=== PATIENT | male | born 1975 | race American Indian/Alaskan Native ===

== ENCOUNTER 2016-08-20 09:43 | Emergency (ER) | payer SELFPAY ==
[2016-08-20 10:11] VITALS: BP 123/77
--- NOTE | 2016-08-20 10:43 | XRay Report ---
ROUTINE CHEST, TWO VIEWS: HISTORY: Shortness of breath. The trachea, heart, mediastinal contour, lung argueta and bony thorax are unremarkable. IMPRESSION: Unremarkable chest x-ray.
[2016-08-20 10:56] LABS: Basophils % (Auto) 0.7 % (0.0-1.8); Eosinophils % (Auto) 1.9 % (0.0-4.3); Hematocrit 38.4 % (35.5-45.6); Hemoglobin 12.5 gm/dl (11.8-15.2); Mean Corpuscular HGB Conc 33 % (32-34); Mean Corpuscular Volume 78 fl (84-94); Platelet Count 292 K/mm3 (140-440); Red Blood Count 4.95 M/mm3 (3.65-5.03); Red Cell Distribution Width 14.6 % (13.2-15.2)
[2016-08-20 10:58] LABS: Mean Corpuscular Hemoglobin 25 pg (28-32)
[2016-08-20 11:18] LABS: Anion Gap 23 mmol/L; B-Hydroxybutyrate 0.8 mg/dL (0.2-2.8); BUN/Creatinine Ratio 16.25; Blood Urea Nitrogen 13 mg/dL (9-20); Calcium 9.7 mg/dL (8.4-10.2); Carbon Dioxide 25 mmol/L (22-30); Chloride 94.5 mmol/L (98-107); Glucose 374 mg/dL (75-100); Potassium 4.3 mmol/L (3.6-5.0); Sodium 138 mmol/L (137-145)
[2016-08-20 11:53] LABS: Bilirubin,Urine NEG (Negative); Blood,Urine NEG (Negative); Ketones,Urine NEG (Negative); Leukocyte Esterase,Urine NEG (Negative); Mucus,Urine FEW /HPF; Nitrite,Urine NEG (Negative); Protein,Urine <15 mg/dL mg/dL (Negative); Urobilinogen,Urine < 2.0 mg/dL (<2.0); WBC,Urine < 1.0 /HPF (0.0-6.0)
[2016-08-20] MEDS ORDERED: TORADOL IM ONE (17:39)
[2016-08-20] MEDS ORDERED: PERCOCET 5/325 PO ONE (17:39)
--- NOTE | 2016-08-20 18:06 | Emergency Department Report ---
ED General Adult HPI - General Chief complaint: Dyspnea/Respdistress Stated complaint: LT HAND SWELLING/NUMBNESS/ELEVATED SUGAR Time Seen by Provider: 08/20/16 17:18 Source: patient Mode of arrival: Ambulatory Limitations: No Limitations - History of Present Illness Initial comments: 41-year-old male with a past medical history of hypertension and chronic back pain with associated left leg radiculopathy presents to the hospital with complaints of elevated sugar and intermittent left hand pain and swelling. Patient denies a previous history of diabetes. His sugar was in the 380s at home so he came to the ER for evaluation. Patient last meal was this morning he has been drinking water since being in the ED. Patient complains of intermittent left hand swelling for the last 4 days. Pain is in the whole hand , worse with palpation and movement. No alleviating factors. Pain rated moderate to severe in intensity. He complains of shooting pain extending from his hand up to his elbow. Denies a previous history of gout or trauma. Patient has been having intermittent hand swelling for the past 6-7 months and has not had it evaluated by a physician. PMD: None - Related Data Previous Rx's Medication Instructions Recorded Last Taken Type Carvedilol [Coreg] 12.5 mg PO BID #60 tablet 12/03/15 Unknown Rx HYDROcodone/APAP 5-325 [[place] 1 each PO Q6HR PRN #20 tablet 12/03/15 Unknown Rx 5-325 mg TAB] Lisinopril/Hydrochlorothiazide 1 tab PO QDAY #30 tablet 12/03/15 Unknown Rx [Zestoretic 20-25 mg] amLODIPine [Norvasc] 10 mg PO DAILY #30 tablet 12/03/15 Unknown Rx cloNIDine [Catapres] 0.1 mg PO BID #60 tablet 12/03/15 Unknown Rx Diazepam Tab [Valium] 5 mg PO TID PRN #12 tablet 03/03/16 Unknown Rx Ibuprofen [Motrin 600 MG tab] 600 mg PO Q8H PRN #20 tablet 03/03/16 Unknown Rx hydrALAZINE [Apresoline TAB] 25 mg PO Q8HR #90 tab 03/03/16 Unknown Rx Ibuprofen [Motrin] 800 mg PO Q8HR PRN #30 tablet 08/20/16 Unknown Rx metFORMIN [Glucophage] 500 mg PO BID #60 tablet 08/20/16 Unknown Rx oxyCODONE /ACETAMINOPHEN [Percocet 1 tab PO Q6HR PRN #20 tablet 08/20/16 Unknown Rx 5/325] Allergies Allergy/AdvReac Type Severity Reaction Status Date / Time tomato [Tomato] Allergy Swelling Verified 03/03/16 09:43 ED Review of Systems ROS: Stated complaint: LT HAND SWELLING/NUMBNESS/ELEVATED SUGAR Other details as noted in HPI Comment: All other systems reviewed and negative Other: Constitutional: No fevers chills Eyes: No eye pain visual changes ENT: No ear pain or throat pain Neck: Denies pain Respiratory: Denies cough wheezing shortness of breath Cardiovascular: Denies chest pain, palpitations, syncope GI: Denies abdominal pain, nausea, vomiting, diarrhea : Denies dysuria Musculoskeletal: as per hpi Skin: Denies rash, lesions, erythema Neurologic: Denies headache, numbness, weakness ED Past Medical Hx - Past Medical History Hx Hypertension: Yes Hx CVA: Yes (MILD LEFT SIDED WEAKNESS) Hx Congestive Heart Failure: No Hx Diabetes: No Hx GERD: Yes Hx Headaches / Migraines: Yes Hx Asthma: No Hx COPD: No Additional medical history: sleep apnea. chronic back pain - Surgical History Additional Surgical History: Right upper extremity surgery secondary to trauma, cardiac catheterization - Social History Smoking Status: Never Smoker Substance Use Type: Prescribed - Medications Home Medications: Home Medications Medication Instructions Recorded Confirmed Last Taken Type Carvedilol [Coreg] 12.5 mg PO BID #60 tablet 12/03/15 Unknown Rx HYDROcodone/APAP 5-325 [[place] 1 each PO Q6HR PRN #20 tablet 12/03/15 Unknown Rx 5-325 mg TAB] Lisinopril/Hydrochlorothiazide 1 tab PO QDAY #30 tablet 12/03/15 Unknown Rx [Zestoretic 20-25 mg] amLODIPine [Norvasc] 10 mg PO DAILY #30 tablet 12/03/15 Unknown Rx cloNIDine [Catapres] 0.1 mg PO BID #60 tablet 12/03/15 Unknown Rx Diazepam Tab [Valium] 5 mg PO TID PRN #12 tablet 03/03/16 Unknown Rx Ibuprofen [Motrin 600 MG tab] 600 mg PO Q8H PRN #20 tablet 03/03/16 Unknown Rx hydrALAZINE [Apresoline TAB] 25 mg PO Q8HR #90 tab 03/03/16 Unknown Rx Ibuprofen [Motrin] 800 mg PO Q8HR PRN #30 tablet 08/20/16 Unknown Rx metFORMIN [Glucophage] 500 mg PO BID #60 tablet 08/20/16 Unknown Rx oxyCODONE /ACETAMINOPHEN [Percocet 1 tab PO Q6HR PRN #20 tablet 08/20/16 Unknown Rx 5/325] ED Physical Exam - General Limitations: No Limitations - Other Other exam information: General: No limitations, patient is alert in no acute distress Head exam: Atraumatic, normocephalic Eyes exam: Normal appearance, pupils equal reactive to light, extraocular movements intact ENT: Moist mucous membrane, normal oropharynx Neck exam: Normal inspection, full range of motion, no meningismus nontender Respiratory exam: Clear to auscultation bilateral, no wheezes, rales, crackles Cardiovascular: Normal rate and rhythm, normal heart sounds Abdomen: Soft, nondistended, and nontender, with normal bowel sounds, no rebound, or guarding Extremity: Full range of motion, mild generalized left hand swelling noted without warmth or erythema. Tenderness to the entire hand without any specific area being more tender. Refill less than 2 seconds. Back: Normal Inspection, full range of motion, chronic back pain Neurologic: Alert, oriented x3, cranial nerves intact, chronic left leg radiculopathy/numbness Psychiatric: normal affect, normal mood Skin: Warm, dry, intact ED Course Vital Signs 08/20/16 10:06 Temperature 97.7 F Pulse Rate 81 Respiratory 18 Rate Blood Pressure 123/77 O2 Sat by Pulse 95 Oximetry - Reevaluation(s) Reevaluation #1: 08/20/16 20:12 Patient treated in the ED with Percocet and insulin subcutaneous as well as left wrist splint ED Medical Decision Making - Lab Data Result diagrams: 08/20/16 10:44 08/20/16 10:44 Lab Results 08/20/16 08/20/16 08/20/16 Range/Units 10:11 10:44 10:44 WBC 5.0 (4.5-11.0) K/mm3 RBC 4.95 (3.65-5.03) M/mm3 Hgb 12.5 (11.8-15.2) gm/dl Hct 38.4 (35.5-45.6) % MCV 78 L (84-94) fl MCH 25 L (28-32) pg MCHC 33 (32-34) % RDW 14.6 (13.2-15.2) % Plt Count 292 (140-440) K/mm3 Lymph % (Auto) 28.1 (13.4-35.0) % [place] % (Auto) 7.2 (0.0-7.3) % Eos % (Auto) 1.9 (0.0-4.3) % Baso % (Auto) 0.7 (0.0-1.8) % Lymph # 1.4 (1.2-5.4) K/mm3 [place] # 0.4 (0.0-0.8) K/mm3 Eos # 0.1 (0.0-0.4) K/mm3 Baso # 0.0 (0.0-0.1) K/mm3 Seg Neutrophils % 62.1 (40.0-70.0) % Seg Neutrophils # 3.1 (1.8-7.7) K/mm3 VBG pH (7.320-7.420) Sodium 138 (137-145) mmol/L Potassium 4.3 (3.6-5.0) mmol/L Chloride 94.5 L (98-107) mmol/L Carbon Dioxide 25 (22-30) mmol/L Anion Gap 23 mmol/L BUN 13 (9-20) mg/dL Creatinine 0.8 (0.8-1.5) mg/dL Estimated GFR > 60 ml/min BUN/Creatinine Ratio 16.25 % Glucose 374 H (75-100) mg/dL POC Glucose 387 H (70-105) Hemoglobin A1c (4-6) % Uric Acid (3.5-7.6) mg/dL Calcium 9.7 (8.4-10.2) mg/dL Troponin T < 0.010 (0.00-0.029) ng/mL Urine Color (Yellow) Urine Turbidity (Clear) Urine pH (5.0-7.0) Ur Specific [place] (1.003-1.030) Urine Protein (Negative) mg/dL Urine Glucose (UA) (Negative) mg/dL Urine Ketones (Negative) mg/dL Urine Blood (Negative) Urine Nitrite (Negative) Urine Bilirubin (Negative) Urine Urobilinogen (<2.0) mg/dL Ur Leukocyte Esterase (Negative) Urine WBC (Auto) (0.0-6.0) /HPF Urine RBC (Auto) (0.0-6.0) /HPF Urine Mucus /HPF Ketones 0.8 (0.2-2.8) mg/dL 08/20/16 08/20/16 08/20/16 Range/Units 10:44 10:44 10:44 WBC (4.5-11.0) K/mm3 RBC (3.65-5.03) M/mm3 Hgb (11.8-15.2) gm/dl Hct (35.5-45.6) % MCV (84-94) fl MCH (28-32) pg MCHC (32-34) % RDW (13.2-15.2) % Plt Count (140-440) K/mm3 Lymph % (Auto) (13.4-35.0) % [place] % (Auto) (0.0-7.3) % Eos % (Auto) (0.0-4.3) % Baso % (Auto) (0.0-1.8) % Lymph # (1.2-5.4) K/mm3 [place] # (0.0-0.8) K/mm3 Eos # (0.0-0.4) K/mm3 Baso # (0.0-0.1) K/mm3 Seg Neutrophils % (40.0-70.0) % Seg Neutrophils # (1.8-7.7) K/mm3 VBG pH 7.403 (7.320-7.420) Sodium (137-145) mmol/L Potassium (3.6-5.0) mmol/L Chloride (98-107) mmol/L Carbon Dioxide (22-30) mmol/L Anion Gap mmol/L BUN (9-20) mg/dL Creatinine (0.8-1.5) mg/dL Estimated GFR ml/min BUN/Creatinine Ratio % Glucose (75-100) mg/dL POC Glucose (70-105) Hemoglobin A1c 14.7 H (4-6) % Uric Acid 7.0 (3.5-7.6) mg/dL Calcium (8.4-10.2) mg/dL Troponin T (0.00-0.029) ng/mL Urine Color (Yellow) Urine Turbidity (Clear) Urine pH (5.0-7.0) Ur Specific [place] (1.003-1.030) Urine Protein (Negative) mg/dL Urine Glucose (UA) (Negative) mg/dL Urine Ketones (Negative) mg/dL Urine Blood (Negative) Urine Nitrite (Negative) Urine Bilirubin (Negative) Urine Urobilinogen (<2.0) mg/dL Ur Leukocyte Esterase (Negative) Urine WBC (Auto) (0.0-6.0) /HPF Urine RBC (Auto) (0.0-6.0) /HPF Urine Mucus /HPF Ketones (0.2-2.8) mg/dL 08/20/16 08/20/16 Range/Units 11:32 17:28 WBC (4.5-11.0) K/mm3 RBC (3.65-5.03) M/mm3 Hgb (11.8-15.2) gm/dl Hct (35.5-45.6) % MCV (84-94) fl MCH (28-32) pg MCHC (32-34) % RDW (13.2-15.2) % Plt Count (140-440) K/mm3 Lymph % (Auto) (13.4-35.0) % [place] % (Auto) (0.0-7.3) % Eos % (Auto) (0.0-4.3) % Baso % (Auto) (0.0-1.8) % Lymph # (1.2-5.4) K/mm3 [place] # (0.0-0.8) K/mm3 Eos # (0.0-0.4) K/mm3 Baso # (0.0-0.1) K/mm3 Seg Neutrophils % (40.0-70.0) % Seg Neutrophils # (1.8-7.7) K/mm3 VBG pH (7.320-7.420) Sodium (137-145) mmol/L Potassium (3.6-5.0) mmol/L Chloride (98-107) mmol/L Carbon Dioxide (22-30) mmol/L Anion Gap mmol/L BUN (9-20) mg/dL Creatinine (0.8-1.5) mg/dL Estimated GFR ml/min BUN/Creatinine Ratio % Glucose (75-100) mg/dL POC Glucose 198 H (70-105) Hemoglobin A1c (4-6) % Uric Acid (3.5-7.6) mg/dL Calcium (8.4-10.2) mg/dL Troponin T (0.00-0.029) ng/mL Urine Color Straw (Yellow) Urine Turbidity Clear (Clear) Urine pH 5.0 (5.0-7.0) Ur Specific [place] 1.024 (1.003-1.030) Urine Protein <15 mg/dl (Negative) mg/dL Urine Glucose (UA) >=500 (Negative) mg/dL Urine Ketones Neg (Negative) mg/dL Urine Blood Neg (Negative) Urine Nitrite Neg (Negative) Urine Bilirubin Neg (Negative) Urine Urobilinogen < 2.0 (<2.0) mg/dL Ur Leukocyte Esterase Neg (Negative) Urine WBC (Auto) < 1.0 (0.0-6.0) /HPF Urine RBC (Auto) 3.0 (0.0-6.0) /HPF Urine Mucus Few /HPF Ketones (0.2-2.8) mg/dL - EKG Data -: EKG Interpreted by Me (nsr 72 flat lat t waves) - EKG Data When compared to previous EKG there are: no significant change (compared to 12/02) - Radiology Data Radiology results: image reviewed (cxr : naf) - Medical Decision Making Elevated hemoglobin A1c conference. Patient is a new onset diabetic. He will be started metformin 500 mg twice a day., Shortness time the cause of patient' s intermittent left hand pain and swelling. Does not appear to be infectious or trauma related at this time. Patient placed in a wrist splint for comfort and will be instructed to follow-up with primary care doctor for further evaluation. - Differential Diagnosis arthritis, radiculopathy, carpal tunnel syndrome, neuropathy, diabetes Critical Care Time: No Critical care attestation.: If time is entered above; I have spent that time in minutes in the direct care of this critically ill patient, excluding procedure time. ED Disposition Clinical Impression: Chronic back pain, Left hand pain, Diabetes mellitus, new onset Disposition: DISCHARGED TO HOME OR SELFCARE Is pt being admited?: No Does the pt Need Aspirin: No Condition: Stable Instructions: Arthralgia (ED), Diabetes Mellitus Type 2 in Adults (ED) Additional Instructions: Take the medication as prescribed. Is very important that you follow up with the primary care doctor and orthopedic doctor provided for further workup and evaluation Prescriptions: Ibuprofen [Motrin] 800 mg PO Q8HR PRN #30 tablet PRN Reason: Pain metFORMIN [Glucophage] 500 mg PO BID #60 tablet oxyCODONE /ACETAMINOPHEN [Percocet 5/325] 1 tab PO Q6HR PRN #20 tablet PRN Reason: Pain Referrals: [facility] [Provider Group] - 3-5 Days KOLE GUNDERSON MD [Staff Physician] - 3-5 Days (orthopedic) JOSE SIFUENTES MD [Staff Physician] - 3-5 Days (primary care) Time of Disposition: 20:18
== END 2016-08-20 20:33 | disposition home or self-care (01) ==
LOC: ED 09:43
DX: E11.9 Type 2 diabetes mellitus without complications (principal); M54.9 Dorsalgia, unspecified; G89.29 Other chronic pain; M79.642 Pain in left hand; I10 Essential (primary) hypertension; K21.9 Gastro-esophageal reflux disease without esophagitis; G43.909 Migraine, unspecified, not intractable, without status migrainosus; Z86.73 Personal history of transient ischemic attack (TIA), and cerebral infarction without residual deficits
CPT/HCPCS: 36415; 71020; 80048; 81001; 82010; 82805; 82962; 83036; 84484; 84550; 85025; 93005; 93010; 96372; 99284; J1885; J1815

== ENCOUNTER 2016-10-31 09:26 | Emergency (ER) | payer SELFPAY ==
[2016-10-31 10:21] VITALS: BP 125/76
--- NOTE | 2016-10-31 11:01 | Emergency Department Report ---
ED Neck Pain/Injury HPI - General Chief Complaint: Neck Pain/Injury Stated Complaint: LEFT ARM SWOLLEN/NUMB/NECK PAINS/STIFFNESS/CHEST P Time Seen by Provider: 10/31/16 10:46 Source: patient Mode of arrival: Ambulatory Limitations: Physical Limitation - History of Present Illness Initial Comments: patient states that 2 days ago he was hit in left shoulder/arm by a door. The next day his upper arm was hurting and then today he woke up with pain in left side of his neck. MD Complaint: neck pain -: Gradual, This morning Radiation: left shoulder Severity: moderate Severity scale (0 -10): 5 Quality: sharp, other (tight) Consistency: intermittent Improves With: remaining still Worsens With: movement of extremity, movement of neck Associated Symptoms: denies: headache, fever, numbness, tingling, weakness, vertigo, difficulty walking, swollen glands, nausea, vomiting Treatments Prior to Arrival: none - Related Data Previous Rx's Medication Instructions Recorded Last Taken Type Carvedilol [Coreg] 12.5 mg PO BID #60 tablet 12/03/15 Unknown Rx Lisinopril/Hydrochlorothiazide 1 tab PO QDAY #30 tablet 12/03/15 Unknown Rx [Zestoretic 20-25 mg] amLODIPine [Norvasc] 10 mg PO DAILY #30 tablet 12/03/15 Unknown Rx cloNIDine [Catapres] 0.1 mg PO BID #60 tablet 12/03/15 Unknown Rx hydrALAZINE [Apresoline TAB] 25 mg PO Q8HR #90 tab 03/03/16 Unknown Rx metFORMIN [Glucophage] 500 mg PO BID #60 tablet 08/20/16 Unknown Rx Cyclobenzaprine [Flexeril] 10 mg PO TID PRN #30 tablet 10/31/16 Unknown Rx Naproxen [Naprosyn TAB] 500 mg PO BID #30 tablet 10/31/16 Unknown Rx traMADol [Ultram] 50 mg PO Q4HR PRN #30 tablet 10/31/16 Unknown Rx Allergies Allergy/AdvReac Type Severity Reaction Status Date / Time tomato [Tomato] Allergy Swelling Verified 10/31/16 10:16 ED Review of Systems ROS: Stated complaint: LEFT ARM SWOLLEN/NUMB/NECK PAINS/STIFFNESS/CHEST P Other details as noted in HPI Constitutional: denies: chills, fever Eyes: denies: eye pain, eye discharge, vision change ENT: denies: ear pain, throat pain Respiratory: denies: cough, shortness of breath, wheezing Cardiovascular: denies: chest pain, palpitations Endocrine: no symptoms reported Gastrointestinal: denies: abdominal pain, nausea, diarrhea Genitourinary: denies: urgency, dysuria Musculoskeletal: arthralgia, myalgia. denies: back pain Skin: denies: rash, lesions Neurological: denies: headache, weakness, numbness, paresthesias Psychiatric: denies: anxiety, depression Hematological/Lymphatic: denies: easy bleeding, easy bruising ED Past Medical Hx - Past Medical History Hx Hypertension: Yes Hx CVA: Yes (MILD LEFT SIDED WEAKNESS) Hx Congestive Heart Failure: No Hx Diabetes: Yes Hx GERD: Yes Hx Headaches / Migraines: Yes Hx Asthma: No Hx COPD: No Additional medical history: sleep apnea. chronic back pain - Surgical History Additional Surgical History: Right upper extremity surgery secondary to trauma, cardiac catheterization - Social History Smoking Status: Former Smoker Substance Use Type: Prescribed - Medications Home Medications: Home Medications Medication Instructions Recorded Confirmed Last Taken Type Carvedilol [Coreg] 12.5 mg PO BID #60 tablet 12/03/15 Unknown Rx Lisinopril/Hydrochlorothiazide 1 tab PO QDAY #30 tablet 12/03/15 Unknown Rx [Zestoretic 20-25 mg] amLODIPine [Norvasc] 10 mg PO DAILY #30 tablet 12/03/15 Unknown Rx cloNIDine [Catapres] 0.1 mg PO BID #60 tablet 12/03/15 Unknown Rx hydrALAZINE [Apresoline TAB] 25 mg PO Q8HR #90 tab 03/03/16 Unknown Rx metFORMIN [Glucophage] 500 mg PO BID #60 tablet 08/20/16 Unknown Rx Cyclobenzaprine [Flexeril] 10 mg PO TID PRN #30 tablet 10/31/16 Unknown Rx Naproxen [Naprosyn TAB] 500 mg PO BID #30 tablet 10/31/16 Unknown Rx traMADol [Ultram] 50 mg PO Q4HR PRN #30 tablet 10/31/16 Unknown Rx ED Physical Exam - General Limitations: Physical Limitation General appearance: alert, in no apparent distress - Head Head exam: Present: atraumatic, normocephalic - Eye Eye exam: Present: normal appearance, PERRL, EOMI Pupils: Present: normal accommodation - ENT ENT exam: Present: normal exam, mucous membranes moist - Neck Neck exam: Present: normal inspection, tenderness (left lateral muscle tenderness and swelling noted ). Absent: full ROM (limited right lateral rotation due to pain), lymphadenopathy, thyromegaly - Respiratory Respiratory exam: Present: normal lung sounds bilaterally. Absent: respiratory distress - Cardiovascular Cardiovascular Exam: Present: regular rate, normal rhythm. Absent: systolic murmur, diastolic murmur, rubs, gallop - GI/Abdominal GI/Abdominal exam: Present: soft, normal bowel sounds - Rectal Rectal exam: Present: deferred - Extremities Exam Extremities exam: Present: normal inspection, tenderness (left shoulder tenderness), normal capillary refill. Absent: full ROM (limited left shoulder abduction due to pain), pedal edema, joint swelling - Expanded Upper Extremity Exam Left Shoulder Exam: Present: tenderness (left superior and lateral shoulder and proximal arm tenderness). Absent: full ROM (limitied abduction due to pain), abrasion, laceration, ecchymosis, deformity, dislocation, erythema, tenderness over AC joint Elbow exam: Present: normal inspection Vascular: Present: normal capillary refill. Absent: vascular compromise, pulse deficit brachial art - Back Exam Back exam: Present: normal inspection - Neurological Exam Neurological exam: Present: alert, oriented X3, CN II-XII intact, reflexes normal. Absent: motor sensory deficit - Psychiatric Psychiatric exam: Present: normal affect, normal mood - Skin Skin exam: Present: warm, dry, intact, normal color. Absent: rash ED Course Vital Signs 10/31/16 10:18 Temperature 98.2 F Pulse Rate 77 Respiratory 16 Rate Blood Pressure 125/76 O2 Sat by Pulse 96 Oximetry ED Medical Decision Making - Radiology Data Radiology results: report reviewed, image reviewed Spondylosis of C4-C5 and C5-C6. Shoulder with arthritic changes and cortical cystic irregularity consistent with old injury vs chronic impingement. No acute pathology noted - Medical Decision Making Patient is non-toxic and hemodynamically stable. Exam findings are consistent with muscular injury and spasm. Images reviewed and discussed with patient. Will treat conservatively now with referral to ortho. Patient is stable for discharge. Critical care attestation.: If time is entered above; I have spent that time in minutes in the direct care of this critically ill patient, excluding procedure time. ED Disposition Clinical Impression: Muscle spasms of neck, Left shoulder pain, Contusion of left arm Disposition: DISCHARGED TO HOME OR SELFCARE Is pt being admited?: No Does the pt Need Aspirin: No Condition: Good Instructions: Spasmodic Torticollis (ED), Contusion in Adults (ED), Degenerative Disc Disease (ED) Prescriptions: Cyclobenzaprine [Flexeril] 10 mg PO TID PRN #30 tablet PRN Reason: Muscle Spasm Naproxen [Naprosyn TAB] 500 mg PO BID #30 tablet traMADol [Ultram] 50 mg PO Q4HR PRN #30 tablet PRN Reason: Pain Referrals: PRIMARY CARE, [Primary Care Provider] - 3-5 Days KOLE GUNDERSON MD [Staff Physician] - 3-5 Days Time of Disposition: 12:26
--- NOTE | 2016-10-31 11:55 | XRay Report ---
Left shoulder 3 views: History: Left shoulder pain. Injury. Findings: Mild arthritic changes a.c. joint. The glenohumeral joint appears unremarkable. Cortical irregularity with cystic changes at the greater tuberosity may be related to old injury/chronic impingement. No soft tissue calcification. Impression: Findings as detailed above.
--- NOTE | 2016-10-31 11:56 | XRay Report ---
Cervical spine 3 views: History: Sharp pain radiating to neck. Findings: Normal height of vertebral bodies. Minimal decrease in height of C4-C5 and C5-C6 with anterior osteophytes at the articular surfaces. No fracture. Normal prevertebral soft tissue. Impression: Spondylosis C4-C5 and C5-C6.
== END 2016-10-31 12:49 | disposition home or self-care (01) ==
LOC: ED 09:26
DX: S40.022A Contusion of left upper arm, initial encounter (principal); I10 Essential (primary) hypertension; I63.9 Cerebral infarction, unspecified; E11.9 Type 2 diabetes mellitus without complications; K21.9 Gastro-esophageal reflux disease without esophagitis; M25.512 Pain in left shoulder; M62.838 Other muscle spasm; G89.29 Other chronic pain; Z87.891 Personal history of nicotine dependence; Z91.018 Allergy to other foods; W22.8XXA Striking against or struck by other objects, initial encounter; Y93.89 Activity, other specified; Y99.9 Unspecified external cause status; Y92.89 Other specified places as the place of occurrence of the external cause
CPT/HCPCS: 72040

== ENCOUNTER 2017-03-29 15:54 | Emergency (ER) | payer SELFPAY ==
[2017-03-29 16:38] LABS: Basophils % (Auto) 0.4 % (0.0-1.8); Eosinophils % (Auto) 1.2 % (0.0-4.3); Hemoglobin 11.8 gm/dl (11.8-15.2); Mean Corpuscular HGB Conc 34 % (32-34); Mean Corpuscular Volume 75 fl (84-94); Platelet Count 272 K/mm3 (140-440); Red Blood Count 4.67 M/mm3 (3.65-5.03); Red Cell Distribution Width 15.5 % (13.2-15.2); White Blood Count 6.8 K/mm3 (4.5-11.0)
[2017-03-29 16:49] LABS: Mean Corpuscular Hemoglobin 25 pg (28-32)
[2017-03-29 17:07] LABS: Anion Gap 20 mmol/L; BUN/Creatinine Ratio 25.71; Blood Urea Nitrogen 18 mg/dL (9-20); Calcium 9.4 mg/dL (8.4-10.2); Carbon Dioxide 26 mmol/L (22-30); Chloride 95.8 mmol/L (98-107); Glucose 140 mg/dL (75-100); Potassium 3.5 mmol/L (3.6-5.0); Sodium 138 mmol/L (137-145)
--- NOTE | 2017-03-29 17:31 | Emergency Department Report ---
ED Chest Pain HPI - General Chief Complaint: Chest Pain Stated Complaint: CHEST PAIN Time Seen by Provider: 03/29/17 17:21 Source: patient Mode of arrival: Stretcher Limitations: No Limitations - History of Present Illness Initial Comments: 42 years old male history of high blood pressure diabetes and irregular heartbeat presented with left-sided chest pain that is being unknown for 2 weeks worse since last night associated with shortness of breath described the pain as pressure that radiated to his left shoulder. Patient also stated that he's been having a headache for the last 2 month does not have any history of frequent headache before. Patient denied any fever no nausea no vomiting. MD Complaint: chest pain -: Gradual Onset: during rest, during exertion Severity: moderate Severity scale (0 -10): 6 Quality: pressure Worsens With: exertion - Related Data Previous Rx's Medication Instructions Recorded Last Taken Type Carvedilol [Coreg] 12.5 mg PO BID #60 tablet 12/03/15 Unknown Rx Lisinopril/Hydrochlorothiazide 1 tab PO QDAY #30 tablet 12/03/15 Unknown Rx [Zestoretic 20-25 mg] amLODIPine [Norvasc] 10 mg PO DAILY #30 tablet 12/03/15 Unknown Rx cloNIDine [Catapres] 0.1 mg PO BID #60 tablet 12/03/15 Unknown Rx hydrALAZINE [Apresoline TAB] 25 mg PO Q8HR #90 tab 03/03/16 Unknown Rx metFORMIN [Glucophage] 500 mg PO BID #60 tablet 08/20/16 Unknown Rx Cyclobenzaprine [Flexeril] 10 mg PO TID PRN #30 tablet 10/31/16 Unknown Rx Naproxen [Naprosyn TAB] 500 mg PO BID #30 tablet 10/31/16 Unknown Rx traMADol [Ultram] 50 mg PO Q4HR PRN #30 tablet 10/31/16 Unknown Rx Amoxicillin [Amoxicillin TAB] 875 mg PO BID #14 tablet 03/29/17 Unknown Rx Ondansetron [Zofran Odt] 4 mg PO Q8HR PRN #14 tab.rapdis 03/29/17 Unknown Rx Prednisone [predniSONE 10 mg 10 mg PO .TAPER #1 tab.ds.pk 03/29/17 Unknown Rx (6-Day Pack, 21 Tabs)] traMADol [Ultram 50 MG tab] 50 mg PO Q4HR PRN #14 tablet 03/29/17 Unknown Rx Allergies Allergy/AdvReac Type Severity Reaction Status Date / Time tomato [Tomato] Allergy Swelling Verified 10/31/16 10:16 Heart Score - HEART Score History: Moderately suspicious EKG: Non-specific Age: < 45 Risk factors: 1-2 risk factors Troponin: < normal limit HEART Score: 3 - Critical Actions Critical Actions: 0-3 pts:0.9-1.7%risk of adverse cardiac event.Candidate for discharge ED Review of Systems ROS: Stated complaint: CHEST PAIN Other details as noted in HPI Comment: All other systems reviewed and negative Constitutional: denies: chills, fever Respiratory: shortness of breath. denies: cough Cardiovascular: chest pain. denies: palpitations Gastrointestinal: denies: nausea, vomiting Skin: denies: rash, lesions ED Past Medical Hx - Past Medical History Hx Hypertension: Yes Hx CVA: Yes (MILD LEFT SIDED WEAKNESS) Hx Congestive Heart Failure: No Hx Diabetes: Yes Hx GERD: Yes Hx Headaches / Migraines: Yes Hx Asthma: No Hx COPD: No Additional medical history: sleep apnea. chronic back pain - Surgical History Additional Surgical History: Right upper extremity surgery secondary to trauma, cardiac catheterization - Social History Smoking Status: Never Smoker Substance Use Type: None - Medications Home Medications: Home Medications Medication Instructions Recorded Confirmed Last Taken Type Carvedilol [Coreg] 12.5 mg PO BID #60 tablet 12/03/15 Unknown Rx Lisinopril/Hydrochlorothiazide 1 tab PO QDAY #30 tablet 12/03/15 Unknown Rx [Zestoretic 20-25 mg] amLODIPine [Norvasc] 10 mg PO DAILY #30 tablet 12/03/15 Unknown Rx cloNIDine [Catapres] 0.1 mg PO BID #60 tablet 12/03/15 Unknown Rx hydrALAZINE [Apresoline TAB] 25 mg PO Q8HR #90 tab 03/03/16 Unknown Rx metFORMIN [Glucophage] 500 mg PO BID #60 tablet 08/20/16 Unknown Rx Cyclobenzaprine [Flexeril] 10 mg PO TID PRN #30 tablet 10/31/16 Unknown Rx Naproxen [Naprosyn TAB] 500 mg PO BID #30 tablet 10/31/16 Unknown Rx traMADol [Ultram] 50 mg PO Q4HR PRN #30 tablet 10/31/16 Unknown Rx Amoxicillin [Amoxicillin TAB] 875 mg PO BID #14 tablet 03/29/17 Unknown Rx Ondansetron [Zofran Odt] 4 mg PO Q8HR PRN #14 tab.rapdis 03/29/17 Unknown Rx Prednisone [predniSONE 10 mg 10 mg PO .TAPER #1 tab.ds.pk 03/29/17 Unknown Rx (6-Day Pack, 21 Tabs)] traMADol [Ultram 50 MG tab] 50 mg PO Q4HR PRN #14 tablet 03/29/17 Unknown Rx ED Physical Exam - General Limitations: No Limitations General appearance: alert, in no apparent distress - Head Head exam: Present: atraumatic, normocephalic - Eye Eye exam: Present: normal appearance - ENT ENT exam: Present: normal exam - Neck Neck exam: Present: normal inspection. Absent: tenderness, full ROM, lymphadenopathy - Respiratory Respiratory exam: Present: normal lung sounds bilaterally. Absent: wheezes, rales, rhonchi - Cardiovascular Cardiovascular Exam: Present: regular rate, normal rhythm, normal heart sounds - GI/Abdominal GI/Abdominal exam: Present: soft. Absent: tenderness, guarding, rebound, rigid , mass, bruit, pulsatile mass, hernia - Extremities Exam Extremities exam: Present: normal inspection, full ROM - Back Exam Back exam: Present: normal inspection. Absent: CVA tenderness (R), CVA tenderness (L) - Neurological Exam Neurological exam: Present: alert, oriented X3, CN II-XII intact, normal gait - Psychiatric Psychiatric exam: Present: normal affect, normal mood - Skin Skin exam: Present: warm, intact, normal color ED Course Vital Signs 03/29/17 03/29/17 03/29/17 16:20 17:13 18:32 Temperature 98.1 F 98 F Pulse Rate 84 82 77 Respiratory 18 17 16 Rate Blood Pressure 125/80 125/79 129/71 [Left] O2 Sat by Pulse 98 98 98 Oximetry - Reevaluation(s) Reevaluation #1: 03/29/17 20:35 Patient is that he is feeling much better inform him about his blood work and his CT scan of the brain which is basically negative except for sinusitis. Patient does have 2 troponin negative in the ER advised him to follow-up with his primary care physician for further managment. REYNALDO score - Reynaldo Score Age > 65: (0) No Aspirin use within the Past 7 Days: (0) No 3 or more CAD Risk Factors: (0) No 2 or more Angina events in past 24 hrs: (1) Yes Known CAD with more than 50% Stenosis: (0) No Elevated Cardiac Markers: (0) No ST Deviation Greater than 0.5mm: (0) No REYNALDO Score: 1 ED Medical Decision Making - Lab Data Result diagrams: 03/29/17 16:23 03/29/17 16:23 Critical care attestation.: If time is entered above; I have spent that time in minutes in the direct care of this critically ill patient, excluding procedure time. ED Disposition Clinical Impression: Chest pain, Headache Disposition: DC-01 TO HOME OR SELFCARE Is pt being admited?: No Condition: Stable Instructions: Chest Pain (ED), Sinusitis (ED)
--- NOTE | 2017-03-29 18:23 | Cat Scan Report ---
FINAL REPORT PROCEDURE: CT HEAD/BRAIN WO CON TECHNIQUE: Computerized tomography of the head was performed without contrast material. HISTORY: headache COMPARISON: 06/27/2015 FINDINGS: Skull and scalp: Normal. Paranasal sinuses: Mucous retention cyst in the left maxillary sinus Ventricles and subarachnoid spaces: Normal. Cerebrum: No evidence of hemorrhage, acute infarction or mass . Cerebellum and brainstem: No evidence of hemorrhage, acute infarction or mass. Vasculature: Normal. Comments: Moderate diffuse atrophy. Parafalcine calcifications seen prominently lobular 2.8 centimeters x 1.4 centimeters anteriorly and 1.8 x 0.8 centimeters posteriorly with other smaller calcifications present. IMPRESSION: No acute intracranial pathology seen at this time
[2017-03-29] MEDS ORDERED: TORADOL IV ONE (20:38)
[2017-03-29 21:04] VITALS: BP 132/78
--- NOTE | 2017-03-30 08:54 | XRay Report ---
Portable chest: Chest pain. The cardiac silhouette appears enlarged when compared to prior studies including a comparable exam in October 2015. The left lung base is partially obscured by the density of the heart. There is no overt vascular congestion in the lungs are not otherwise remarkable. Impression: The findings are suspicious for an enlarged cardiac contour despite positioning of the exam. Recommendation: Repeat standard imaging recommended to her evaluate heart size.
== END 2017-03-29 21:36 | disposition home or self-care (01) ==
LOC: ED 15:54
DX: R07.89 Other chest pain (principal); R06.02 Shortness of breath; I10 Essential (primary) hypertension; E11.9 Type 2 diabetes mellitus without complications; K21.9 Gastro-esophageal reflux disease without esophagitis; G43.909 Migraine, unspecified, not intractable, without status migrainosus; Z91.018 Allergy to other foods; Z86.73 Personal history of transient ischemic attack (TIA), and cerebral infarction without residual deficits
CPT/HCPCS: 36415; 70450; 71010; 80048; 83880; 84484; 85025; 85379; 93005; 93010; 96374; 99285; J1885

== ENCOUNTER 2017-11-27 17:04 | Emergency (ER) | payer SELFPAY ==
[2017-11-27] MEDS ORDERED: ASPIRIN ONE (18:15)
[2017-11-27] MEDS ORDERED: ASPIRIN PO ONE (18:16)
[2017-11-27 18:34] LABS: Basophils % (Auto) 0.7 % (0.0-1.8); Eosinophils # (Auto) 0.2 K/mm3 (0.0-0.4); Eosinophils % (Auto) 2.6 % (0.0-4.3); Hematocrit 39.1 % (35.5-45.6); Hemoglobin 13.4 gm/dl (11.8-15.2); Lymphocytes # (Auto) 1.9 K/mm3 (1.2-5.4); Lymphocytes % (Auto) 29.8 % (13.4-35.0); Mean Corpuscular HGB Conc 34 % (32-34); Mean Corpuscular Volume 75 fl (84-94); Monocytes # (Auto) 0.5 K/mm3 (0.0-0.8); Monocytes % (Auto) 7.5 % (0.0-7.3); Platelet Count 299 K/mm3 (140-440); Red Cell Distribution Width 15.7 % (13.2-15.2)
[2017-11-27 18:35] LABS: Mean Corpuscular Hemoglobin 26 pg (28-32)
[2017-11-27 18:49] LABS: BUN/Creatinine Ratio 22; Blood Urea Nitrogen 13 mg/dL (9-20); Calcium 9.5 mg/dL (8.4-10.2); Hemolysis Index 3
[2017-11-27] MEDS ORDERED: NORMODYNE IV ONE (20:30)
--- NOTE | 2017-11-27 21:06 | Emergency Department Report ---
ED Chest Pain HPI - General Chief Complaint: Chest Pain Stated Complaint: CHEST PAIN Time Seen by Provider: 11/27/17 20:21 Source: patient Mode of arrival: Wheelchair Limitations: Physical Limitation - History of Present Illness Initial Comments: The patient is 42 years old male with history of hypertension, diabetes and possible coronary artery disease. Patient is noncompliant with his medication. Patient presented to the ER complaining of left-sided chest pain associated with left upper extremity numbness and tingling sensation and headache. Patient stated that his symptoms started yesterday. Patient denied any shortness of breath or cough. Patient denies weakness, neck pain or neck stiffness. MD Complaint: chest pain -: days(s) Pain Location: left chest Pain Radiation: LUE Severity: moderate Severity scale (0 -10): 10 Quality: heaviness, sharp Consistency: constant Improves With: nothing - Related Data Home Medications Medication Instructions Recorded Confirmed Last Taken Lisinopril/Hydrochlorothiazide 20 mg PO QDAY 11/27/17 11/27/17 Unknown [Zestoretic 20-25 mg] cloNIDine [Catapres] 0.2 mg PO BID 11/27/17 11/27/17 Unknown Previous Rx's Medication Instructions Recorded Last Taken Type Carvedilol [Coreg] 12.5 mg PO BID #60 tablet 12/03/15 Unknown Rx amLODIPine [Norvasc] 10 mg PO DAILY #30 tablet 12/03/15 Unknown Rx metFORMIN [Glucophage] 500 mg PO BID #60 tablet 08/20/16 Unknown Rx Allergies Allergy/AdvReac Type Severity Reaction Status Date / Time tomato [Tomato] Allergy Swelling Verified 11/27/17 18:30 Heart Score - HEART Score History: Moderately suspicious EKG: Non-specific Age: < 45 Risk factors: > 3 risk factors or hx of atherosclerotic disease Troponin: < normal limit HEART Score: 4 - Critical Actions Critical Actions: 4-6 pts:12-16.6% risk of adverse cardiac event. Should be admitted ED Review of Systems ROS: Stated complaint: CHEST PAIN Other details as noted in HPI Comment: All other systems reviewed and negative Constitutional: denies: chills, fever Respiratory: denies: cough, shortness of breath, SOB with exertion, SOB at rest , wheezing Cardiovascular: chest pain Gastrointestinal: denies: abdominal pain, nausea, vomiting, diarrhea, constipation, hematemesis, melena, hematochezia Genitourinary: denies: urgency, dysuria, frequency, hematuria Neurological: headache, numbness. denies: weakness, paresthesias, confusion, abnormal gait, vertigo ED Past Medical Hx - Past Medical History Hx Hypertension: Yes Hx CVA: Yes (MILD LEFT SIDED WEAKNESS) Hx Congestive Heart Failure: No Hx Diabetes: Yes Hx GERD: Yes Hx Headaches / Migraines: Yes Hx Asthma: No Hx COPD: No Additional medical history: sleep apnea. chronic back pain - Surgical History Additional Surgical History: Right upper extremity surgery secondary to trauma, cardiac catheterization - Social History Smoking Status: Former Smoker Substance Use Type: Alcohol - Medications Home Medications: Home Medications Medication Instructions Recorded Confirmed Last Taken Type Carvedilol [Coreg] 12.5 mg PO BID #60 tablet 12/03/15 11/27/17 Unknown Rx amLODIPine [Norvasc] 10 mg PO DAILY #30 tablet 12/03/15 11/27/17 Unknown Rx metFORMIN [Glucophage] 500 mg PO BID #60 tablet 08/20/16 11/27/17 Unknown Rx Lisinopril/Hydrochlorothiazide 20 mg PO QDAY 11/27/17 11/27/17 Unknown History [Zestoretic 20-25 mg] cloNIDine [Catapres] 0.2 mg PO BID 11/27/17 11/27/17 Unknown History ED Physical Exam - General Limitations: Physical Limitation General appearance: alert, in no apparent distress - Head Head exam: Present: atraumatic, normocephalic, normal inspection - Eye Eye exam: Present: normal appearance - ENT ENT exam: Present: normal exam, normal orophraynx, mucous membranes moist - Neck Neck exam: Present: normal inspection, full ROM. Absent: tenderness, meningismus, lymphadenopathy - Respiratory Respiratory exam: Present: normal lung sounds bilaterally. Absent: respiratory distress, wheezes, rales, rhonchi, stridor, chest wall tenderness, accessory muscle use, decreased breath sounds, prolonged expiratory - Cardiovascular Cardiovascular Exam: Present: regular rate, normal rhythm, normal heart sounds - GI/Abdominal GI/Abdominal exam: Present: soft, normal bowel sounds. Absent: distended, tenderness, guarding, rebound, rigid, organomegaly, mass, bruit, pulsatile mass , hernia - Extremities Exam Extremities exam: Present: normal inspection, full ROM, normal capillary refill. Absent: tenderness, pedal edema, calf tenderness - Back Exam Back exam: Present: normal inspection, full ROM. Absent: tenderness, CVA tenderness (R), CVA tenderness (L), muscle spasm, paraspinal tenderness, vertebral tenderness - Neurological Exam Neurological exam: Present: alert, oriented X3, CN II-XII intact, normal gait - Skin Skin exam: Present: warm, intact, normal color ED Course Vital Signs 11/27/17 11/27/17 11/27/17 17:10 20:56 21:18 Temperature 98.3 F Pulse Rate 119 H 85 94 H Respiratory 22 16 16 Rate Blood Pressure 193/133 Blood Pressure 193/133 161/102 145/94 [Right] O2 Sat by Pulse 99 96 95 Oximetry 11/27/17 21:26 Temperature Pulse Rate Respiratory Rate Blood Pressure 145/94 Blood Pressure [Right] O2 Sat by Pulse Oximetry ATIF score - Atif Score Age > 65: (0) No Aspirin use within the Past 7 Days: (0) No 3 or more CAD Risk Factors: (0) No 2 or more Angina events in past 24 hrs: (1) Yes Known CAD with more than 50% Stenosis: (0) No Elevated Cardiac Markers: (0) No ST Deviation Greater than 0.5mm: (0) No ATIF Score: 1 ED Medical Decision Making - Lab Data Result diagrams: 11/27/17 18:22 11/27/17 18:22 - EKG Data -: EKG Interpreted by Ms EKG shows normal: sinus rhythm Rate: tachycardia - EKG Data Interpretation: no acute changes - Radiology Data Radiology results: report reviewed Referring Physician: ALLYN QIU Patient Name: LIZZIE FRASER Date of : 1975 Sex: Male Report Date: 2017-11-27 Report Status: Finalized Findings [facility] [address] [place] [address] Cat Scan Report Signed Patient: LIZZIE FRASER MR#: [id number] : 1975 Acct:[id number] Age/Sex: 42 / M ADM Date: 11/27/17 Loc: ED Attending Dr: Ordering Physician: ALLYN QIU Date of Service: 11/27/17 Procedure(s): CT angio chest Accession Number(s): [id number] cc: ALLYN QIU FINAL REPORT EXAM: CT ANGIO CHEST HISTORY: CHEST PAIN/HIGH BP, R/O DISSECTION COMPARISON: None available. TECHNIQUE: Contiguous axial images were obtained. Additional sagittal and coronal reformatted images were obtained. Administration of IV contrast given per institution protocol. Images submitted for interpretation. 100 cc Omnipaque [id number]. FINDINGS: Heart normal in size. Thoracic aorta normal in caliber. No dissection. Ascending thoracic aorta measures 3.7 centimeters in diameter upper limits normal. The descending thoracic aorta measures 2.8 centimeters. No pulmonary embolus. No pathologically enlarged intrathoracic or axillary lymph nodes. Mild linear atelectasis at the lung bases. No dense airspace consolidation or pleural effusion. Visualized upper abdomen is grossly unremarkable. Tiny hiatal hernia. Very mild degenerative changes of the thoracic spine. IMPRESSION: Thoracic aorta is normal in caliber. No dissection or rupture. No pulmonary embolus. No focal consolidation or pleural effusion. Transcribed By: LMA Dictated By: DEA GUERRIER MD Electronically Authenticated By: DEA GUERRIER MD Signed Date/Time: 11/27/172131 Referring Physician: ALLYN QIU Patient Name: LIZZIE FRASER Date of : 1975 Sex: Male Report Date: 2017-11-27 Report Status: Finalized Findings [facility] [address] [id number] Cat Scan Report Signed Patient: LIZZIE FRASER MR#: [id number] : 1975 Acct:[id number] Age/Sex: 42 / M ADM Date: 11/27/17 Loc: ED Attending Dr: Ordering Physician: ALLYN QIU Date of Service: 11/27/17 Procedure(s): CT head/brain wo con Accession Number(s): [id number] cc: ALLYN QIU FINAL REPORT EXAM: CT HEAD/BRAIN WO CON HISTORY: headache/high BP COMPARISON: CT of the head from March 2017. TECHNIQUE: Axial images obtained skull base through vertex. FINDINGS: No acute intracranial hemorrhage, midline shift or pathologic extra axial fluid collection. Ventricles and cisterns are normal in size and configuration for the patient's age. Do-white differentiation preserved. Calvarium grossly intact. Prominent calcification along the falx, benign finding. Ocular globes are grossly unremarkable. Prominent retention cyst or polyps in the floors of the maxillary sinuses. Mastoid air cells are clear. Mild mucosal thickening of the ethmoid air cells. IMPRESSION: No grossly acute intracranial abnormality. Transcribed By: LMA Dictated By: DEA GUERRIER MD Electronically Authenticated By: DEA GUERRIER MD Signed Date/Time: 11/27/172114 DD/ 14 TD/TT: 11/27/172114 DD/ 31 TD/TT: 11/27/172131 - Medical Decision Making Patient stated that he is feeling much better. Chest pain completely resolved. Patient blood pressure now is 140/92. Patient workup included a chest CTA which she did not show any evidence of aortic dissection or aneurysm. CT brain negative for acute finding. I advised patient to be compliant with his medication and to follow up with his primary care physician in the next 2-3 days. I added Lasix to his regimen since he has bilateral lower extremity edema. Critical care time in (mins) excluding proc time.: 0 Critical care attestation.: If time is entered above; I have spent that time in minutes in the direct care of this critically ill patient, excluding procedure time. ED Disposition Clinical Impression: Chest pain, Hypertensive urgency, malignant, Left arm pain Disposition: - TO HOME OR SELFCARE Is pt being admited?: No Condition: Stable Instructions: Chest Pain (ED), Hypertensive Crisis (ED) Referrals: PRIMARY CARE, [Primary Care Provider] - 3-5 Days
--- NOTE | 2017-11-27 21:19 | Cat Scan Report ---
FINAL REPORT EXAM: CT HEAD/BRAIN WO CON HISTORY: headache/high BP COMPARISON: CT of the head from March 2017. TECHNIQUE: Axial images obtained skull base through vertex. FINDINGS: No acute intracranial hemorrhage, midline shift or pathologic extra axial fluid collection. Ventricles and cisterns are normal in size and configuration for the patient's age. Do-white differentiation preserved. Calvarium grossly intact. Prominent calcification along the falx, benign finding. Ocular globes are grossly unremarkable. Prominent retention cyst or polyps in the floors of the maxillary sinuses. Mastoid air cells are clear. Mild mucosal thickening of the ethmoid air cells. IMPRESSION: No grossly acute intracranial abnormality.
--- NOTE | 2017-11-27 21:36 | Cat Scan Report ---
FINAL REPORT EXAM: CT ANGIO CHEST HISTORY: CHEST PAIN/HIGH BP, R/O DISSECTION COMPARISON: None available. TECHNIQUE: Contiguous axial images were obtained. Additional sagittal and coronal reformatted images were obtained. Administration of IV contrast given per institution protocol. Images submitted for interpretation. 100 cc Omnipaque 350. FINDINGS: Heart normal in size. Thoracic aorta normal in caliber. No dissection. Ascending thoracic aorta measures 3.7 centimeters in diameter upper limits normal. The descending thoracic aorta measures 2.8 centimeters. No pulmonary embolus. No pathologically enlarged intrathoracic or axillary lymph nodes. Mild linear atelectasis at the lung bases. No dense airspace consolidation or pleural effusion. Visualized upper abdomen is grossly unremarkable. Tiny hiatal hernia. Very mild degenerative changes of the thoracic spine. IMPRESSION: Thoracic aorta is normal in caliber. No dissection or rupture. No pulmonary embolus. No focal consolidation or pleural effusion.
[2017-11-27] MEDS ORDERED: LASIX IV ONE (23:51)
[2017-11-28 00:11] VITALS: BP 144/92
== END 2017-11-28 00:10 | disposition home or self-care (01) ==
LOC: ED 17:04
DX: I16.0 Hypertensive urgency (principal); M79.602 Pain in left arm; I10 Essential (primary) hypertension; E11.9 Type 2 diabetes mellitus without complications; G43.909 Migraine, unspecified, not intractable, without status migrainosus; M54.9 Dorsalgia, unspecified; G89.29 Other chronic pain; Z87.891 Personal history of nicotine dependence; Z86.73 Personal history of transient ischemic attack (TIA), and cerebral infarction without residual deficits; Z91.018 Allergy to other foods
CPT/HCPCS: 36415; 70450; 71275; 80048; 82962; 83880; 84484; 85025; 93005; 93010; 96374; 99284; J1940; Q9967

== ENCOUNTER 2017-12-01 09:10 | Outpatient (CLI) | payer OTHER ==
--- NOTE | 2017-12-01 13:25 | XRay Report ---
XRAY LEFT SHOULDER THREE VIEWS: 12/01/17 09:10:00 CLINICAL: Spinal cord injury. Left shoulder injury. COMPARISON: 10/31/16 FINDINGS: No fracture or dislocation. Mild glenohumeral joint arthritis and mild degenerative change at the greater tuberosity of the humerus. Normal AC joint. The soft tissues are normal. IMPRESSION: No acute findings. Mild glenohumeral joint arthritis and mild degenerative change at the rotator cuff insertion.
--- NOTE | 2017-12-01 22:57 | XRay Report ---
FINAL REPORT PROCEDURE: XR SPINE LUMBOSACRAL 2-3V TECHNIQUE: Lumbar spine radiographs, including AP, lateral, and lumbosacral spot views. CPT 37403 HISTORY: SPINAL CORD INJURY, NECK PROBLEMS, LEFT SHOULDER INJURY,CONTUSION COMPARISON: No prior studies are available for comparison. FINDINGS: Alignment: Normal. Vertebral body heights/Disk spaces: Normal. Fracture(s): None. Facets: Normal. Bone mineralization: Normal. IMPRESSION: Normal Examination.
== END 2017-12-01 09:11 | disposition home or self-care (01) ==
LOC: XRAY 09:10
PROVIDERS: ATTEND Internal Medicine
DX: S49.92XA Unspecified injury of left shoulder and upper arm, initial encounter (principal); S39.82XA Other specified injuries of lower back, initial encounter; M19.012 Primary osteoarthritis, left shoulder; S40.012A Contusion of left shoulder, initial encounter; F32.9 Major depressive disorder, single episode, unspecified; F41.9 Anxiety disorder, unspecified; X58.XXXA Exposure to other specified factors, initial encounter; Y93.89 Activity, other specified; Y92.89 Other specified places as the place of occurrence of the external cause; Y99.8 Other external cause status
CPT/HCPCS: 72100

== ENCOUNTER 2017-12-28 10:23 | Emergency (ER) | payer OTHER ==
--- NOTE | 2017-12-28 12:20 | Emergency Department Report ---
ED Extremity Problem HPI - General Chief complaint: Extremity Injury, Lower Stated complaint: BILATERAL FOOT SWELLING Time Seen by Provider: 12/28/17 11:42 Source: patient Mode of arrival: Ambulatory Limitations: No Limitations - History of Present Illness Initial comments: Patient is a 42-year-old [place] Citizen male who is presenting with leg swelling. Patient states for the last week he has had some increased swelling to the bilateral lower extremities. Patient also feels an electric sensation sometimes in his legs. Patient is a diabetic. Patient states he has some mild shortness of breath with exertion with no chest pain. Patient was seen last month for same and started on Lasix states he has some slight improvement but the swelling has started to return. Patient denies any fevers chills nausea vomiting chest pain at this time. - Related Data Home Medications Medication Instructions Recorded Confirmed Last Taken Lisinopril/Hydrochlorothiazide 20 mg PO QDAY 11/27/17 11/27/17 Unknown [Zestoretic 20-25 mg] cloNIDine [Catapres] 0.2 mg PO BID 11/27/17 11/27/17 Unknown Previous Rx's Medication Instructions Recorded Last Taken Type Carvedilol [Coreg] 12.5 mg PO BID #60 tablet 12/03/15 Unknown Rx amLODIPine [Norvasc] 10 mg PO DAILY #30 tablet 12/03/15 Unknown Rx metFORMIN [Glucophage] 500 mg PO BID #60 tablet 08/20/16 Unknown Rx Lisinopril/Hydrochlorothiazide 1 tab PO QDAY #30 tab 11/27/17 Unknown Rx [Zestoretic 20-25 mg] Ondansetron [Zofran Odt] 4 mg PO Q8HR PRN #14 tab.rapdis 11/27/17 Unknown Rx Furosemide [Lasix TAB] 40 mg PO QDAY #10 tablet 12/28/17 Unknown Rx traMADol [Ultram 50 MG tab] 50 mg PO Q4HR PRN #10 tablet 12/28/17 Unknown Rx Allergies Allergy/AdvReac Type Severity Reaction Status Date / Time tomato [Tomato] Allergy Swelling Verified 12/28/17 10:28 ED Review of Systems ROS: Stated complaint: BILATERAL FOOT SWELLING Other details as noted in HPI Comment: All other systems reviewed and negative ED Past Medical Hx - Past Medical History Hx Hypertension: Yes Hx CVA: Yes (MILD LEFT SIDED WEAKNESS) Hx Congestive Heart Failure: No Hx Diabetes: Yes Hx GERD: Yes Hx Headaches / Migraines: Yes Hx Asthma: No Hx COPD: No Additional medical history: sleep apnea. chronic back pain - Surgical History Additional Surgical History: Right upper extremity surgery secondary to trauma, cardiac catheterization - Social History Smoking Status: Never Smoker Substance Use Type: None - Medications Home Medications: Home Medications Medication Instructions Recorded Confirmed Last Taken Type Carvedilol [Coreg] 12.5 mg PO BID #60 tablet 12/03/15 11/27/17 Unknown Rx amLODIPine [Norvasc] 10 mg PO DAILY #30 tablet 12/03/15 11/27/17 Unknown Rx metFORMIN [Glucophage] 500 mg PO BID #60 tablet 08/20/16 11/27/17 Unknown Rx Lisinopril/Hydrochlorothiazide 1 tab PO QDAY #30 tab 11/27/17 Unknown Rx [Zestoretic 20-25 mg] Lisinopril/Hydrochlorothiazide 20 mg PO QDAY 11/27/17 11/27/17 Unknown History [Zestoretic 20-25 mg] Ondansetron [Zofran Odt] 4 mg PO Q8HR PRN #14 tab.rapdis 11/27/17 Unknown Rx cloNIDine [Catapres] 0.2 mg PO BID 11/27/17 11/27/17 Unknown History Furosemide [Lasix TAB] 40 mg PO QDAY #10 tablet 12/28/17 Unknown Rx traMADol [Ultram 50 MG tab] 50 mg PO Q4HR PRN #10 tablet 12/28/17 Unknown Rx ED Physical Exam - General Limitations: No Limitations General appearance: alert, in no apparent distress - Head Head exam: Present: atraumatic, normocephalic - Eye Eye exam: Present: normal appearance - ENT ENT exam: Present: mucous membranes moist - Neck Neck exam: Present: normal inspection - Respiratory Respiratory exam: Present: normal lung sounds bilaterally. Absent: respiratory distress, wheezes, rales, rhonchi - Cardiovascular Cardiovascular Exam: Present: regular rate, normal rhythm. Absent: systolic murmur, diastolic murmur, rubs, gallop - GI/Abdominal GI/Abdominal exam: Present: soft, normal bowel sounds. Absent: distended, tenderness, guarding, rebound - Rectal Rectal exam: Present: deferred - Extremities Exam Extremities exam: Present: normal inspection, full ROM, pedal edema. Absent: tenderness - Back Exam Back exam: Present: normal inspection - Neurological Exam Neurological exam: Present: alert, oriented X3 - Psychiatric Psychiatric exam: Present: normal affect, normal mood - Skin Skin exam: Present: warm, dry, intact, normal color. Absent: rash ED Course Vital Signs 12/28/17 10:28 Temperature 97.9 F Pulse Rate 81 Respiratory 16 Rate Blood Pressure 129/72 O2 Sat by Pulse 96 Oximetry ED Medical Decision Making - Medical Decision Making Lungs clear do not feel as though he has any pulmonary edema at this time. He does not appear to be any distress. Patient does have some dependent edema which be restarted on Lasix 40 mg daily. Patient also was given a primary care physician for follow-up Critical care attestation.: If time is entered above; I have spent that time in minutes in the direct care of this critically ill patient, excluding procedure time. ED Disposition Clinical Impression: Dependent edema Peripheral neuropathy Qualifiers: Peripheral neuropathy type: idiopathic neuropathy, unspecified Qualified Code(s ): G60.9 - Hereditary and idiopathic neuropathy, unspecified Disposition: DC-01 TO HOME OR SELFCARE Is pt being admited?: No Does the pt Need Aspirin: No Condition: Stable Instructions: Peripheral Neuropathy (ED), Leg Edema (ED) Prescriptions: Furosemide [Lasix TAB] 40 mg PO QDAY #10 tablet traMADol [Ultram 50 MG tab] 50 mg PO Q4HR PRN #10 tablet PRN Reason: Pain Referrals: PRIMARY CARE, [Primary Care Provider] - 3-5 Days
[2017-12-28 12:27] VITALS: BP 124/70
== END 2017-12-28 12:26 | disposition home or self-care (01) ==
LOC: ED 10:23
DX: J81.1 Chronic pulmonary edema (principal); G60.9 Hereditary and idiopathic neuropathy, unspecified; I10 Essential (primary) hypertension; E11.9 Type 2 diabetes mellitus without complications; K21.9 Gastro-esophageal reflux disease without esophagitis; G43.909 Migraine, unspecified, not intractable, without status migrainosus; G47.30 Sleep apnea, unspecified; M54.9 Dorsalgia, unspecified; G89.29 Other chronic pain; Z91.018 Allergy to other foods
CPT/HCPCS: 99282

== ENCOUNTER 2018-10-14 12:09 | Emergency (ER) | payer SELFPAY ==
[2018-10-14 12:23] VITALS: BP 109/74
--- NOTE | 2018-10-14 12:40 | Emergency Department Report ---
Chief Complaint: Chest Pain Stated Complaint: CHEST PAIN/ABD PAIN/BACK/HEAD Time Seen by Provider: 10/14/18 12:36 - HPI History of Present Illness: r side cp rad to r neck echo n in normal cath 2012 [facility] htn dm obese cig hpld - Exam Vital Signs: Vital Signs 10/14/18 10/14/18 12:22 12:36 Temperature 97.8 F 97.8 F Pulse Rate 79 18 L Respiratory 16 20 Rate Blood Pressure 109/74 Blood Pressure 109/74 [Right] O2 Sat by Pulse 98 98 Oximetry MSE screening note: Focused history and physical exam performed. Due to findings the following was ordered: ED Disposition for MSE Condition: Stable
[2018-10-14 12:56] LABS: Basophils % (Auto) 0.5 % (0.0-1.8); Eosinophils # (Auto) 0.1 K/mm3 (0.0-0.4); Eosinophils % (Auto) 2.1 % (0.0-4.3); Hematocrit 36.3 % (35.5-45.6); Hemoglobin 12.1 gm/dl (11.8-15.2); Lymphocytes # (Auto) 1.6 K/mm3 (1.2-5.4); Lymphocytes % (Auto) 30.5 % (13.4-35.0); Mean Corpuscular HGB Conc 33 % (32-34); Mean Corpuscular Volume 78 fl (84-94); Monocytes # (Auto) 0.5 K/mm3 (0.0-0.8); Monocytes % (Auto) 8.4 % (0.0-7.3); Platelet Count 334 K/mm3 (140-440); Red Blood Count 4.64 M/mm3 (3.65-5.03); Red Cell Distribution Width 15.6 % (13.2-15.2)
[2018-10-14] MEDS ORDERED: NACL 0.9% 1000 ML 1,000 ML IV ONE (13:09)
[2018-10-14] MEDS ORDERED: BENTYL IM ONE (13:09)
[2018-10-14] MEDS ORDERED: TORADOL IV ONE (13:09)
[2018-10-14] MEDS ORDERED: PEPCID IV ONE (13:09)
[2018-10-14] MEDS ORDERED: ZOFRAN IV ONE (13:09)
--- NOTE | 2018-10-14 13:12 | XRay Report ---
CHEST 2 VIEWS INDICATION: Chest pain. COMPARISON: 03/29/2017. FINDINGS: PA and lateral chest radiographs now demonstrate normal cardiomediastinal silhouette. Clear lungs. Intact bones. CONCLUSION: No acute disease in the chest. Thank you for the opportunity to participate in this patient's care.
[2018-10-14 13:23] LABS: Alanine Aminotransferase 16 units/L (7-56); Albumin 4.3 g/dL (3.9-5); BUN/Creatinine Ratio 13; Blood Urea Nitrogen 17 mg/dL (9-20); Calcium 9.8 mg/dL (8.4-10.2); Hemolysis Index 3
[2018-10-14 13:54] LABS: Bacteria,Urine 2+ /HPF (Negative); Bilirubin,Urine NEG (Negative); Blood,Urine NEG (Negative); Color,Urine Yellow (Yellow); Mucus,Urine FEW /HPF; Protein,Urine <15 mg/dL mg/dL (Negative); Urobilinogen,Urine < 2.0 mg/dL (<2.0)
--- NOTE | 2018-10-14 15:17 | Cat Scan Report ---
CT ABDOMEN AND PELVIS WITH CONTRAST INDICATION: Abdominal pain for one week. Diarrhea, nausea. COMPARISON: None similar. FINDINGS: Abdomen and pelvis CT performed following intravenous administration of 100 cc of Omnipaque 300. LUNG BASES: Slight cardiomegaly. 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 ABDOMEN: Right hepatic lobe approximately 21 cm in midclavicular length. Left hepatic lobe tip also crosses the midline into the left upper quadrant. Otherwise grossly unremarkable unenhanced liver, spleen, gallbladder, pancreas, right adrenal, nonaneurysmal abdominal aorta, IVC and non-hydronephrotic kidneys. A 1.2 cm right interpolar renal cortical cyst, axial image 37, series 4. Subtle 0.8 cm left adrenal apical nodular prominence not excluded, axial image 61, series 2. No ascites or size significant adenopathy with few small, subcentimeter mesenteric and retroperitoneal lymph nodes. Nonopacified GI tract evaluation limited, though grossly nonobstructive. Normal appendix. Tiny fat containing umbilical hernia with a transverse neck of 0.7 cm. PELVIS: Somewhat delayed renal contrast excretion without collecting system or urinary bladder contrast noted approximately 8 minutes post injection. Tiny prostatic calcification with grossly unremarkable seminal vesicles and the rectosigmoid. No free fluid or significant adenopathy. No focal aggressive osseous lesions. CONCLUSION: No definite acute CT abnormality, though various other findings, including somewhat prominent/enlarged liver, delayed renal contrast excretion and distal esophageal prominence/thickening noted, amongst others, as described. Please correlate. Thank you for the opportunity to participate in this patient's care.
--- NOTE | 2018-10-14 15:32 | Emergency Department Report ---
ED Abdominal Pain HPI - General Chief Complaint: Chest Pain Stated Complaint: CHEST PAIN/ABD PAIN/BACK/HEAD Time Seen by Provider: 10/14/18 12:36 Source: patient Mode of arrival: Ambulatory Limitations: No Limitations - History of Present Illness Initial Comments: Patient is a 43-year-old [place] male who is presenting with 1 week of epigastric and chest discomfort. Patient's has some nausea without vomiting. Patient states this burning sharp pain. This is been present for approximately a week. Vision also states that for the past 3 days has some generalized abdominal crampiness with diarrhea as watery and nonbloody. Patient states the diarrhea is new and is has not experienced this in recent months. Patient states that the epigastric discomfort is intermittent he's had had this in the past. Patient denies any fevers chills cough cold congestion at this time. Severity scale (0 -10): 5 - Related Data Home Medications Medication Instructions Recorded Confirmed Last Taken Lisinopril/Hydrochlorothiazide 20 mg PO QDAY 11/27/17 11/27/17 Unknown [Zestoretic 20-25 mg] cloNIDine [Catapres] 0.2 mg PO BID 11/27/17 11/27/17 Unknown Previous Rx's Medication Instructions Recorded Last Taken Type Carvedilol [Coreg] 12.5 mg PO BID #60 tablet 12/03/15 Unknown Rx amLODIPine [Norvasc] 10 mg PO DAILY #30 tablet 12/03/15 Unknown Rx metFORMIN [Glucophage] 500 mg PO BID #60 tablet 08/20/16 Unknown Rx Lisinopril/Hydrochlorothiazide 1 tab PO QDAY #30 tab 11/27/17 Unknown Rx [Zestoretic 20-25 mg] Ondansetron [Zofran Odt] 4 mg PO Q8HR PRN #14 tab.rapdis 11/27/17 Unknown Rx Furosemide [Lasix TAB] 40 mg PO QDAY #10 tablet 12/28/17 Unknown Rx traMADol [Ultram 50 MG tab] 50 mg PO Q4HR PRN #10 tablet 12/28/17 Unknown Rx Amoxicillin/Potassium Clav 1 each PO BID #14 tablet 07/03/18 Unknown Rx [Augmentin 875-125 Tablet] Fluticasone [Flonase] 1 spray NS QDAY #1 bottle 07/03/18 Unknown Rx Ibuprofen [Motrin] 600 mg PO Q8H PRN #20 tablet 07/03/18 Unknown Rx traMADol [Ultram] 50 mg PO Q6HR PRN #10 tablet 07/03/18 Unknown Rx Dicyclomine [Bentyl] 20 mg PO QID #10 tablet 10/14/18 Unknown Rx Diphenoxylate/Atropine [Lomotil] 1 tab PO Q4H PRN #10 tablet 10/14/18 Unknown Rx Famotidine [Pepcid] 40 mg PO QHS #10 tablet 10/14/18 Unknown Rx Ondansetron [Zofran Odt] 4 mg PO Q8HR #10 tab.rapdis 10/14/18 Unknown Rx Pantoprazole [Protonix] 40 mg PO QDAY #30 tablet 10/14/18 Unknown Rx traMADol [Ultram] 50 mg PO Q6HR PRN #12 tablet 10/14/18 Unknown Rx Allergies Allergy/AdvReac Type Severity Reaction Status Date / Time tomato [Tomato] Allergy Swelling Verified 12/28/17 10:28 ED Review of Systems ROS: Stated complaint: CHEST PAIN/ABD PAIN/BACK/HEAD Other details as noted in HPI Comment: All other systems reviewed and negative ED Past Medical Hx - Past Medical History Previous Medical History?: Yes Hx Hypertension: Yes Hx CVA: Yes (MILD LEFT SIDED WEAKNESS) Hx Congestive Heart Failure: No Hx Diabetes: Yes Hx GERD: Yes Hx Headaches / Migraines: Yes Hx Asthma: No Hx COPD: No Additional medical history: sleep apnea. chronic back pain - Surgical History Past Surgical History?: Yes Additional Surgical History: Right upper extremity surgery secondary to trauma, cardiac catheterization - Social History Smoking Status: Never Smoker Substance Use Type: None - Medications Home Medications: Home Medications Medication Instructions Recorded Confirmed Last Taken Type Carvedilol [Coreg] 12.5 mg PO BID #60 tablet 12/03/15 11/27/17 Unknown Rx amLODIPine [Norvasc] 10 mg PO DAILY #30 tablet 12/03/15 11/27/17 Unknown Rx metFORMIN [Glucophage] 500 mg PO BID #60 tablet 08/20/16 11/27/17 Unknown Rx Lisinopril/Hydrochlorothiazide 1 tab PO QDAY #30 tab 11/27/17 Unknown Rx [Zestoretic 20-25 mg] Lisinopril/Hydrochlorothiazide 20 mg PO QDAY 11/27/17 11/27/17 Unknown History [Zestoretic 20-25 mg] Ondansetron [Zofran Odt] 4 mg PO Q8HR PRN #14 tab.rapdis 11/27/17 Unknown Rx cloNIDine [Catapres] 0.2 mg PO BID 11/27/17 11/27/17 Unknown History Furosemide [Lasix TAB] 40 mg PO QDAY #10 tablet 12/28/17 Unknown Rx traMADol [Ultram 50 MG tab] 50 mg PO Q4HR PRN #10 tablet 12/28/17 Unknown Rx Amoxicillin/Potassium Clav 1 each PO BID #14 tablet 07/03/18 Unknown Rx [Augmentin 875-125 Tablet] Fluticasone [Flonase] 1 spray NS QDAY #1 bottle 07/03/18 Unknown Rx Ibuprofen [Motrin] 600 mg PO Q8H PRN #20 tablet 07/03/18 Unknown Rx traMADol [Ultram] 50 mg PO Q6HR PRN #10 tablet 07/03/18 Unknown Rx Dicyclomine [Bentyl] 20 mg PO QID #10 tablet 10/14/18 Unknown Rx Diphenoxylate/Atropine [Lomotil] 1 tab PO Q4H PRN #10 tablet 10/14/18 Unknown Rx Famotidine [Pepcid] 40 mg PO QHS #10 tablet 10/14/18 Unknown Rx Ondansetron [Zofran Odt] 4 mg PO Q8HR #10 tab.rapdis 10/14/18 Unknown Rx Pantoprazole [Protonix] 40 mg PO QDAY #30 tablet 10/14/18 Unknown Rx traMADol [Ultram] 50 mg PO Q6HR PRN #12 tablet 10/14/18 Unknown Rx ED Physical Exam - General Limitations: No Limitations General appearance: alert, in no apparent distress - Head Head exam: Present: atraumatic, normocephalic - Eye Eye exam: Present: normal appearance, PERRL, EOMI - ENT ENT exam: Present: mucous membranes moist - Neck Neck exam: Present: normal inspection - Respiratory Respiratory exam: Present: normal lung sounds bilaterally. Absent: respiratory distress, wheezes, rales, rhonchi, stridor - Cardiovascular Cardiovascular Exam: Present: regular rate, normal rhythm, normal heart sounds. Absent: systolic murmur, diastolic murmur, rubs, gallop - GI/Abdominal GI/Abdominal exam: Present: soft, tenderness (epigastric), normal bowel sounds. Absent: distended, guarding, rebound - Rectal Rectal exam: Present: deferred - Extremities Exam Extremities exam: Present: normal inspection - Back Exam Back exam: Present: normal inspection - Neurological Exam Neurological exam: Present: alert, oriented X3 - Psychiatric Psychiatric exam: Present: normal affect, normal mood - Skin Skin exam: Present: warm, dry, intact, normal color. Absent: rash ED Course Vital Signs 10/14/18 10/14/18 10/14/18 12:22 12:36 13:36 Temperature 97.8 F 97.8 F Pulse Rate 79 18 L Respiratory 16 20 18 Rate Blood Pressure 109/74 Blood Pressure 109/74 [Right] O2 Sat by Pulse 98 98 Oximetry ED Medical Decision Making - Lab Data Result diagrams: 10/14/18 12:43 10/14/18 12:43 Labs 10/14/18 10/14/18 10/14/18 12:43 12:43 12:47 WBC 5.4 RBC 4.64 Hgb 12.1 Hct 36.3 MCV 78 L MCH 26 L MCHC 33 RDW 15.6 H Plt Count 334 Lymph % (Auto) 30.5 Coleman % (Auto) 8.4 H Eos % (Auto) 2.1 Baso % (Auto) 0.5 Lymph # 1.6 Coleman # 0.5 Eos # 0.1 Baso # 0.0 Seg Neutrophils % 58.5 Seg Neutrophils # 3.2 Sodium 132 L Potassium 4.3 Chloride 97.8 L Carbon Dioxide 23 Anion Gap 16 BUN 17 Creatinine 1.3 Estimated GFR > 60 BUN/Creatinine Ratio 13 Glucose 243 H POC Glucose 227 H Calcium 9.8 Total Bilirubin 0.30 AST 14 ALT 16 Alkaline Phosphatase 61 Troponin T < 0.010 Total Protein 7.9 Albumin 4.3 Albumin/Globulin Ratio 1.2 Lipase 49 Urine Color Urine Turbidity Urine pH Ur Specific [place] Urine Protein Urine Glucose (UA) Urine Ketones Urine Blood Urine Nitrite Urine Bilirubin Urine Urobilinogen Ur Leukocyte Esterase Urine WBC (Auto) Urine RBC (Auto) Urine Bacteria (Auto) Urine Mucus 10/14/18 13:33 WBC RBC Hgb Hct MCV MCH MCHC RDW Plt Count Lymph % (Auto) Coleman % (Auto) Eos % (Auto) Baso % (Auto) Lymph # Coleman # Eos # Baso # Seg Neutrophils % Seg Neutrophils # Sodium Potassium Chloride Carbon Dioxide Anion Gap BUN Creatinine Estimated GFR BUN/Creatinine Ratio Glucose POC Glucose Calcium Total Bilirubin AST ALT Alkaline Phosphatase Troponin T Total Protein Albumin Albumin/Globulin Ratio Lipase Urine Color Yellow Urine Turbidity Slightly-cloudy Urine pH 5.0 Ur Specific [place] 1.015 Urine Protein <15 mg/dl Urine Glucose (UA) >=500 Urine Ketones Neg Urine Blood Neg Urine Nitrite Neg Urine Bilirubin Neg Urine Urobilinogen < 2.0 Ur Leukocyte Esterase Neg Urine WBC (Auto) 4.0 Urine RBC (Auto) 3.0 Urine Bacteria (Auto) 2+ Urine Mucus Few - EKG Data -: EKG Interpreted by Tn EKG shows normal: sinus rhythm, axis, intervals, QRS complexes, ST-T waves Rate: normal - EKG Data Interpretation: normal EKG - Radiology Data [facility] [address] [place] [address] Cat Scan Report Signed Patient: LIZZIE FRASER MR#: [id number] : 1975 Acct:[id number] Age/Sex: 43 / M ADM Date: 10/14/18 Loc: ED Attending Dr: Ordering Physician: JASS HEARN MD Date of Service: 10/14/18 Procedure(s): CT abdomen pelvis w con Accession Number(s): [id number] cc: JASS HEARN MD CT ABDOMEN AND PELVIS WITH CONTRAST INDICATION: Abdominal pain for one week. Diarrhea, nausea. COMPARISON: None similar. FINDINGS: Abdomen and pelvis CT performed following intravenous administration of 100 cc of Omnipaque 300. LUNG BASES: Slight cardiomegaly. 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 ABDOMEN: Right hepatic lobe approximately 21 cm in midclavicular length. Left hepatic lobe tip also crosses the midline into the left upper quadrant. Otherwise grossly unremarkable unenhanced liver, spleen, gallbladder, pancreas, right adrenal, nonaneurysmal abdominal aorta, IVC and non-hydronephrotic kidneys. A 1.2 cm right interpolar renal cortical cyst, axial image 37, series 4. Subtle 0.8 cm left adrenal apical nodular prominence not excluded, axial image 61, series 2. No ascites or size significant adenopathy with few small, subcentimeter mesenteric and retroperitoneal lymph nodes. Nonopacified GI tract evaluation limited, though grossly nonobstructive. Normal appendix. Tiny fat containing umbilical hernia with a transverse neck of 0.7 cm. PELVIS: Somewhat delayed renal contrast excretion without collecting system or urinary bladder contrast noted approximately 8 minutes post injection. Tiny prostatic calcification with grossly unremarkable seminal vesicles and the rectosigmoid. No free fluid or significant adenopathy. No focal aggressive osseous lesions. CONCLUSION: No definite acute CT abnormality, though various other findings, including somewhat prominent/enlarged liver, delayed renal contrast excretion and distal esophageal prominence/thickening noted, amongst others, as described. Please correlate. Thank you for the opportunity to participate in this patient's care. Transcribed By: RS Dictated By: INDERJIT COSTA MD Electronically Authenticated By: INDERJIT COSTA MD Signed Date/Time: 10/14/181515 DD/ 03 TD/TT: 10/14/181515 - Medical Decision Making Patient likely with GERD secondary to a hiatal hernia. Patient also likely with a viral Critical care attestation.: If time is entered above; I have spent that time in minutes in the direct care of this critically ill patient, excluding procedure time. ED Disposition Clinical Impression: GERD (gastroesophageal reflux disease), Hiatal hernia, Viral enteritis Disposition: - TO HOME OR SELFCARE Is pt being admited?: No Does the pt Need Aspirin: No Condition: Stable Instructions: Hiatal Hernia (ED), Diet for Ulcers and Gastritis (ED), Gastroesophageal Reflux Disease (ED), Gastroenteritis (ED) Referrals: HOLLY COLLINS MD [Primary Care Provider] - 3-5 Days [facility] [Provider Group] - 3-5 Days Time of Disposition: 15:50
== END 2018-10-14 16:00 | disposition home or self-care (01) ==
LOC: ED 12:09
DX: K21.9 Gastro-esophageal reflux disease without esophagitis (principal); A08.4 Viral intestinal infection, unspecified; K44.9 Diaphragmatic hernia without obstruction or gangrene; I10 Essential (primary) hypertension; E11.9 Type 2 diabetes mellitus without complications; G43.909 Migraine, unspecified, not intractable, without status migrainosus
CPT/HCPCS: 36415; 71046; 74177; 80053; 81001; 82962; 83690; 84484; 85025; 93005; 93010; 96372; 96374; 96375; 99284; J0500; J1885; J2405; J7030; Q9967

== ENCOUNTER 2018-10-22 12:02 | Emergency (ER) | payer OTHER ==
[2018-10-22 12:09] VITALS: BP 131/95
--- NOTE | 2018-10-22 12:20 | Emergency Department Report ---
Blank Doc - Documentation Documentation: 43 yo male presents to ED cc of right flank and gen abd pain with watery diarhea states diarrhea resolved now. noted small blood in stool labs, CT scan was obtained on the 5th at last visit
[2018-10-22 12:38] LABS: Basophils % (Auto) 0.8 % (0.0-1.8); Eosinophils # (Auto) 0.1 K/mm3 (0.0-0.4); Eosinophils % (Auto) 1.9 % (0.0-4.3); Hematocrit 39.2 % (35.5-45.6); Hemoglobin 13.1 gm/dl (11.8-15.2); Lymphocytes # (Auto) 1.6 K/mm3 (1.2-5.4); Lymphocytes % (Auto) 28.5 % (13.4-35.0); Mean Corpuscular HGB Conc 33 % (32-34); Mean Corpuscular Volume 78 fl (84-94); Monocytes # (Auto) 0.5 K/mm3 (0.0-0.8); Monocytes % (Auto) 9.1 % (0.0-7.3); Platelet Count 353 K/mm3 (140-440); Red Blood Count 5.03 M/mm3 (3.65-5.03); Red Cell Distribution Width 15.2 % (13.2-15.2)
[2018-10-22 12:58] LABS: BUN/Creatinine Ratio 19; Blood Urea Nitrogen 26 mg/dL (9-20); Calcium 9.7 mg/dL (8.4-10.2); Hemolysis Index 16
--- NOTE | 2018-10-22 13:16 | Emergency Department Report ---
ED General Adult HPI - General Chief complaint: Abdominal Pain Stated complaint: ABD CHEST PAIN/BLOOD IN STOOL/BACK PAIN Time Seen by Provider: 10/22/18 12:15 Source: patient Mode of arrival: Ambulatory Limitations: No Limitations - History of Present Illness Initial comments: Mr. Robin is a 43-year-old male with history of type 2 diabetes, obesity, c hronic back pain, GERD, hiatal hernia, hypertension presents with diffuse pain in the chest back and abdomen for several weeks. Prescribed Protonix and Ultram by my colleague on October 14. Has follow-up at [facility]. Has a has bright red blood per rectum. Has had normal appetite. Denies fever. Denies vomiting. Mild diffuse pain for several weeks. -: Gradual, week(s) (3) Location: chest, abdomen Severity scale (0 -10): 10 Consistency: constant Improves with: none Worsens with: none - Related Data Home Medications Medication Instructions Recorded Confirmed Last Taken Lisinopril/Hydrochlorothiazide 20 mg PO QDAY 11/27/17 11/27/17 Unknown [Zestoretic 20-25 mg] cloNIDine [Catapres] 0.2 mg PO BID 11/27/17 11/27/17 Unknown Previous Rx's Medication Instructions Recorded Last Taken Type Carvedilol [Coreg] 12.5 mg PO BID #60 tablet 12/03/15 Unknown Rx amLODIPine [Norvasc] 10 mg PO DAILY #30 tablet 12/03/15 Unknown Rx metFORMIN [Glucophage] 500 mg PO BID #60 tablet 08/20/16 Unknown Rx Lisinopril/Hydrochlorothiazide 1 tab PO QDAY #30 tab 11/27/17 Unknown Rx [Zestoretic 20-25 mg] Ondansetron [Zofran Odt] 4 mg PO Q8HR PRN #14 tab.rapdis 11/27/17 Unknown Rx Furosemide [Lasix TAB] 40 mg PO QDAY #10 tablet 12/28/17 Unknown Rx traMADol [Ultram 50 MG tab] 50 mg PO Q4HR PRN #10 tablet 12/28/17 Unknown Rx Amoxicillin/Potassium Clav 1 each PO BID #14 tablet 07/03/18 Unknown Rx [Augmentin 875-125 Tablet] Fluticasone [Flonase] 1 spray NS QDAY #1 bottle 07/03/18 Unknown Rx Ibuprofen [Motrin] 600 mg PO Q8H PRN #20 tablet 07/03/18 Unknown Rx traMADol [Ultram] 50 mg PO Q6HR PRN #10 tablet 07/03/18 Unknown Rx Dicyclomine [Bentyl] 20 mg PO QID #10 tablet 10/14/18 Unknown Rx Diphenoxylate/Atropine [Lomotil] 1 tab PO Q4H PRN #10 tablet 10/14/18 Unknown Rx Famotidine [Pepcid] 40 mg PO QHS #10 tablet 10/14/18 Unknown Rx Ondansetron [Zofran Odt] 4 mg PO Q8HR #10 tab.rapdis 10/14/18 Unknown Rx Pantoprazole [Protonix] 40 mg PO QDAY #30 tablet 10/14/18 Unknown Rx traMADol [Ultram] 50 mg PO Q6HR PRN #12 tablet 10/14/18 Unknown Rx Allergies Allergy/AdvReac Type Severity Reaction Status Date / Time tomato [Tomato] Allergy Swelling Verified 10/22/18 12:03 ED Review of Systems ROS: Stated complaint: ABD CHEST PAIN/BLOOD IN STOOL/BACK PAIN Other details as noted in HPI Comment: All other systems reviewed and negative Constitutional: denies: fever, malaise Cardiovascular: chest pain Gastrointestinal: abdominal pain ED Past Medical Hx - Past Medical History Previous Medical History?: Yes Hx Hypertension: Yes Hx CVA: Yes Hx Congestive Heart Failure: No Hx Diabetes: Yes Hx GERD: Yes Hx Headaches / Migraines: Yes Hx Asthma: No Hx COPD: No Additional medical history: sleep apnea. chronic back pain - Surgical History Additional Surgical History: Right upper extremity surgery secondary to trauma, cardiac catheterization - Social History Smoking Status: Never Smoker Substance Use Type: None - Medications Home Medications: Home Medications Medication Instructions Recorded Confirmed Last Taken Type Carvedilol [Coreg] 12.5 mg PO BID #60 tablet 12/03/15 11/27/17 Unknown Rx amLODIPine [Norvasc] 10 mg PO DAILY #30 tablet 12/03/15 11/27/17 Unknown Rx metFORMIN [Glucophage] 500 mg PO BID #60 tablet 08/20/16 11/27/17 Unknown Rx Lisinopril/Hydrochlorothiazide 1 tab PO QDAY #30 tab 11/27/17 Unknown Rx [Zestoretic 20-25 mg] Lisinopril/Hydrochlorothiazide 20 mg PO QDAY 11/27/17 11/27/17 Unknown History [Zestoretic 20-25 mg] Ondansetron [Zofran Odt] 4 mg PO Q8HR PRN #14 tab.rapdis 11/27/17 Unknown Rx cloNIDine [Catapres] 0.2 mg PO BID 11/27/17 11/27/17 Unknown History Furosemide [Lasix TAB] 40 mg PO QDAY #10 tablet 12/28/17 Unknown Rx traMADol [Ultram 50 MG tab] 50 mg PO Q4HR PRN #10 tablet 12/28/17 Unknown Rx Amoxicillin/Potassium Clav 1 each PO BID #14 tablet 07/03/18 Unknown Rx [Augmentin 875-125 Tablet] Fluticasone [Flonase] 1 spray NS QDAY #1 bottle 07/03/18 Unknown Rx Ibuprofen [Motrin] 600 mg PO Q8H PRN #20 tablet 07/03/18 Unknown Rx traMADol [Ultram] 50 mg PO Q6HR PRN #10 tablet 07/03/18 Unknown Rx Dicyclomine [Bentyl] 20 mg PO QID #10 tablet 10/14/18 Unknown Rx Diphenoxylate/Atropine [Lomotil] 1 tab PO Q4H PRN #10 tablet 10/14/18 Unknown Rx Famotidine [Pepcid] 40 mg PO QHS #10 tablet 10/14/18 Unknown Rx Ondansetron [Zofran Odt] 4 mg PO Q8HR #10 tab.rapdis 10/14/18 Unknown Rx Pantoprazole [Protonix] 40 mg PO QDAY #30 tablet 10/14/18 Unknown Rx traMADol [Ultram] 50 mg PO Q6HR PRN #12 tablet 10/14/18 Unknown Rx ED Physical Exam - General Limitations: No Limitations General appearance: alert, in no apparent distress - Head Head exam: Present: atraumatic, normocephalic - Eye Eye exam: Present: normal appearance - ENT ENT exam: Present: mucous membranes moist - Neck Neck exam: Present: normal inspection, full ROM - Respiratory Respiratory exam: Present: normal lung sounds bilaterally. Absent: respiratory distress, wheezes, rales, rhonchi - Cardiovascular Cardiovascular Exam: Present: regular rate, normal rhythm, normal heart sounds. Absent: systolic murmur, diastolic murmur, rubs, gallop - GI/Abdominal GI/Abdominal exam: Present: soft, normal bowel sounds. Absent: distended, tenderness, guarding, rebound - Rectal Rectal exam: Present: deferred - Extremities Exam Extremities exam: Present: normal inspection - Back Exam Back exam: Present: normal inspection - Neurological Exam Neurological exam: Present: alert, oriented X3 - Psychiatric Psychiatric exam: Present: normal affect, normal mood - Skin Skin exam: Present: warm, dry, intact, normal color. Absent: rash ED Course Vital Signs 10/22/18 12:07 Temperature 98.1 F Pulse Rate 118 H Respiratory 18 Rate Blood Pressure 131/95 O2 Sat by Pulse 94 Oximetry ED Medical Decision Making - Lab Data Result diagrams: 10/22/18 12:31 10/22/18 12:31 Laboratory Results - last 24 hr 10/22/18 10/22/18 12:31 12:31 WBC 5.6 RBC 5.03 Hgb 13.1 Hct 39.2 MCV 78 L MCH 26 L MCHC 33 RDW 15.2 Plt Count 353 Lymph % (Auto) 28.5 Hendricks % (Auto) 9.1 H Eos % (Auto) 1.9 Baso % (Auto) 0.8 Lymph # 1.6 Hendricks # 0.5 Eos # 0.1 Baso # 0.0 Seg Neutrophils % 59.7 Seg Neutrophils # 3.4 Sodium 137 Potassium 4.7 Chloride 99.1 Carbon Dioxide 20 L Anion Gap 23 BUN 26 H Creatinine 1.4 Estimated GFR > 60 BUN/Creatinine Ratio 19 Glucose 184 H Calcium 9.7 - Medical Decision Making Mr. Robin presents with diffuse pain in the chest abdomen back rectal bleeding for several weeks. CBC chemistry within normal limits. No evidence of acute emergent illness. I do not suspect peritonitis nor acute coronary syndrome. No persistent chest pain to suggest PE. Given reassurance. Strongly recommended close follow-up at outside clinic to which he was referred. Has appointment in 4 days. Critical care attestation.: If time is entered above; I have spent that time in minutes in the direct care of this critically ill patient, excluding procedure time. ED Disposition Clinical Impression: Chest pain, Chronic back pain, GERD (gastroesophageal reflux disease), Hiatal hernia Disposition: TO HOME OR SELFCARE Is pt being admited?: No Does the pt Need Aspirin: No Condition: Stable Instructions: Chest Pain (ED) Referrals: [facility] [Outside] - 3-5 Days
[2018-10-22 13:26] LABS: Bacteria,Urine 1+ /HPF (Negative); Bilirubin,Urine NEG (Negative); Blood,Urine SM (Negative); Color,Urine Yellow (Yellow); Urobilinogen,Urine < 2.0 mg/dL (<2.0)
== END 2018-10-22 13:43 | disposition home or self-care (01) ==
LOC: ED 12:02
DX: K21.9 Gastro-esophageal reflux disease without esophagitis (principal); K44.9 Diaphragmatic hernia without obstruction or gangrene; G89.29 Other chronic pain; M54.9 Dorsalgia, unspecified; I10 Essential (primary) hypertension; E11.9 Type 2 diabetes mellitus without complications; G43.909 Migraine, unspecified, not intractable, without status migrainosus; Z86.73 Personal history of transient ischemic attack (TIA), and cerebral infarction without residual deficits; Z91.018 Allergy to other foods; Z79.84 Long term (current) use of oral hypoglycemic drugs
CPT/HCPCS: 36415; 80048; 81001; 85025

== ENCOUNTER 2019-01-02 14:40 | Emergency (ER) | payer SELFPAY ==
[2019-01-02 15:06] VITALS: BP 129/73
--- NOTE | 2019-01-02 15:08 | Event Note ---
ED Screening Note Date of service: 01/02/19 Time: 15:04 ED Screening Note: 43 y/o male here for multiple complaints of left middle finger, hernia pain, blood in stool. This initial assessment/diagnostic orders/clinical plan/treatment(s) is/are subject to change based on patients health status, clinical progression and re- assessment by fellow clinical providers in the ED. Further treatment and workup at subsequent clinical providers discretion. Patient/guardian urged not to elope from the ED as their condition may be serious if not clinically assessed and managed. Initial orders include:
[2019-01-02 15:22] LABS: Basophils % (Auto) 0.4 % (0.0-1.8); Eosinophils # (Auto) 0.1 K/mm3 (0.0-0.4); Eosinophils % (Auto) 1.7 % (0.0-4.3); Hematocrit 35.1 % (35.5-45.6); Hemoglobin 11.6 gm/dl (11.8-15.2); Lymphocytes # (Auto) 1.6 K/mm3 (1.2-5.4); Lymphocytes % (Auto) 24.3 % (13.4-35.0); Mean Corpuscular HGB Conc 33 % (32-34); Mean Corpuscular Volume 77 fl (84-94); Monocytes # (Auto) 0.6 K/mm3 (0.0-0.8); Monocytes % (Auto) 8.7 % (0.0-7.3); Platelet Count 282 K/mm3 (140-440); Red Blood Count 4.56 M/mm3 (3.65-5.03)
[2019-01-02 15:46] LABS: Albumin 4.2 g/dL (3.9-5); Calcium 9.8 mg/dL (8.4-10.2)
[2019-01-02] MEDS ORDERED: LIDOCAINE VISCOUS 2% PO ONE (17:26)
[2019-01-02] MEDS ORDERED: ALUM-MAG HYDROX-SIMETH 200-200-20MG/5ML PO ONE (17:26)
[2019-01-02] MEDS ORDERED: NACL 0.9% 1000 ML 1,000 ML IV ONE (17:26)
[2019-01-02] MEDS ORDERED: BENTYL IM ONE (17:26)
--- NOTE | 2019-01-02 17:50 | Emergency Department Report ---
ED General Adult HPI - General Chief complaint: Abdominal Pain Stated complaint: POSS HERNIA/FEVER PAIN Time Seen by Provider: 01/02/19 17:11 Source: patient Mode of arrival: Ambulatory Limitations: No Limitations - History of Present Illness Initial comments: Patient is a 43-year-old male who presents to the emergency Department with complaints of periumbilical abdominal discomfort for the last month. He has associated nausea and a couple episodes of diarrhea. He states he has a small amount of blood when he wipes from the rectum. He denies any vomiting. He denies any fever. He has never had a colonoscopy. He has been evaluated in the emergency department for these complaints and been evaluated by [facility] for these complaints.. On his last CT abd pelvis in October he has a very small fat filled umbilical hernia, otherwise normal CT abd/pelvis. He states he has not had his medications for acid reflux for the last week. He states he believes his symptoms are related to his acid reflux and hernia. He denies any history of hemorrhoids. He has a past medical history of diabetes and hypertension. He states he is on metformin and has had diarrhea from metformin in the past. He denies any allergies to medications. He also presents for right middle finger swelling for the last 3 days. He states that it is surrounding his nail. He has never had this before. - Related Data Home Medications Medication Instructions Recorded Confirmed Last Taken Lisinopril/Hydrochlorothiazide 20 mg PO QDAY 11/27/17 11/27/17 Unknown [Zestoretic 20-25 mg] cloNIDine [Catapres] 0.2 mg PO BID 11/27/17 11/27/17 Unknown Previous Rx's Medication Instructions Recorded Last Taken Type Carvedilol [Coreg] 12.5 mg PO BID #60 tablet 12/03/15 Unknown Rx amLODIPine [Norvasc] 10 mg PO DAILY #30 tablet 12/03/15 Unknown Rx metFORMIN [Glucophage] 500 mg PO BID #60 tablet 08/20/16 Unknown Rx Lisinopril/Hydrochlorothiazide 1 tab PO QDAY #30 tab 11/27/17 Unknown Rx [Zestoretic 20-25 mg] Ondansetron [Zofran Odt] 4 mg PO Q8HR PRN #14 tab.rapdis 11/27/17 Unknown Rx Furosemide [Lasix TAB] 40 mg PO QDAY #10 tablet 12/28/17 Unknown Rx traMADol [Ultram 50 MG tab] 50 mg PO Q4HR PRN #10 tablet 12/28/17 Unknown Rx Amoxicillin/Potassium Clav 1 each PO BID #14 tablet 07/03/18 Unknown Rx [Augmentin 875-125 Tablet] Fluticasone [Flonase] 1 spray NS QDAY #1 bottle 07/03/18 Unknown Rx Ibuprofen [Motrin] 600 mg PO Q8H PRN #20 tablet 07/03/18 Unknown Rx traMADol [Ultram] 50 mg PO Q6HR PRN #10 tablet 07/03/18 Unknown Rx Diphenoxylate/Atropine [Lomotil] 1 tab PO Q4H PRN #10 tablet 10/14/18 Unknown Rx Ondansetron [Zofran Odt] 4 mg PO Q8HR #10 tab.rapdis 10/14/18 Unknown Rx Pantoprazole [Protonix] 40 mg PO QDAY #30 tablet 10/14/18 Unknown Rx traMADol [Ultram] 50 mg PO Q6HR PRN #12 tablet 10/14/18 Unknown Rx Dicyclomine [Bentyl] 20 mg PO QID PRN #20 tablet 01/02/19 Unknown Rx Famotidine [Pepcid] 40 mg PO QHS #30 tablet 01/02/19 Unknown Rx Sucralfate [Carafate] 1 gm PO Q6HR #5 tablet 01/02/19 Unknown Rx cephALEXin [Keflex] 500 mg PO QID 7 Days #28 capsule 01/02/19 Unknown Rx Allergies Allergy/AdvReac Type Severity Reaction Status Date / Time tomato [Tomato] Allergy Swelling Verified 10/22/18 12:03 ED Review of Systems ROS: Stated complaint: POSS HERNIA/FEVER PAIN Other details as noted in HPI Comment: All other systems reviewed and negative ED Past Medical Hx - Past Medical History Previous Medical History?: Yes Hx Hypertension: Yes Hx CVA: Yes Hx Congestive Heart Failure: No Hx Diabetes: Yes Hx GERD: Yes Hx Headaches / Migraines: Yes Hx Asthma: No Hx COPD: No Additional medical history: sleep apnea, hiatal hernia. chronic back pain - Surgical History Past Surgical History?: Yes Additional Surgical History: Right upper extremity surgery secondary to trauma, cardiac catheterization - Social History Smoking Status: Never Smoker Substance Use Type: None - Medications Home Medications: Home Medications Medication Instructions Recorded Confirmed Last Taken Type Carvedilol [Coreg] 12.5 mg PO BID #60 tablet 12/03/15 11/27/17 Unknown Rx amLODIPine [Norvasc] 10 mg PO DAILY #30 tablet 12/03/15 11/27/17 Unknown Rx metFORMIN [Glucophage] 500 mg PO BID #60 tablet 08/20/16 11/27/17 Unknown Rx Lisinopril/Hydrochlorothiazide 1 tab PO QDAY #30 tab 11/27/17 Unknown Rx [Zestoretic 20-25 mg] Lisinopril/Hydrochlorothiazide 20 mg PO QDAY 11/27/17 11/27/17 Unknown History [Zestoretic 20-25 mg] Ondansetron [Zofran Odt] 4 mg PO Q8HR PRN #14 tab.rapdis 11/27/17 Unknown Rx cloNIDine [Catapres] 0.2 mg PO BID 11/27/17 11/27/17 Unknown History Furosemide [Lasix TAB] 40 mg PO QDAY #10 tablet 12/28/17 Unknown Rx traMADol [Ultram 50 MG tab] 50 mg PO Q4HR PRN #10 tablet 12/28/17 Unknown Rx Amoxicillin/Potassium Clav 1 each PO BID #14 tablet 07/03/18 Unknown Rx [Augmentin 875-125 Tablet] Fluticasone [Flonase] 1 spray NS QDAY #1 bottle 07/03/18 Unknown Rx Ibuprofen [Motrin] 600 mg PO Q8H PRN #20 tablet 07/03/18 Unknown Rx traMADol [Ultram] 50 mg PO Q6HR PRN #10 tablet 07/03/18 Unknown Rx Diphenoxylate/Atropine [Lomotil] 1 tab PO Q4H PRN #10 tablet 10/14/18 Unknown Rx Ondansetron [Zofran Odt] 4 mg PO Q8HR #10 tab.rapdis 10/14/18 Unknown Rx Pantoprazole [Protonix] 40 mg PO QDAY #30 tablet 10/14/18 Unknown Rx traMADol [Ultram] 50 mg PO Q6HR PRN #12 tablet 10/14/18 Unknown Rx Dicyclomine [Bentyl] 20 mg PO QID PRN #20 tablet 01/02/19 Unknown Rx Famotidine [Pepcid] 40 mg PO QHS #30 tablet 01/02/19 Unknown Rx Sucralfate [Carafate] 1 gm PO Q6HR #5 tablet 01/02/19 Unknown Rx cephALEXin [Keflex] 500 mg PO QID 7 Days #28 capsule 01/02/19 Unknown Rx ED Physical Exam - General Limitations: No Limitations General appearance: alert, in no apparent distress - Head Head exam: Present: atraumatic, normocephalic - Eye Eye exam: Present: normal appearance, PERRL - ENT ENT exam: Present: mucous membranes moist - Respiratory Respiratory exam: Present: normal lung sounds bilaterally. Absent: respiratory distress, wheezes, rales, rhonchi, stridor, chest wall tenderness, accessory muscle use, decreased breath sounds, prolonged expiratory - Cardiovascular Cardiovascular Exam: Present: regular rate, normal rhythm, normal heart sounds. Absent: systolic murmur, diastolic murmur, rubs, gallop - GI/Abdominal GI/Abdominal exam: Present: soft, normal bowel sounds. Absent: distended, tenderness, guarding, rebound, rigid, hernia - Rectal Rectal exam: Present: normal inspection, normal rectal tone, heme (-) stool, other (hand sign writer: Thanh, RN, brown stool on exam, no external or internal hemorrhoids, no anal fissure, no gross blood). Absent: hemorrhoids, mass, tenderness - Neurological Exam Neurological exam: Present: alert, oriented X3 - Psychiatric Psychiatric exam: Present: normal affect, normal mood - Skin Skin exam: Present: warm, dry, other (small area of fluctuance to the left side of the left middle finger, no surrounding erythema, no nail invovlement) ED Course Vital Signs 01/02/19 01/02/19 15:03 21:55 Temperature 98.3 F Pulse Rate 109 H 74 Respiratory 18 17 Rate Blood Pressure 129/73 O2 Sat by Pulse 100 100 Oximetry - I & D Left Finger Type of Procedure: Simple Site: small area of fluctuance to the left side of the left middle finger Blade Size: 11 I & D Procedure: betadine prep, sterile drapes applied, sterile dressing applied Progress: right middle finger cleaned with betadine, 3 cc of 2% lidocaine used for digital block, 0.5 cm incision made with 11 blade and small amount of purulent drainage expressed, irrigated with 20 cc of saline, bleeding well controlled, pt tolerated well, sterile dressing applied ED Medical Decision Making - Lab Data Result diagrams: 01/02/19 15:07 01/02/19 15:07 Lab Results 01/02/19 01/02/19 Range/Units 15:07 15:07 WBC 6.5 (4.5-11.0) K/mm3 RBC 4.56 (3.65-5.03) M/mm3 Hgb 11.6 L (11.8-15.2) gm/dl Hct 35.1 L (35.5-45.6) % MCV 77 L (84-94) fl MCH 26 L (28-32) pg MCHC 33 (32-34) % RDW 16.0 H (13.2-15.2) % Plt Count 282 (140-440) K/mm3 Lymph % (Auto) 24.3 (13.4-35.0) % Chambers % (Auto) 8.7 H (0.0-7.3) % Eos % (Auto) 1.7 (0.0-4.3) % Baso % (Auto) 0.4 (0.0-1.8) % Lymph # 1.6 (1.2-5.4) K/mm3 Chambers # 0.6 (0.0-0.8) K/mm3 Eos # 0.1 (0.0-0.4) K/mm3 Baso # 0.0 (0.0-0.1) K/mm3 Seg Neutrophils % 64.9 (40.0-70.0) % Seg Neutrophils # 4.2 (1.8-7.7) K/mm3 Sodium 134 L (137-145) mmol/L Potassium 4.6 (3.6-5.0) mmol/L Chloride 95.4 L (98-107) mmol/L Carbon Dioxide 21 L (22-30) mmol/L Anion Gap 22 mmol/L BUN 24 H (9-20) mg/dL Creatinine 1.6 H (0.8-1.5) mg/dL Estimated GFR 57 ml/min BUN/Creatinine Ratio 15 % Glucose 277 H (75-100) mg/dL Calcium 9.8 (8.4-10.2) mg/dL Total Bilirubin 0.40 (0.1-1.2) mg/dL AST 16 (5-40) units/L ALT 17 (7-56) units/L Alkaline Phosphatase 79 (35-129) units/L Total Protein 8.1 (6.3-8.2) g/dL Albumin 4.2 (3.9-5) g/dL Albumin/Globulin Ratio 1.1 % - Radiology Data Radiology results: report reviewed PROCEDURE: XR ABDOMEN 2V TECHNIQUE: Abdomen supine and upright HISTORY: abd discomfort COMPARISONS: FINDINGS: No abnormal calcifications are identified. No evidence for colonic or small bowel distention. There are no signs for free air. No acute skeletal findings IMPRESSION: Nonobstructive bowel gas pattern. No acute abnormality identified. This document is electronically signed by Mario Godinez MD., January 02 2019 06:20:19 PM ET Transcribed By: TEGAN Dictated By: ZEB GODIENZ MD Electronically Authenticated By: ZEB GODINEZ MD Signed Date/Time: 01/02/19 182 - Medical Decision Making Patient is a 43-year-old male who presents to the emergency Department with complaints of periumbilical abdominal discomfort for the last month. He has associated nausea and a couple episodes of diarrhea. He states he has a small amount of blood when he wipes from the rectum. He denies any vomiting. He denies any fever. He has never had a colonoscopy. He has been evaluated in the emergency department for these complaints and been evaluated by [facility] for these complaints.. On his last CT abd pelvis in October he has a very small fat filled umbilical hernia, otherwise normal CT abd/pelvis. He states he has not had his medications for acid reflux for the last week. He states he believes his symptoms are related to his acid reflux and hernia. He denies any history of hemorrhoids. He has a past medical history of diabetes and hyperte nsion. He states he is on metformin and has had diarrhea from metformin in the past. He denies any allergies to medications. He also presents for right middle finger swelling for the last 3 days. He states that it is surrounding his nail. He has never had this before. vitals are stable. no abd tenderness on exam. on skin exam small paronychia present to the left middle finger, I&D peformed per procedure note, advised to keep clean and dry, may wash with soap and water and immediately dry, placed on keflex to cover for skin infection due to DM. labs with no leukocytosis, no anemia, elevated BG at 277, hx of DM, mild PATSY with mild dehydration. pt given a 1L of normal saline and medications while in the ED, symptoms improved. XR of the abdomen with no acute process. hemoocult of the stool is negative, normal rectal exam, H/H are normal, will have pt follow up with GI. pt given pepcid, carafate, and bentyl. advised to please take all medication as prescribed. Please drink plenty of water. Follow up with a primary care doctor in next 2-3 days. Follow-up with a GI doctor in the next 2- 3 days. Return to the emergency room for any new or worsening symptoms. Please keep area clean and dry. Wash with soap and water and immediately dry. - Differential Diagnosis GERD, SBO, gastritis, PUD, hernia Critical care attestation.: If time is entered above; I have spent that time in minutes in the direct care of this critically ill patient, excluding procedure time. ED Disposition Clinical Impression: Paronychia, Rectal bleeding, Encounter for incision and drainage procedure Abdominal pain Qualifiers: Abdominal location: generalized Qualified Code(s): R10.84 - Generalized abdominal pain Diarrhea Qualifiers: Diarrhea type: unspecified type Qualified Code(s): R19.7 - Diarrhea, unspecified Disposition: - TO HOME OR SELFCARE Is pt being admited?: No Does the pt Need Aspirin: No Condition: Stable Instructions: Paronychia (ED), Abdominal Pain (ED), Incision and Drainage (ED) Additional Instructions: Please take all medication as prescribed. Please drink plenty of water. Follow up with a primary care doctor in next 2-3 days. Follow-up with a GI doctor in the next 2-3 days. Return to the emergency room for any new or worsening symptoms. Please keep area clean and dry. Wash with soap and water and immediately dry. Prescriptions: Famotidine [Pepcid] 40 mg PO QHS #30 tablet Dicyclomine [Bentyl] 20 mg PO QID PRN #20 tablet PRN Reason: pain Sucralfate [Carafate] 1 gm PO Q6HR #5 tablet cephALEXin [Keflex] 500 mg PO QID 7 Days #28 capsule Referrals: HOLLY COLLINS MD [Primary Care Provider] - 2-3 Days [facility] [Provider Group] - 2-3 Days [facility] [Provider Group] - 2-3 Days Forms: Accompanied Note, Work/School Release Form(ED) Time of Disposition: 21:34 Print Language: PANAMANIAN
--- NOTE | 2019-01-02 18:22 | XRay Report ---
PROCEDURE: XR ABDOMEN 2V TECHNIQUE: Abdomen supine and upright HISTORY: abd discomfort COMPARISONS: FINDINGS: No abnormal calcifications are identified. No evidence for colonic or small bowel distention. There are no signs for free air. No acute skeletal findings IMPRESSION: Nonobstructive bowel gas pattern. No acute abnormality identified. This document is electronically signed by Mario Mccord MD., January 02 2019 06:20:19 PM ET
[2019-01-02] MEDS ORDERED: XYLOCAINE 2% INFILTRATI ONE (21:40)
== END 2019-01-02 21:55 | disposition home or self-care (01) ==
LOC: ED 14:40
DX: L03.012 Cellulitis of left finger (principal); R10.84 Generalized abdominal pain; K62.5 Hemorrhage of anus and rectum; R19.7 Diarrhea, unspecified; G89.29 Other chronic pain; I10 Essential (primary) hypertension; E11.9 Type 2 diabetes mellitus without complications; K21.9 Gastro-esophageal reflux disease without esophagitis; G43.909 Migraine, unspecified, not intractable, without status migrainosus; Z86.73 Personal history of transient ischemic attack (TIA), and cerebral infarction without residual deficits; Z79.84 Long term (current) use of oral hypoglycemic drugs; Z91.018 Allergy to other foods
CPT/HCPCS: 10060; 36415; 74019; 80053; 82271; 85025; 96372; 99283; J0500; J7030

== ENCOUNTER 2019-01-30 11:03 | Emergency (ER) | payer SELFPAY ==
[2019-01-30 11:34] VITALS: BP 121/84
--- NOTE | 2019-01-30 11:36 | Emergency Department Report ---
Blank Doc - Documentation Documentation: This is a 43-year-old male that presents with left middle finger pain and ting ling sensation s/p fall. This initial assessment/diagnostic orders/clinical plan/treatment(s) is/are subject to change based on patient's health status, clinical progression and re- assessment by fellow clinical providers in the ED. Further treatment and workup at subsequent clinical providers discretion. Patient/guardians urged not to elope from the ED as their condition may be serious if not clinically assessed and managed. Initial orders include: 1- Patient sent to [facility] for further evaluation and treatment 2- xray
--- NOTE | 2019-01-30 14:07 | Emergency Department Report ---
ED General Adult HPI - General Chief complaint: Extremity Injury, Upper Stated complaint: LFT FINGER TINGLE/SHARP PAIN Time Seen by Provider: 01/30/19 11:40 Source: patient Mode of arrival: Ambulatory Limitations: No Limitations - History of Present Illness Initial comments: She presents to the emergency department with a chief complaint of left middle digit pain 2-3 weeks. Patient states couple weeks ago he had an infection at the tip of his finger that was drained. Since that time the patient complains of sharp pains running up his finger into his arm. -: Gradual Location: upper extremity Severity scale (0 -10): 2 Quality: aching Consistency: constant Improves with: none Worsens with: none Associated Symptoms: denies other symptoms Treatments Prior to Arrival: none - Related Data Home Medications Medication Instructions Recorded Confirmed Last Taken Lisinopril/Hydrochlorothiazide 20 mg PO QDAY 11/27/17 11/27/17 Unknown [Zestoretic 20-25 mg] cloNIDine [Catapres] 0.2 mg PO BID 11/27/17 11/27/17 Unknown Previous Rx's Medication Instructions Recorded Last Taken Type Carvedilol [Coreg] 12.5 mg PO BID #60 tablet 12/03/15 Unknown Rx amLODIPine [Norvasc] 10 mg PO DAILY #30 tablet 12/03/15 Unknown Rx metFORMIN [Glucophage] 500 mg PO BID #60 tablet 08/20/16 Unknown Rx Lisinopril/Hydrochlorothiazide 1 tab PO QDAY #30 tab 11/27/17 Unknown Rx [Zestoretic 20-25 mg] Ondansetron [Zofran Odt] 4 mg PO Q8HR PRN #14 tab.rapdis 11/27/17 Unknown Rx Furosemide [Lasix TAB] 40 mg PO QDAY #10 tablet 12/28/17 Unknown Rx traMADol [Ultram 50 MG tab] 50 mg PO Q4HR PRN #10 tablet 12/28/17 Unknown Rx Amoxicillin/Potassium Clav 1 each PO BID #14 tablet 07/03/18 Unknown Rx [Augmentin 875-125 Tablet] Fluticasone [Flonase] 1 spray NS QDAY #1 bottle 07/03/18 Unknown Rx Ibuprofen [Motrin] 600 mg PO Q8H PRN #20 tablet 07/03/18 Unknown Rx traMADol [Ultram] 50 mg PO Q6HR PRN #10 tablet 07/03/18 Unknown Rx Diphenoxylate/Atropine [Lomotil] 1 tab PO Q4H PRN #10 tablet 10/14/18 Unknown Rx Ondansetron [Zofran Odt] 4 mg PO Q8HR #10 tab.rapdis 10/14/18 Unknown Rx Pantoprazole [Protonix] 40 mg PO QDAY #30 tablet 10/14/18 Unknown Rx traMADol [Ultram] 50 mg PO Q6HR PRN #12 tablet 10/14/18 Unknown Rx Dicyclomine [Bentyl] 20 mg PO QID PRN #20 tablet 01/02/19 Unknown Rx Famotidine [Pepcid] 40 mg PO QHS #30 tablet 01/02/19 Unknown Rx Sucralfate [Carafate] 1 gm PO Q6HR #5 tablet 01/02/19 Unknown Rx cephALEXin [Keflex] 500 mg PO QID 7 Days #28 capsule 01/02/19 Unknown Rx Ibuprofen [Motrin] 600 mg PO Q8H PRN #30 tablet 01/30/19 Unknown Rx Prednisone [predniSONE 5 mg (6-Day 5 mg PO .TAPER #1 tab.ds.pk 01/30/19 Unknown Rx Pack, 21 Tabs)] Allergies Allergy/AdvReac Type Severity Reaction Status Date / Time tomato [Tomato] Allergy Swelling Verified 10/22/18 12:03 ED Review of Systems ROS: Stated complaint: LFT FINGER TINGLE/SHARP PAIN Other details as noted in HPI Comment: All other systems reviewed and negative Constitutional: denies: chills, fever Eyes: denies: eye pain, eye discharge, vision change ENT: denies: ear pain, throat pain Respiratory: denies: cough, shortness of breath, wheezing Cardiovascular: denies: chest pain, palpitations Endocrine: no symptoms reported Gastrointestinal: denies: abdominal pain, nausea, diarrhea Genitourinary: denies: urgency, dysuria Musculoskeletal: denies: back pain, joint swelling, arthralgia Skin: denies: rash, lesions Neurological: denies: headache, weakness, paresthesias Psychiatric: denies: anxiety, depression Hematological/Lymphatic: denies: easy bleeding, easy bruising ED Past Medical Hx - Past Medical History Hx Hypertension: Yes Hx CVA: Yes Hx Congestive Heart Failure: No Hx Diabetes: Yes Hx GERD: Yes Hx Headaches / Migraines: Yes Hx Asthma: No Hx COPD: No Additional medical history: sleep apnea, hiatal hernia. chronic back pain - Surgical History Additional Surgical History: Right upper extremity surgery secondary to trauma, cardiac catheterization - Social History Smoking Status: Never Smoker Substance Use Type: None - Medications Home Medications: Home Medications Medication Instructions Recorded Confirmed Last Taken Type Carvedilol [Coreg] 12.5 mg PO BID #60 tablet 12/03/15 11/27/17 Unknown Rx amLODIPine [Norvasc] 10 mg PO DAILY #30 tablet 12/03/15 11/27/17 Unknown Rx metFORMIN [Glucophage] 500 mg PO BID #60 tablet 08/20/16 11/27/17 Unknown Rx Lisinopril/Hydrochlorothiazide 1 tab PO QDAY #30 tab 11/27/17 Unknown Rx [Zestoretic 20-25 mg] Lisinopril/Hydrochlorothiazide 20 mg PO QDAY 11/27/17 11/27/17 Unknown History [Zestoretic 20-25 mg] Ondansetron [Zofran Odt] 4 mg PO Q8HR PRN #14 tab.rapdis 11/27/17 Unknown Rx cloNIDine [Catapres] 0.2 mg PO BID 11/27/17 11/27/17 Unknown History Furosemide [Lasix TAB] 40 mg PO QDAY #10 tablet 12/28/17 Unknown Rx traMADol [Ultram 50 MG tab] 50 mg PO Q4HR PRN #10 tablet 12/28/17 Unknown Rx Amoxicillin/Potassium Clav 1 each PO BID #14 tablet 07/03/18 Unknown Rx [Augmentin 875-125 Tablet] Fluticasone [Flonase] 1 spray NS QDAY #1 bottle 07/03/18 Unknown Rx Ibuprofen [Motrin] 600 mg PO Q8H PRN #20 tablet 07/03/18 Unknown Rx traMADol [Ultram] 50 mg PO Q6HR PRN #10 tablet 07/03/18 Unknown Rx Diphenoxylate/Atropine [Lomotil] 1 tab PO Q4H PRN #10 tablet 10/14/18 Unknown Rx Ondansetron [Zofran Odt] 4 mg PO Q8HR #10 tab.rapdis 10/14/18 Unknown Rx Pantoprazole [Protonix] 40 mg PO QDAY #30 tablet 10/14/18 Unknown Rx traMADol [Ultram] 50 mg PO Q6HR PRN #12 tablet 10/14/18 Unknown Rx Dicyclomine [Bentyl] 20 mg PO QID PRN #20 tablet 01/02/19 Unknown Rx Famotidine [Pepcid] 40 mg PO QHS #30 tablet 01/02/19 Unknown Rx Sucralfate [Carafate] 1 gm PO Q6HR #5 tablet 01/02/19 Unknown Rx cephALEXin [Keflex] 500 mg PO QID 7 Days #28 capsule 01/02/19 Unknown Rx Ibuprofen [Motrin] 600 mg PO Q8H PRN #30 tablet 01/30/19 Unknown Rx Prednisone [predniSONE 5 mg (6-Day 5 mg PO .TAPER #1 tab.ds.pk 01/30/19 Unknown Rx Pack, 21 Tabs)] ED Physical Exam - General Limitations: No Limitations General appearance: alert, in no apparent distress - Head Head exam: Present: atraumatic, normocephalic - Eye Eye exam: Present: normal appearance - ENT ENT exam: Present: mucous membranes moist - Neck Neck exam: Present: normal inspection - Respiratory Respiratory exam: Present: normal lung sounds bilaterally. Absent: respiratory distress - Cardiovascular Cardiovascular Exam: Present: regular rate, normal rhythm. Absent: systolic mur mur, diastolic murmur, rubs, gallop - GI/Abdominal GI/Abdominal exam: Present: soft, normal bowel sounds - Rectal Rectal exam: Present: deferred - Extremities Exam Extremities exam: Present: normal inspection - Back Exam Back exam: Present: normal inspection - Neurological Exam Neurological exam: Present: alert, oriented X3, CN II-XII intact. Absent: motor sensory deficit - Psychiatric Psychiatric exam: Present: normal affect, normal mood - Skin Skin exam: Present: warm, dry, intact, normal color. Absent: rash ED Course Vital Signs 01/30/19 11:31 Temperature 98.1 F Pulse Rate 88 Respiratory 16 Rate Blood Pressure 121/84 O2 Sat by Pulse 98 Oximetry ED Medical Decision Making - Medical Decision Making discussed results with patient Critical care attestation.: If time is entered above; I have spent that time in minutes in the direct care of this critically ill patient, excluding procedure time. ED Disposition Clinical Impression: Finger pain, left, Paresthesias in left hand Disposition: DC- TO HOME OR SELFCARE Is pt being admited?: No Does the pt Need Aspirin: No Condition: Stable Instructions: Paresthesia (ED) Additional Instructions: return if worse Prescriptions: Ibuprofen [Motrin] 600 mg PO Q8H PRN #30 tablet PRN Reason: Pain Prednisone [predniSONE 5 mg (6-Day Pack, 21 Tabs)] 5 mg PO .TAPER #1 tab.ds.pk Referrals: PRIMARY CARE, [Primary Care Provider] - 3-5 Days [facility] [Provider Group] - 3-5 Days [facility] [Provider Group] - 3-5 Days Time of Disposition: 14:07
--- NOTE | 2019-01-30 14:31 | XRay Report ---
LEFT HAND 3 VIEWS INDICATION / CLINICAL INFORMATION: Left hand pain for 2 weeks. COMPARISON: None available. FINDINGS: BONES / JOINT(S): The joint spaces are well-maintained. No significant arthritis. There is no evidenc e of fracture, dislocation or destructive lesion. SOFT TISSUES: No significant abnormality. ADDITIONAL FINDINGS: None. IMPRESSION: Negative study. Signer Name: Aries Gooden MD Signed: 01/30/2019 2:26 PM Workstation Name: [id number]
== END 2019-01-30 14:23 | disposition home or self-care (01) ==
LOC: ED 11:03
DX: M79.645 Pain in left finger(s) (principal); R20.2 Paresthesia of skin; I10 Essential (primary) hypertension; E11.9 Type 2 diabetes mellitus without complications; G43.909 Migraine, unspecified, not intractable, without status migrainosus; K21.9 Gastro-esophageal reflux disease without esophagitis; G89.29 Other chronic pain; M54.9 Dorsalgia, unspecified; Z98.890 Other specified postprocedural states; Z95.818 Presence of other cardiac implants and grafts; Z86.73 Personal history of transient ischemic attack (TIA), and cerebral infarction without residual deficits; Z79.2 Long term (current) use of antibiotics; Z79.1 Long term (current) use of non-steroidal anti-inflammatories (NSAID); Z79.899 Other long term (current) drug therapy; Z91.018 Allergy to other foods

== ENCOUNTER 2019-02-23 14:33 | Emergency (ER) | payer SELFPAY ==
[2019-02-23] MEDS ORDERED: ASPIRIN PO ONE (14:59)
[2019-02-23 15:18] LABS: Basophils % (Auto) 0.7 % (0.0-1.8); Eosinophils # (Auto) 0.1 K/mm3 (0.0-0.4); Eosinophils % (Auto) 2.4 % (0.0-4.3); Hematocrit 36.8 % (35.5-45.6); Hemoglobin 11.8 gm/dl (11.8-15.2); Lymphocytes # (Auto) 1.8 K/mm3 (1.2-5.4); Lymphocytes % (Auto) 32.7 % (13.4-35.0); Mean Corpuscular HGB Conc 32 % (32-34); Mean Corpuscular Volume 78 fl (84-94); Monocytes # (Auto) 0.4 K/mm3 (0.0-0.8); Platelet Count 269 K/mm3 (140-440); Red Blood Count 4.75 M/mm3 (3.65-5.03); Red Cell Distribution Width 16.1 % (13.2-15.2)
--- NOTE | 2019-02-23 15:35 | XRay Report ---
CHEST 1 VIEW INDICATION: Chest Pain. COMPARISON: 10/14/2018 FINDINGS: Support devices: None. Heart: Within normal limits. Lungs/Pleura: No acute air space or interstitial disease. Additional findings: None. IMPRESSION: No acute findings. Signer Name: Juan Duran Jr, MD Signed: 02/23/2019 3:31 PM Workstation Name: [id number]
[2019-02-23 16:22] LABS: BUN/Creatinine Ratio 14; Blood Urea Nitrogen 22 mg/dL (9-20); Hemolysis Index 3
[2019-02-23] MEDS ORDERED: ASPIRIN ONE (18:10)
--- NOTE | 2019-02-23 21:42 | Cat Scan Report ---
CT head without contrast Clinical history: Left arm numbness FINDINGS: The brain appears to demonstrate appropriate attenuation without significant interval tolentino e from the CT of 11/27/2017. There is again noted incidental calcification involving the falx at. The ventricular system appears unchanged in size and configuration. There is no CT evidence of acute intr acranial hemorrhage or significant mass effect. There is continued mild focal opacification involving the visualized medial right sphenoid sinus. All CT scans at this location are performed using the CT dose reduction for [employer] by means of automated exposure control. IMPRESSION: There is no CT evidence of acute intracranial process. Signer Name: Sterling Houser MD Signed: 02/23/2019 9:37 PM Workstation Name: [id number]
[2019-02-23 21:47] VITALS: BP 142/94
--- NOTE | 2019-02-23 22:10 | Emergency Department Report ---
ED Chest Pain HPI - General Chief Complaint: Chest Pain Stated Complaint: LFT SIDE TINGLE/CHEST PAIN Time Seen by Provider: 02/23/19 18:17 Source: patient Mode of arrival: Ambulatory Limitations: No Limitations - History of Present Illness Initial Comments: 43 y.o aam presents to ER with chest pain, sharp, for the past four days. patient also c/o arm numbness, left for the past month. no n/v, no sob. states he had heart cath 4 years ago. no diaphoresis. Severity scale (0 -10): 8 - Related Data Home Medications Medication Instructions Recorded Confirmed Last Taken cloNIDine [Catapres] 0.2 mg PO BID 11/27/17 02/23/19 Unknown AtorvaSTATin [Lipitor] 20 mg PO DAILY 02/23/19 02/23/19 Unknown Ferrous Sulfate [Iron 325 MG] 325 mg PO BID 02/23/19 02/23/19 Unknown Glimepiride [Amaryl] 4 mg PO DAILY 02/23/19 02/23/19 Unknown Metformin HCl [metFORMIN] 1,000 mg PO BID 02/23/19 02/23/19 Unknown Triamterene-Hctz 75-50 mg Tab 1 tab PO DAILY 02/23/19 02/23/19 Unknown amLODIPine [Norvasc] 10 mg PO DAILY 02/23/19 02/23/19 Unknown Previous Rx's Medication Instructions Recorded Last Taken Type Cyclobenzaprine [Flexeril] 10 mg PO TID PRN #20 tablet 02/23/19 Unknown Rx Allergies Allergy/AdvReac Type Severity Reaction Status Date / Time tomato [Tomato] Allergy Swelling Verified 02/23/19 14:38 Heart Score - HEART Score History: Slightly suspicious EKG: Normal Age: < 45 Risk factors: No known risk factors Troponin: < normal limit HEART Score: 0 - Critical Actions Critical Actions: 0-3 pts:0.9-1.7%risk of adverse cardiac event.Candidate for discharge ED Review of Systems ROS: Stated complaint: LFT SIDE TINGLE/CHEST PAIN Other details as noted in HPI Comment: All other systems reviewed and negative Constitutional: denies: see HPI Eyes: denies: eye pain ENT: denies: ear pain Cardiovascular: chest pain Gastrointestinal: denies: abdominal pain, nausea Neurological: paresthesias ED Past Medical Hx - Past Medical History Previous Medical History?: Yes Hx Hypertension: Yes Hx CVA: Yes Hx Congestive Heart Failure: No Hx Diabetes: Yes Hx GERD: Yes Hx Headaches / Migraines: Yes Hx Asthma: No Hx COPD: No Additional medical history: sleep apnea, hiatal hernia. chronic back pain, "heart problems" - Surgical History Past Surgical History?: Yes Additional Surgical History: Right upper extremity surgery secondary to trauma, cardiac catheterization - Social History Smoking Status: Former Smoker Substance Use Type: None - Medications Home Medications: Home Medications Medication Instructions Recorded Confirmed Last Taken Type cloNIDine [Catapres] 0.2 mg PO BID 11/27/17 02/23/19 Unknown History AtorvaSTATin [Lipitor] 20 mg PO DAILY 02/23/19 02/23/19 Unknown History Cyclobenzaprine [Flexeril] 10 mg PO TID PRN #20 tablet 02/23/19 Unknown Rx Ferrous Sulfate [Iron 325 MG] 325 mg PO BID 02/23/19 02/23/19 Unknown History Glimepiride [Amaryl] 4 mg PO DAILY 02/23/19 02/23/19 Unknown History Metformin HCl [metFORMIN] 1,000 mg PO BID 02/23/19 02/23/19 Unknown History Triamterene-Hctz 75-50 mg Tab 1 tab PO DAILY 02/23/19 02/23/19 Unknown History amLODIPine [Norvasc] 10 mg PO DAILY 02/23/19 02/23/19 Unknown History ED Physical Exam - General Limitations: No Limitations General appearance: alert, in no apparent distress - Head Head exam: Present: atraumatic, normocephalic - Eye Eye exam: Present: normal appearance, PERRL, EOMI Pupils: Present: normal accommodation - ENT ENT exam: Present: normal exam, normal orophraynx - Respiratory Respiratory exam: Present: normal lung sounds bilaterally - Cardiovascular Cardiovascular Exam: Present: regular rate, normal rhythm - GI/Abdominal GI/Abdominal exam: Present: soft, normal bowel sounds - Neurological Exam Neurological exam: Present: alert, oriented X3 ED Course Vital Signs 02/23/19 02/23/19 02/23/19 14:57 18:15 21:46 Temperature 98.4 F 98.0 F Pulse Rate 101 H 98 H Respiratory 18 20 18 Rate Blood Pressure 133/85 Blood Pressure 136/96 142/94 [Left] O2 Sat by Pulse 96 98 99 Oximetry REYNALDO score - Reynaldo Score Age > 65: (0) No Aspirin use within the Past 7 Days: (0) No 3 or more CAD Risk Factors: (0) No 2 or more Angina events in past 24 hrs: (1) Yes Known CAD with more than 50% Stenosis: (0) No Elevated Cardiac Markers: (0) No ST Deviation Greater than 0.5mm: (0) No REYNALDO Score: 1 ED Medical Decision Making - Lab Data Result diagrams: 02/23/19 15:03 02/23/19 15:03 - EKG Data -: EKG Interpreted by Me EKG shows normal: sinus rhythm Rate: normal - EKG Data When compared to previous EKG there are: no significant change - Medical Decision Making pain is reproducible, trop neg x 3 ct head d/t paresthesia showed no lesions or infarcts, will d/c home f/u with pcp, reports to er if symptoms worsens. Critical care attestation.: If time is entered above; I have spent that time in minutes in the direct care of this critically ill patient, excluding procedure time. ED Disposition Clinical Impression: Chest pain Qualifiers: Chest pain type: other chest pain Qualified Code(s): R07.89 - Other chest pain Disposition: DC-01 TO HOME OR SELFCARE Is pt being admited?: No Does the pt Need Aspirin: No Condition: Stable Instructions: Chest Pain (ED) Prescriptions: Cyclobenzaprine [Flexeril] 10 mg PO TID PRN #20 tablet PRN Reason: Muscle Spasm Referrals: HOLLY COLLINS MD [Primary Care Provider] - 3-5 Days
== END 2019-02-23 22:46 | disposition home or self-care (01) ==
LOC: ED 14:33
DX: R07.89 Other chest pain (principal); I10 Essential (primary) hypertension; I63.9 Cerebral infarction, unspecified; E11.9 Type 2 diabetes mellitus without complications; K21.9 Gastro-esophageal reflux disease without esophagitis; G43.909 Migraine, unspecified, not intractable, without status migrainosus; G89.29 Other chronic pain; Z87.891 Personal history of nicotine dependence; Z79.899 Other long term (current) drug therapy; Z91.018 Allergy to other foods
CPT/HCPCS: 36415; 70450; 71045; 80048; 84484; 85025; 93005; 93010

== ENCOUNTER 2019-04-29 08:28 | Emergency (ER) | payer SELFPAY ==
[2019-04-29] MEDS ORDERED: ASPIRIN PO ONE (08:49)
--- NOTE | 2019-04-29 09:34 | XRay Report ---
CHEST 2 VIEWS INDICATION / CLINICAL INFORMATION: Chest Pain. COMPARISON: 02/23/2019 FINDINGS: SUPPORT DEVICES: None. HEART / MEDIASTINUM: No significant abnormality. LUNGS / PLEURA: No significant pulmonary or pleural abnormality. No pneumothorax. ADDITIONAL FINDINGS: No significant additional findings. IMPRESSION: 1. No acute findings. Signer Name: Brandin Joshi MD Signed: 04/29/2019 9:30 AM Workstation Name: [id number]
[2019-04-29 09:54] LABS: Basophils % (Auto) 0.8 % (0.0-1.8); Eosinophils # (Auto) 0.1 K/mm3 (0.0-0.4); Eosinophils % (Auto) 2.2 % (0.0-4.3); Hematocrit 34.5 % (35.5-45.6); Hemoglobin 11.4 gm/dl (11.8-15.2); Lymphocytes # (Auto) 1.3 K/mm3 (1.2-5.4); Lymphocytes % (Auto) 25.8 % (13.4-35.0); Mean Corpuscular HGB Conc 33 % (32-34); Mean Corpuscular Volume 78 fl (84-94); Monocytes # (Auto) 0.4 K/mm3 (0.0-0.8); Monocytes % (Auto) 7.3 % (0.0-7.3); Platelet Count 307 K/mm3 (140-440); Red Blood Count 4.41 M/mm3 (3.65-5.03); Red Cell Distribution Width 15.5 % (13.2-15.2)
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
[2019-04-29 10:12] LABS: BUN/Creatinine Ratio 15; Blood Urea Nitrogen 20 mg/dL (9-20); Calcium 9.7 mg/dL (8.4-10.2); Hemolysis Index 1
[2019-04-29] MEDS ORDERED: PEPCID PO ONE (10:40)
[2019-04-29] MEDS ORDERED: IBUPROFEN PO ONE (10:40)
[2019-04-29] MEDS ORDERED: TYLENOL PO ONE (10:40)
--- NOTE | 2019-04-29 10:40 | Event Note ---
Date of service: 04/29/19 Face to Face: This is a 44-year-old gentleman, multiple medical problems, presenting with left-sided chest pain, and right-sided paracervical neck pain and right upper extremity radicular pain after mechanical fall. He initially stated that his chest pain was present before the fall, and then indicated that his chest pain started after the fall. He reports that he did not hit his head or his neck. He reports that he fell, grabbed himself with his arm, and since then, has been having right-sided radicular symptoms. The patient denies DVT, pulmonary embolism risk factors, he is low risk by well's criteria, and he is perc negative EKG is morphologically unchanged from prior, and patient appears to be low risk for major adverse cardiac event as per the heart score. In addition, he presented to this department in February 2019 for similar symptoms. The patient also corroborates that this is similar to his prior presentation. This institution has an existing protocol whereby patients who are at low risk for major adverse cardiac event can be referred to outpatient cardiology for expedited risk stratification. Plan to check two EKGs, two troponins, x-ray of the chest, noncontrast CT scan of the cervical spine. We will also treat his pain. If diagnostics unremarkable, he can follow up with outpatient pain specialist which she already has for his presumed acute on chronic radicular pain, an outpatient cardiology to complete a risk stratification. Vital Signs 04/29/19 04/29/19 08:53 10:04 Temperature 97.6 F 97.4 F L Pulse Rate 74 74 Respiratory 20 18 Rate Blood Pressure 114/77 117/72 [Left] O2 Sat by Pulse 98 99 Oximetry Lab Results 04/29/19 04/29/19 Range/Units 09:36 09:37 WBC 5.2 (4.5-11.0) K/mm3 RBC 4.41 (3.65-5.03) M/mm3 Hgb 11.4 L (11.8-15.2) gm/dl Hct 34.5 L (35.5-45.6) % MCV 78 L (84-94) fl MCH 26 L (28-32) pg MCHC 33 (32-34) % RDW 15.5 H (13.2-15.2) % Plt Count 307 (140-440) K/mm3 Lymph % (Auto) 25.8 (13.4-35.0) % [place] % (Auto) 7.3 (0.0-7.3) % Eos % (Auto) 2.2 (0.0-4.3) % Baso % (Auto) 0.8 (0.0-1.8) % Lymph # 1.3 (1.2-5.4) K/mm3 [place] # 0.4 (0.0-0.8) K/mm3 Eos # 0.1 (0.0-0.4) K/mm3 Baso # 0.0 (0.0-0.1) K/mm3 Seg Neutrophils % 63.9 (40.0-70.0) % Seg Neutrophils # 3.3 (1.8-7.7) K/mm3 Sodium 138 (137-145) mmol/L Potassium 4.6 (3.6-5.0) mmol/L Chloride 97.5 L (98-107) mmol/L Carbon Dioxide 25 (22-30) mmol/L Anion Gap 20 mmol/L BUN 20 (9-20) mg/dL Creatinine 1.3 (0.8-1.5) mg/dL Estimated GFR > 60 ml/min BUN/Creatinine Ratio 15 % Glucose 161 H (75-100) mg/dL Calcium 9.7 (8.4-10.2) mg/dL Troponin T < 0.010 (0.00-0.029) ng/mL
--- NOTE | 2019-04-29 11:20 | XRay Report ---
Right shoulder, 3 views INDICATION: Pain following recent fall FINDINGS: The joint space is maintained. There is no fracture or dislocation. No significant spurring or arthritic change. No bone lesion or periostitis. No significant abnormality. IMPRESSION: Negative study Signer Name: Brandin Joshi MD Signed: 04/29/2019 11:16 AM Workstation Name: [id number]
--- NOTE | 2019-04-29 12:10 | Cat Scan Report ---
CT cervical spine wo con INDICATION / CLINICAL INFORMATION: 44 years Male; fall neck pain with radiculopathy. TECHNIQUE: Axial CT images of the cervical spine were obtained. Sagittal and coronal reformatted images were pr oduced. All CT scans at this location are performed using CT dose reduction for ALARA by means of aut omated exposure control. Study mildly limited by patient body habitus. COMPARISON: Prior MR - 04/09/2013 FINDINGS: POST-SURGICAL CHANGES: None. ALIGNMENT: Normal cervical lordosis seen without significant scoliosis. VERTEBRAE: No signs of fracture. Vertebral bodies are grossly normal in height throughout. There is mild to moderate osseous foraminal narrowing on the right at C4-5 and C5-6 from uncinate hyp ertrophy. Similar findings seen on the left at these levels, as well as C3-4. Minimal facet hypertrophy seen at various levels. INTRAVERTEBRAL DISCS:Disc spaces are fairly well-maintained throughout without significant canal sten osis. No dominant herniation appreciated. PARASPINAL SOFT TISSUES: No significant abnormality. ADDITIONAL FINDINGS: None. IMPRESSION: 1. No signs of acute bony trauma to the cervical spine. Signer Name: Giovanny Dasilva MD, III Signed: 04/29/2019 12:06 PM Workstation Name: [id number]
[2019-04-29 13:51] VITALS: BP 102/62
== END 2019-04-29 13:51 | disposition home or self-care (01) ==
LOC: ED 08:28
DX: S39.92XA Unspecified injury of lower back, initial encounter (principal); M25.552 Pain in left hip; I10 Essential (primary) hypertension; E66.01 Morbid (severe) obesity due to excess calories; Z68.41 Body mass index [BMI] 40.0-44.9, adult; Z91.018 Allergy to other foods; Z79.899 Other long term (current) drug therapy; Z79.82 Long term (current) use of aspirin; E11.9 Type 2 diabetes mellitus without complications; K21.9 Gastro-esophageal reflux disease without esophagitis; G43.909 Migraine, unspecified, not intractable, without status migrainosus; G89.29 Other chronic pain; G47.30 Sleep apnea, unspecified; V89.2XXA Person injured in unspecified motor-vehicle accident, traffic, initial encounter; Y93.89 Activity, other specified; Y92.488 Other paved roadways as the place of occurrence of the external cause; Y99.8 Other external cause status
CPT/HCPCS: 36415; 71046; 72125; 80048; 84484; 85025; 93005; 93010; 99285

== ENCOUNTER 2019-07-17 08:30 | Observation (INO) | payer OTHER ==
--- NOTE | 2019-07-17 09:31 | Cat Scan Report ---
CT HEAD WITHOUT CONTRAST INDICATION / CLINICAL INFORMATION: MAIN: neuro deficits <6hrs or sx present upon awakening LEFT SIDED WEAKNESS X 3 DAYS HX OF CVA 2004. TECHNIQUE: All CT scans at this location are performed using CT dose reduction for ALARA by means of automated e xposure control. COMPARISON: 02/23/2019 FINDINGS: HEMORRHAGE: No evidence of intracranial hemorrhage or extra-axial fluid collection. EXTRA-AXIAL SPACES: Cortical sulci, sylvian fissures and basilar cisterns have an unremarkable appear ance. VENTRICULAR SYSTEM: The ventricular system is of normal size and configuration. CEREBRAL PARENCHYMA: No areas of abnormal brain parenchymal attenuation are identified. There is no i ndication of recent infarction. MIDLINE SHIFT OR HERNIATION: There is no mass effect. CEREBELLUM / BRAINSTEM: Brainstem and cerebellum have an unremarkable appearance. INTRACRANIAL VESSELS:No abnormalities are identified on this noncontrast head CT. ORBITS: visualized portions of the orbits have an unremarkable appearance. SOFT TISSUES of HEAD: No significant abnormality. CALVARIUM: Evaluation of bone windows reveals no abnormalities. PARANASAL SINUSES / MASTOID AIR CELLS: Partial opacification of the maxillary sinuses. ADDITIONAL FINDINGS: None. IMPRESSION: 1. No acute intracranial abnormality. 2. Bilateral maxillary sinusitis. A verbal report was given to Dr. Winston in the emergency department on 07/17/2019 at 8:24 AM Eastern Standard Time. Signer Name: Adam Davidson MD Signed: 07/17/2019 9:27 AM Workstation Name: [id number]
[2019-07-17 09:45] LABS: Basophils % (Auto) 0.8 % (0.0-1.8); Eosinophils % (Auto) 1.1 % (0.0-4.3); Hematocrit 36.4 % (35.5-45.6); Lymphocytes # (Auto) 1.2 K/mm3 (1.2-5.4); Lymphocytes % (Auto) 26.9 % (13.4-35.0); Mean Corpuscular HGB Conc 33 % (32-34); Mean Corpuscular Volume 76 fl (84-94); Monocytes # (Auto) 0.3 K/mm3 (0.0-0.8); Monocytes % (Auto) 7.4 % (0.0-7.3); Platelet Count 316 K/mm3 (140-440); Red Blood Count 4.78 M/mm3 (3.65-5.03); Red Cell Distribution Width 16.3 % (13.2-15.2)
[2019-07-17 09:54] LABS: Partial Thromboplastin Time 28.1 Sec. (24.2-36.6); Thrombin Time 15.9 Sec. (15.1-19.6)
[2019-07-17 10:07] LABS: BUN/Creatinine Ratio 16; Blood Urea Nitrogen 14 mg/dL (9-20); Calcium 9.7 mg/dL (8.4-10.2); Hemolysis Index 30
[2019-07-17] MEDS ORDERED: oxyCODONE /ACETAMINOPHEN 5-325MG TAB PO ONE (11:17)
[2019-07-17] MEDS ORDERED: ASPIRIN 81 MG TAB CHEW PO ONE (11:17)
[2019-07-17] MEDS ORDERED: IBUPROFEN 600 MG TAB PO ONE (11:17)
[2019-07-17] MEDS ORDERED: FAMOTIDINE 20 MG TAB PO ONE (11:17)
--- NOTE | 2019-07-17 11:18 | Emergency Department Report ---
ED General Adult HPI - General Chief complaint: Neuro Symptoms/Deficit Stated complaint: LEFTSIDE NUMB/ Time Seen by Provider: 07/17/19 10:57 Source: patient, RN notes reviewed, old records reviewed Mode of arrival: Ambulatory Limitations: No Limitations - History of Present Illness Initial comments: The patient is a 44-year-old gentleman who is not known to this provider previously. He is left-hand dominant, obese, with a history of hypertension, high cholesterol, diabetes, history of stroke, walks with a cane. The patient presents to the ER with complaint of left-sided numbness, and left lower extremity weakness, for 3 days. He also complains of chronic nontraumatic right-sided trapezius pain, present since and evaluation in April. The patient reports she has not recently fallen and hit his head and/or neck. He currently denies headache, midline cervical spine neck pain, chest pain, abdominal pain, he has chronic exertional shortness of breath, he denies urinary symptoms, denies hematemesis and bright red blood per rectum. His numbness and is in the left upper and left lower extremity, and he subjectively feels weaker in his left lower extremity. -: days(s) (3) Location: left, upper extremity, lower extremity Consistency: constant Improves with: rest Worsens with: movement - Related Data Home Medications Medication Instructions Recorded Confirmed Last Taken cloNIDine [Catapres] 0.2 mg PO BID 11/27/17 02/23/19 Unknown AtorvaSTATin [Lipitor] 20 mg PO DAILY 02/23/19 02/23/19 Unknown Ferrous Sulfate [Iron 325 MG] 325 mg PO BID 02/23/19 02/23/19 Unknown Glimepiride [Amaryl] 4 mg PO DAILY 02/23/19 02/23/19 Unknown Metformin HCl [metFORMIN] 1,000 mg PO BID 02/23/19 02/23/19 Unknown Triamterene-Hctz 75-50 mg Tab 1 tab PO DAILY 02/23/19 02/23/19 Unknown amLODIPine [Norvasc] 10 mg PO DAILY 02/23/19 02/23/19 Unknown Previous Rx's Medication Instructions Recorded Last Taken Type Cyclobenzaprine [Flexeril] 10 mg PO TID PRN #20 tablet 02/23/19 Unknown Rx Aspirin EC [Halfprin EC] 81 mg PO QDAY #90 tablet. 04/29/19 Unknown Rx Allergies Allergy/AdvReac Type Severity Reaction Status Date / Time tomato [Tomato] Allergy Swelling Verified 02/23/19 14:38 ED Review of Systems ROS: Stated complaint: LEFTSIDE NUMB/ Other details as noted in HPI Constitutional: denies: fever Eyes: denies: eye discharge ENT: denies: epistaxis Respiratory: denies: wheezing Cardiovascular: denies: syncope Genitourinary: denies: dysuria Musculoskeletal: myalgia Neurological: weakness, numbness, paresthesias. denies: vertigo ED Past Medical Hx - Past Medical History Previous Medical History?: Yes Hx Hypertension: Yes Hx CVA: Yes Hx Congestive Heart Failure: No Hx Diabetes: Yes Hx GERD: Yes Hx Headaches / Migraines: Yes Hx Asthma: No Hx COPD: No Additional medical history: sleep apnea, hiatal hernia. chronic back pain, "heart problems" - Surgical History Past Surgical History?: Yes Additional Surgical History: Right upper extremity surgery secondary to trauma, cardiac catheterization - Social History Smoking Status: Never Smoker Substance Use Type: None - Medications Home Medications: Home Medications Medication Instructions Recorded Confirmed Last Taken Type cloNIDine [Catapres] 0.2 mg PO BID 11/27/17 02/23/19 Unknown History AtorvaSTATin [Lipitor] 20 mg PO DAILY 02/23/19 02/23/19 Unknown History Cyclobenzaprine [Flexeril] 10 mg PO TID PRN #20 tablet 02/23/19 Unknown Rx Ferrous Sulfate [Iron 325 MG] 325 mg PO BID 02/23/19 02/23/19 Unknown History Glimepiride [Amaryl] 4 mg PO DAILY 02/23/19 02/23/19 Unknown History Metformin HCl [metFORMIN] 1,000 mg PO BID 02/23/19 02/23/19 Unknown History Triamterene-Hctz 75-50 mg Tab 1 tab PO DAILY 02/23/19 02/23/19 Unknown History amLODIPine [Norvasc] 10 mg PO DAILY 02/23/19 02/23/19 Unknown History Aspirin EC [Halfprin EC] 81 mg PO QDAY #90 tablet. 04/29/19 Unknown Rx ED Physical Exam - General Limitations: No Limitations General appearance: alert, in no apparent distress - Head Head exam: Present: atraumatic, normocephalic - Eye Eye exam: Present: normal appearance, PERRL, EOMI, other (visual acuity intact to finger counting in color perception at close distance). Absent: nystagmus - ENT ENT exam: Present: normal exam, normal orophraynx, mucous membranes moist, normal external ear exam - Neck Neck exam: Present: normal inspection, full ROM, other (there is reproducible right sided paracervical, trapezius tenderness.). Absent: tenderness, meningismus - Respiratory Respiratory exam: Present: normal lung sounds bilaterally. Absent: respiratory distress - Cardiovascular Cardiovascular Exam: Present: regular rate, normal rhythm, normal heart sounds. Absent: bradycardia, tachycardia, irregular rhythm, systolic murmur, diastolic murmur, rubs, gallop - GI/Abdominal GI/Abdominal exam: Present: soft. Absent: distended, tenderness, guarding, rebound, rigid, pulsatile mass - Rectal Rectal exam: Present: deferred - Extremities Exam Extremities exam: Present: normal inspection, full ROM, pedal edema, other (2+ pulses noted in the bilateral upper and lower extremities. The pelvis is stable. There is no long bony tenderness. The muscular compartments are soft. There is no redness, pus, streaking or erythema.). Absent: calf tenderness - Back Exam Back exam: Present: normal inspection, paraspinal tenderness. Absent: tenderness, CVA tenderness (R), CVA tenderness (L), vertebral tenderness - Neurological Exam Neurological exam: Present: alert, oriented X3, normal gait (the patient walks with a cane), other (there is no facial droop. The tongue is midline. Extraocular movements are intact bilaterally. Hearing is intact grossly. Minimal elevation of the tongue. V1, V2, V3 intact to light touch bilaterally. There is 5 out of 5 strength right arm and right leg. There is 5 out of 5 strength left arm. Sensation is intact to light touch, pins and proprioception bilateral upper and lower extremities. There is 4 out of 5 strength left lower extremity.) - Psychiatric Psychiatric exam: Present: normal affect, normal mood - Skin Skin exam: Present: warm, dry, intact, normal color. Absent: rash ED Course Vital Signs 07/17/19 07/17/19 08:37 11:39 Temperature 97.5 F L Pulse Rate 77 Respiratory 16 16 Rate Blood Pressure 138/93 O2 Sat by Pulse 95 Oximetry - Reevaluation(s) Reevaluation #1: 07/17/19 12:04 Dr Rossi accepts to her service ED Medical Decision Making - Lab Data Result diagrams: 07/17/19 09:06 07/17/19 09:06 Vital Signs 07/17/19 08:37 Temperature 97.5 F L Pulse Rate 77 Respiratory 16 Rate Blood Pressure 138/93 O2 Sat by Pulse 95 Oximetry Lab Results 07/17/19 07/17/19 07/17/19 Range/Units 09:06 09:06 09:06 WBC 4.3 L (4.5-11.0) K/mm3 RBC 4.78 (3.65-5.03) M/mm3 Hgb 12.0 (11.8-15.2) gm/dl Hct 36.4 (35.5-45.6) % MCV 76 L (84-94) fl MCH 25 L (28-32) pg MCHC 33 (32-34) % RDW 16.3 H (13.2-15.2) % Plt Count 316 (140-440) K/mm3 Lymph % (Auto) 26.9 (13.4-35.0) % [place] % (Auto) 7.4 H (0.0-7.3) % Eos % (Auto) 1.1 (0.0-4.3) % Baso % (Auto) 0.8 (0.0-1.8) % Lymph # 1.2 (1.2-5.4) K/mm3 [place] # 0.3 (0.0-0.8) K/mm3 Eos # 0.0 (0.0-0.4) K/mm3 Baso # 0.0 (0.0-0.1) K/mm3 Seg Neutrophils % 63.8 (40.0-70.0) % Seg Neutrophils # 2.7 (1.8-7.7) K/mm3 PT 13.3 (12.2-14.9) Sec. INR 1.00 (0.87-1.13) APTT 28.1 (24.2-36.6) Sec. Thrombin Time 15.9 (15.1-19.6) Sec. Sodium 139 (137-145) mmol/L Potassium 4.0 (3.6-5.0) mmol/L Chloride 101.0 (98-107) mmol/L Carbon Dioxide 21 L (22-30) mmol/L Anion Gap 21 mmol/L BUN 14 (9-20) mg/dL Creatinine 0.9 (0.8-1.5) mg/dL Estimated GFR > 60 ml/min BUN/Creatinine Ratio 16 % Glucose 215 H (75-100) mg/dL Calcium 9.7 (8.4-10.2) mg/dL Troponin T < 0.010 (0.00-0.029) ng/mL - EKG Data -: EKG Interpreted by Me EKG shows normal: sinus rhythm Rate: normal - EKG Data 07/17/19 12:05 The EKG shows a sinus rhythm, 72 bpm, normal axis, QTC within normal limits, poor R wave progression, motion artifact. This is not a STEMI. - Radiology Data Radiology results: pending, report reviewed, image reviewed Noncontrast CT scan of the brain is negative for acute disease - Medical Decision Making Differential diagnosis, including but not limited to: Peripheral neuropathy, subacute stroke, radiculopathy Assessment and plan: 44-year-old gentleman endorsing 3 days of left upper left lower extremity numbness, left lower extremity weakness, walks with a cane, sensation intact to light touch, pinch, proprioception in the bilateral upper and lower extremities, with downgoing plantar reflexes in the bilateral lower extremities. Patient not a TPA candidate as symptoms present for greater than 4.5 hours. This is unlikely to be a large vessel occlusion and symptoms present for greater than 24 hours. Given that he walks with a steady gait with a cane, has the aforementioned sensory examination, this is unlikely to be an acute cord compression. He'll need to be admitted to the medical service for further diagnostic evaluation and management. The Hospital physician is paged to arrange admission. Appropriate medications ordered. Patient asking to eat, and is eating without difficulty at this time. Critical care attestation.: If time is entered above; I have spent that time in minutes in the direct care of this critically ill patient, excluding procedure time. ED Disposition Clinical Impression: Morbid obesity with BMI of 40.0-44.9, adult, Left sided numbness, Left leg weakness Disposition: OP ADMIT IP TO THIS HOSP Is pt being admited?: Yes Condition: Good Referrals: HOLLY COLLINS MD [Primary Care Provider] - 3-5 Days
[2019-07-17] MEDS ORDERED: MAGNESIUM SULFATE 2 GM/50 ML BAG IV ONE ×2 (12:03→18:30)
[2019-07-17] MEDS: INSULIN LISPRO 100 UNIT/ML SUB-Q SCH ×2 (17:30→22:10)
[2019-07-17] MEDS ORDERED: CYCLOBENZAPRINE 10 MG TAB PO PRN (17:51)
--- NOTE | 2019-07-17 18:06 | History and Physical Report ---
History of Present Illness Date of admission: 07/17/19 12:04 Chief complaint: Left-sided weakness and shooting pains in his left lower extremity History of present illness: 44-year-old man who presents to the hospital complaining of left-sided weakness x3 days and shooting pains down his left leg. He states that he had a stroke in the past that affected his left side, but improved than left and with only very mild weakness on the left side. He then states that the weakness on the left side got worse. He had been having neck pain that was radiating down his right side, he was wondering if it had switched to the left side. He denies any weakness on the right side. He denies slurred speech or facial drooping today. He denies any trauma. He states that he was told that he had neuropathy in the past but does not know any much further about it. He also complains that he has chest pain at times, but he does not have it today he has not had it recently. He has chronic exertional shortness of breath however. He has not been giving a diagnosis for why he has exertional dyspnea. [facility] history of hypertension, GERD, chronic back pain, DM, cva PAST SURGICAL HISTORY: Right arm surgery SOCIAL HISTORY: Social alcohol, tobacco, no drugs FAMILY HISTORY: Hypertension Medications and Allergies Allergies Allergy/AdvReac Type Severity Reaction Status Date / Time tomato [Tomato] Allergy Swelling Verified 02/23/19 14:38 Home Medications Medication Instructions Recorded Confirmed Last Taken Type cloNIDine [Catapres] 0.2 mg PO BID 11/27/17 07/17/19 Unknown History AtorvaSTATin [Lipitor] 20 mg PO DAILY 02/23/19 07/17/19 Unknown History Cyclobenzaprine [Flexeril] 10 mg PO TID PRN #20 tablet 02/23/19 07/17/19 Unknown Rx Ferrous Sulfate [Iron 325 MG] 325 mg PO BID 02/23/19 07/17/19 Unknown History Glimepiride [Amaryl] 4 mg PO DAILY 02/23/19 07/17/19 Unknown History Metformin HCl [metFORMIN] 1,000 mg PO BID 02/23/19 07/17/19 Unknown History Triamterene-Hctz 75-50 mg Tab 1 tab PO DAILY 02/23/19 07/17/19 Unknown History amLODIPine [Norvasc] 10 mg PO DAILY 02/23/19 07/17/19 Unknown History Aspirin EC [Halfprin EC] 81 mg PO QDAY #90 tablet. 04/29/19 07/17/19 Unknown Rx Active Meds: Active Medications Amlodipine Besylate (Amlodipine) [address] [facility] Aspirin (Halfprin Ec) 81 mg PO QDAY [facility] Atorvastatin Calcium (Lipitor) [address] [facility] Clonidine HCl (Catapres) 0.2 mg PO BID [facility] Cyclobenzaprine HCl (Flexeril) 10 mg PO TID PRN PRN Reason: Muscle Spasm Ferrous Sulfate (Feosol) 325 mg PO BID [facility] Glimepiride (Amaryl) 4 mg PO QAMDIAB [facility] Insulin Human Lispro (Humalog) 0 unit SUB-Q ACHS [facility]; Protocol Miscellaneous Medication (Metformin Hcl [Metformin]) 1,000 mg PO BID [facility] Miscellaneous Medication (Triamterene-Hctz 75-50 Mg Tab) 1 tab PO DAILY [facility] Review of Systems All systems: negative (See HPI) Exam - Constitutional Vitals: Temp Pulse Resp BP Pulse Ox 97.5 F L 82 18 145/97 98 07/17/19 08:37 07/17/19 12:00 07/17/19 12:00 07/17/19 12:00 07/17/19 12:00 General appearance: Present: mild distress, well-nourished - EENT Eyes: Present: PERRL ENT: hearing intact, clear oral mucosa - Neck Neck: Present: supple, normal ROM - Respiratory Respiratory effort: normal Respiratory: bilateral: CTA - Cardiovascular Heart Sounds: Present: S1 & S2. Absent: rub, click - Extremities Extremities: pulses symmetrical, No edema Peripheral Pulses: within normal limits - Abdominal General gastrointestinal: Present: soft, non-tender, non-distended, normal bowel sounds Male genitourinary: Present: normal - Integumentary Integumentary: Present: clear, warm, dry - Musculoskeletal Musculoskeletal: gait normal, strength equal bilaterally - Psychiatric Psychiatric: appropriate mood/affect, intact judgment & insight - Neurologic Neurologic: CNII-XII intact, focal deficits (Left sided weakness, but it is mild), moves all extremities Results - Labs CBC & Chem 7: 07/17/19 09:06 07/17/19 09:06 Labs: Laboratory Last Values WBC 4.3 K/mm3 (4.5-11.0) L 07/17/19 09:06 RBC 4.78 M/mm3 (3.65-5.03) 07/17/19 09:06 Hgb 12.0 gm/dl (11.8-15.2) 07/17/19 09:06 Hct 36.4 % (35.5-45.6) 07/17/19 09:06 MCV 76 fl (84-94) L 07/17/19 09:06 MCH 25 pg (28-32) L 07/17/19 09:06 MCHC 33 % (32-34) 07/17/19 09:06 RDW 16.3 % (13.2-15.2) H 07/17/19 09:06 Plt Count 316 K/mm3 (140-440) 07/17/19 09:06 Lymph % (Auto) 26.9 % (13.4-35.0) 07/17/19 09:06 [place] % (Auto) 7.4 % (0.0-7.3) H 07/17/19 09:06 Eos % (Auto) 1.1 % (0.0-4.3) 07/17/19 09:06 Baso % (Auto) 0.8 % (0.0-1.8) 07/17/19 09:06 Lymph # 1.2 K/mm3 (1.2-5.4) 07/17/19 09:06 [place] # 0.3 K/mm3 (0.0-0.8) 07/17/19 09:06 Eos # 0.0 K/mm3 (0.0-0.4) 07/17/19 09:06 Baso # 0.0 K/mm3 (0.0-0.1) 07/17/19 09:06 Seg Neutrophils % 63.8 % (40.0-70.0) 07/17/19 09:06 Seg Neutrophils # 2.7 K/mm3 (1.8-7.7) 07/17/19 09:06 PT 13.3 Sec. (12.2-14.9) 07/17/19 09:06 INR 1.00 (0.87-1.13) 07/17/19 09:06 APTT 28.1 Sec. (24.2-36.6) 07/17/19 09:06 Thrombin Time 15.9 Sec. (15.1-19.6) 07/17/19 09:06 Sodium 139 mmol/L (137-145) 07/17/19 09:06 Potassium 4.0 mmol/L (3.6-5.0) 07/17/19 09:06 Chloride 101.0 mmol/L (98-107) 07/17/19 09:06 Carbon Dioxide 21 mmol/L (22-30) L 07/17/19 09:06 Anion Gap 21 mmol/L 07/17/19 09:06 BUN 14 mg/dL (9-20) 07/17/19 09:06 Creatinine 0.9 mg/dL (0.8-1.5) 07/17/19 09:06 Estimated GFR > 60 ml/min 07/17/19 09:06 BUN/Creatinine Ratio 16 % 07/17/19 09:06 Glucose 215 mg/dL (75-100) H 07/17/19 09:06 POC Glucose 218 (70-105) H 07/17/19 16:18 Calcium 9.7 mg/dL (8.4-10.2) 07/17/19 09:06 Magnesium 1.40 mg/dL (1.7-2.3) L 07/17/19 09:06 Total Creatine Kinase 119 units/L (55-170) 07/17/19 09:06 Troponin T < 0.010 ng/mL (0.00-0.029) 07/17/19 09:06 - Imaging and Cardiology CT Scan - head: image reviewed (No acute findings) Assessment and Plan Assessment and plan: 44-year-old man who presents to the hospital left-sided weakness, shooting pains down his left leg. Subacute CVA? , neurology consulted, Events occurred over 3 days ago, no need for permissive hypertension, has received aspirin, stroke education, observe for arrhythmia on telemetry, - --aspirin and high dose statin, check Lipid panel MRI brain, MRA head, carotid Dopplers, echo Bedside swallow evaluation was done and patient passed There is concern of cervical radiculopathy, he had a CT of his cervical spine in the past that was negative. Will obtain MR of cervical spine.-We will give him a trial of steroids and pain medications Shooting pains in his lower extremity may be due to neuropathy or sciatica. Trial of gabapentin. -Obtain UA Hypomagnesemia; replete IV Chronic dyspnea on exertion, -Patient denies chest pain today Cardiology consult -Chest x-ray negative -Of note patient had a normal cath in 2013, normal echo in 2015 per medical records. Diabetes Consistent carbohydrate diet, sliding scale insulin, check A1c DVT prophylaxis with SCDs.
[2019-07-17] MEDS ORDERED: DEXTROSE 50% IN WATER (25GM) 50 ML SYRINGE IV PRN (18:07)
[2019-07-17] MEDS ORDERED: ONDANSETRON 4 MG/2 ML INJ IV PRN (18:07)
[2019-07-17] MEDS ORDERED: ACETAMINOPHEN 325 MG TAB PO PRN (18:07)
--- NOTE | 2019-07-17 19:18 | XRay Report ---
CHEST 1 VIEW 6:56 PM INDICATION / CLINICAL INFORMATION: Shortness of breath. Tingling down left side. COMPARISON: 04/29/2019. FINDINGS: SUPPORT DEVICES: None. HEART / MEDIASTINUM: The heart size and pulmonary vasculature are normal. LUNGS / PLEURA: No significant pulmonary or pleural abnormality. No pneumothorax. ADDITIONAL FINDINGS: No significant additional findings. IMPRESSION: No acute abnormality or significant change. Signer Name: Aries Gooden MD Signed: 07/17/2019 7:14 PM Workstation Name: [id number]
[2019-07-17] MEDS: FERROUS SULFATE 325 MG TAB PO SCH (21:00)
[2019-07-17] MEDS: cloNIDine 0.2 MG TAB PO SCH (21:01)
[2019-07-17] MEDS: GABAPENTIN 100 MG CAP PO SCH (21:07)
[2019-07-17 21:28] LABS: BUN/Creatinine Ratio 16; Blood Urea Nitrogen 16 mg/dL (9-20); Calcium 9.1 mg/dL (8.4-10.2); Hemolysis Index 7
[2019-07-17 21:30] LABS: Bilirubin,Urine NEG (Negative); Blood,Urine NEG (Negative); Color,Urine Yellow (Yellow); Mucus,Urine 1+ /HPF; Urobilinogen,Urine < 2.0 mg/dL (<2.0)
[2019-07-17] MEDS ORDERED: cloNIDine 0.1 MG TAB PO SCH (22:00)
[2019-07-17] MEDS ORDERED: NON-FORMULARY EACH (Metformin Hcl [Metformin] 1,000 MG) PO SCH (22:00)
[2019-07-18] MEDS: GABAPENTIN 100 MG CAP PO SCH ×3 (06:37→22:41)
[2019-07-18] MEDS ORDERED: metFORMIN 500 MG TAB PO SCH (08:00)
[2019-07-18] MEDS: INSULIN LISPRO 100 UNIT/ML SUB-Q SCH ×4 (08:53→22:49)
[2019-07-18] MEDS: oxyCODONE /ACETAMINOPHEN 5-325MG TAB PO PRN ×2 (08:54→16:08)
[2019-07-18] MEDS ORDERED: LORazepam 2 MG/ML VIAL IM NR (09:00)
--- NOTE | 2019-07-18 09:56 | Consultation ---
History of Present Illness Consult date: 07/18/19 Requesting physician: ELSA POWELL Reason for Consult: left sided pain Chief complaint: Left leg pain History of present illness: 44-year-old male with a prior history of low back pain and walks with a cane Started having neck pain with radicular symptoms down the right arm about a raf h ago without inciting event or trauma and states about 5 days ago without inciting events the neck pain persisted but the the pain switched to his left side including his arm and leg but today's complaints are mainly about left leg pain which she has trouble moving secondary to pain which is hard to understand where the pain is coming from first he says it's coming from the neck down the left side and then when I ask about the lower back he agrees and says yet coming down from the lower back so not the best of historians Patient states she's had a stroke in the past that affected his left side but improved without any significant weakness he's had no cortical deficits no other stroke like deficits involving the face or speech or vision he had no loss of consciousness seizures or migraines he's been told he has neuropathy in the past but that's all he knows about it Prior history of low back pain diabetes hypertension and stroke Patient denies any bowel and bladder dysfunction subtle anesthesia loss of anal tone Patient states his walking has been affected He denies any mid back pain CT head negative which I reviewed personally and I agree with findings EKG normal sinus rhythm No coagulopathy on labs Most of his symptoms seem to be radicular starting at the neck for starting down the right side about a month ago that switching to the left side 5 days ago without inciting event or trauma or fall now his left side he feels his painful all the way down but the most excruciating pain is coming from his left lower leg and it's also numb He states his left leg feels numb but denies numbness in the left arm right arm or right leg he also denies a sensory level Patient denies any headache nausea vomiting double vision vertigo change of coordination confusion hallucinations Review of systems all other systems negative Family history negative for neurologic disease Social history no tobacco or drugs Medications and Allergies Allergies Allergy/AdvReac Type Severity Reaction Status Date / Time tomato [Tomato] Allergy Swelling Verified 02/23/19 14:38 Home Medications Medication Instructions Recorded Confirmed Last Taken Type cloNIDine [Catapres] 0.2 mg PO BID 11/27/17 07/17/19 Unknown History AtorvaSTATin [Lipitor] 20 mg PO DAILY 02/23/19 07/17/19 Unknown History Cyclobenzaprine [Flexeril] 10 mg PO TID PRN #20 tablet 02/23/19 07/17/19 Unknown Rx Ferrous Sulfate [Iron 325 MG] 325 mg PO BID 02/23/19 07/17/19 Unknown History Glimepiride [Amaryl] 4 mg PO DAILY 02/23/19 07/17/19 Unknown History Metformin HCl [metFORMIN] 1,000 mg PO BID 02/23/19 07/17/19 Unknown History Triamterene-Hctz 75-50 mg Tab 1 tab PO DAILY 02/23/19 07/17/19 Unknown History amLODIPine [Norvasc] 10 mg PO DAILY 02/23/19 07/17/19 Unknown History Aspirin EC [Halfprin EC] 81 mg PO QDAY #90 tablet. 04/29/19 07/17/19 Unknown Rx Active Meds: Active Medications Acetaminophen (Tylenol) 650 mg PO Q4H PRN PRN Reason: Pain MILD(1-3)/Fever >100.5/[place] Amlodipine Besylate (Amlodipine) 10 mg PO DAILY [facility] Aspirin (Halfprin Ec) 81 mg PO QDAY [facility] Atorvastatin Calcium (Lipitor) 20 mg PO QHS [facility] Last Admin: 07/17/19 22:10 Dose: 20 mg Documented by: Clonidine HCl (Catapres) 0.2 mg PO BID [facility] Last Admin: 07/17/19 21:01 Dose: 0.2 mg Documented by: Cyclobenzaprine HCl (Flexeril) 10 mg PO TID PRN PRN Reason: Muscle Spasm Dextrose (D50w (25gm) Syringe) 50 ml IV Q30MIN PRN; Protocol PRN Reason: Hypoglycemia Ferrous Sulfate (Feosol) 325 mg PO BID [facility] Last Admin: 07/17/19 21:00 Dose: 325 mg Documented by: Gabapentin (Gabapentin) 100 mg PO Q8HR [facility] Last Admin: 07/18/19 06:37 Dose: Not Given Documented by: Glimepiride (Amaryl) 4 mg PO QAMDIAB [facility] Insulin Human Lispro (Humalog) 0 unit SUB-Q ACHS [facility]; Protocol Last Admin: 07/18/19 08:53 Dose: Not Given Documented by: Lorazepam (Ativan) 1 mg IM [employer] NR Stop: 07/18/19 18:00 Metformin HCl (Glucophage) 100 mg PO BIDDIAB [facility] Ondansetron HCl (Zofran) 4 mg IV Q8H PRN PRN Reason: Nausea And Vomiting Oxycodone/Acetaminophen (Percocet 5/325) 1 tab PO Q6H PRN PRN Reason: Pain, Moderate (4-6) Last Admin: 07/18/19 08:54 Dose: 1 tab Documented by: Sodium Chloride (Sodium Chloride Flush Syringe 10 Ml) 10 ml IV BID [facility] Last Admin: 07/17/19 21:01 Dose: 10 ml Documented by: Sodium Chloride (Sodium Chloride Flush Syringe 10 Ml) 10 ml IV PRN PRN PRN Reason: LINE FLUSH Sodium Chloride (Sodium Chloride Flush Syringe 10 Ml) 10 ml IV PRN PRN PRN Reason: LINE FLUSH Sodium Chloride (Sodium Chloride Flush Syringe 10 Ml) 10 ml IV PRN PRN PRN Reason: LINE FLUSH Triamterene/HCTZ (Maxzide-25) 2 each PO QAM [facility] Physical Examination - Vital Signs Vital Signs: Vital Signs Temp Pulse Resp BP Pulse Ox 97.5 F L 77 16 138/93 95 07/17/19 08:37 07/17/19 08:37 07/17/19 08:37 07/17/19 08:37 07/17/19 08:37 Awake and alert and oriented 4 no aphasia and no dysarthria no agnosia No double vision PERRLA VFS EOMI Tongue is midline no discharge nose or ears Neck is supple Abdomen soft skin intact pulses good to all limbs All cranial nerves tested all cranial nerves are intact. Sensation over the face No sensory level over the body In the upper extremities 5 out of 5 strength sensory is intact in the upper extremities and the lower extremities right lower extremity 5 out of 5 strength of the left lower extremities difficult to assess strengths secondary to pain but patient cannot lift the leg off of the bed and decreased light touch diffusely down the left leg starting at the upper thigh Tone seems symmetrical but moving the left leg around is very painful Reflexes are 1+ in the upper extremity symmetrical but in the lower extremities right patellar reflex is about 2/2 but the left patellar reflex seems to be 0/2 No coordination issues with finger-nose in the upper extremities bilateral no extra movements no cerebellar signs Large strong body habitus Results - Laboratory Findings CBC and BMP: 07/17/19 09:06 07/17/19 20:50 Abnormal Lab Findings: Abnormal Labs 07/17/19 07/17/19 07/17/19 09:06 09:06 09:06 WBC 4.3 L MCV 76 L MCH 25 L RDW 16.3 H [place] % (Auto) 7.4 H Sodium Potassium Carbon Dioxide 21 L Glucose 215 H POC Glucose Magnesium 1.40 L Ur Specific [place] 07/17/19 07/17/19 07/17/19 16:18 20:50 21:00 WBC MCV MCH RDW [place] % (Auto) Sodium 136 L Potassium 3.4 L Carbon Dioxide Glucose 295 H POC Glucose 218 H Magnesium Ur Specific [place] 1.031 H 07/17/19 07/18/19 21:26 07:53 WBC MCV MCH RDW [place] % (Auto) Sodium Potassium Carbon Dioxide Glucose POC Glucose 284 H 193 H Magnesium Ur Specific [place] Assessment and Plan Concerning for possible radicular compression neuropathy localizing to the neck starting with right-sided pain down the arm then switching to the left side now his pain is left arm but mainly the left lower extremity which also shows weakness and numbness on exam Differential diagnosis thalamic pain syndrome less likely because to explain that patient would have had a stroke in the left thalamus around April and May and then a stroke in the right thalamus 5 days ago , all within 2 month s No recent trauma a month ago fall or inciting event to start the pain at the neck and go down the right side and when it switched to the left side there was no other inciting event or provocation trauma or fall History of chronic low back pain likely bulging disc disease multi-level History of stroke left side which was recovering so there is always a concern the patient has had a thalamic stroke which can cause a abnormal pain syndrome that seeing that pain has switched from the right to the left this is likely going to be a structural disease process No bowel and bladder involvement no loss of anal tone no sensory level no saddle anesthesia Reflexes are not symmetrical in the lower extremity Check MRI brain along with C, T and L-spine. PT OT Differential diagnosis includes diabetic amyotrophy or lumbar plexitis Check H A1c along with lipids Continued telemetry
[2019-07-18] MEDS: ASPIRIN EC 81 MG TAB PO SCH (09:57)
[2019-07-18] MEDS: TRIAMTER/HCTZ 37.5-25 MG TAB PO SCH (09:57)
[2019-07-18] MEDS: amLODIPine 10 MG TAB PO SCH (09:57)
[2019-07-18] MEDS: FERROUS SULFATE 325 MG TAB PO SCH ×2 (09:58→22:41)
[2019-07-18] MEDS: cloNIDine 0.2 MG TAB PO SCH ×2 (09:58→22:41)
[2019-07-18] MEDS ORDERED: TRIAMTERENE HCTZ PO SCH (10:00)
[2019-07-18] MEDS ORDERED: ASPIRIN 81 MG TAB CHEW PO SCH (10:00)
--- NOTE | 2019-07-18 10:10 | Consultation ---
History of Present Illness Consult date: 07/18/19 Consult reason: chest pain, congestive heart failure History of present illness: This is a 44-year old male who presents to this hospital with reports of left lower extremity numbness and weakness. Patient gives a history of hypertension, diabetes, sleep apnea, non compliant with Cpap and prior CVA. He uses a cane to assist with ambulation. There is no history of coronary artery disease. In fact, in 2013 he underwent a cardiac catheterization that shows normal coronaries, ejection fraction 65%. Patient denies chest pain, unusual shortness of breath and palpitations. Head CT scan reports no acute intracranial abnormalities. Chest x-ray is negative. 12 lead ECG is benign, normal sinus rhythm. Medications and Allergies Allergies Allergy/AdvReac Type Severity Reaction Status Date / Time tomato [Tomato] Allergy Swelling Verified 02/23/19 14:38 Home Medications Medication Instructions Recorded Confirmed Last Taken Type cloNIDine [Catapres] 0.2 mg PO BID 11/27/17 07/17/19 Unknown History AtorvaSTATin [Lipitor] 20 mg PO DAILY 02/23/19 07/17/19 Unknown History Cyclobenzaprine [Flexeril] 10 mg PO TID PRN #20 tablet 02/23/19 07/17/19 Unknown Rx Ferrous Sulfate [Iron 325 MG] 325 mg PO BID 02/23/19 07/17/19 Unknown History Glimepiride [Amaryl] 4 mg PO DAILY 02/23/19 07/17/19 Unknown History Metformin HCl [metFORMIN] 1,000 mg PO BID 02/23/19 07/17/19 Unknown History Triamterene-Hctz 75-50 mg Tab 1 tab PO DAILY 02/23/19 07/17/19 Unknown History amLODIPine [Norvasc] 10 mg PO DAILY 02/23/19 07/17/19 Unknown History Aspirin EC [Halfprin EC] 81 mg PO QDAY #90 tablet. 04/29/19 07/17/19 Unknown Rx Active Meds: Active Medications Acetaminophen (Tylenol) 650 mg PO Q4H PRN PRN Reason: Pain MILD(1-3)/Fever >100.5/[place] Amlodipine Besylate (Amlodipine) 10 mg PO DAILY [facility] Last Admin: 07/18/19 09:57 Dose: 10 mg Documented by: Aspirin (Halfprin Ec) 81 mg PO QDAY [facility] Last Admin: 07/18/19 09:57 Dose: 81 mg Documented by: Atorvastatin Calcium (Lipitor) 20 mg PO QHS [facility] Last Admin: 07/17/19 22:10 Dose: 20 mg Documented by: Clonidine HCl (Catapres) 0.2 mg PO BID [facility] Last Admin: 07/18/19 09:58 Dose: 0.2 mg Documented by: Cyclobenzaprine HCl (Flexeril) 10 mg PO TID PRN PRN Reason: Muscle Spasm Dextrose (D50w (25gm) Syringe) 50 ml IV Q30MIN PRN; Protocol PRN Reason: Hypoglycemia Ferrous Sulfate (Feosol) 325 mg PO BID [facility] Last Admin: 07/18/19 09:58 Dose: 325 mg Documented by: Gabapentin (Gabapentin) 100 mg PO Q8HR [facility] Last Admin: 07/18/19 06:37 Dose: Not Given Documented by: Glimepiride (Amaryl) 4 mg PO QAMDIAB [facility] Insulin Human Lispro (Humalog) 0 unit SUB-Q ACHS [facility]; Protocol Last Admin: 07/18/19 08:53 Dose: Not Given Documented by: Lorazepam (Ativan) 1 mg IM [facility] NR Stop: 07/18/19 18:00 Metformin HCl (Glucophage) 100 mg PO BIDDIAB [facility] Ondansetron HCl (Zofran) 4 mg IV Q8H PRN PRN Reason: Nausea And Vomiting Oxycodone/Acetaminophen (Percocet 5/325) 1 tab PO Q6H PRN PRN Reason: Pain, Moderate (4-6) Last Admin: 07/18/19 08:54 Dose: 1 tab Documented by: Sodium Chloride (Sodium Chloride Flush Syringe 10 Ml) 10 ml IV BID [facility] Last Admin: 07/18/19 09:59 Dose: 10 ml Documented by: Sodium Chloride (Sodium Chloride Flush Syringe 10 Ml) 10 ml IV PRN PRN PRN Reason: LINE FLUSH Sodium Chloride (Sodium Chloride Flush Syringe 10 Ml) 10 ml IV PRN PRN PRN Reason: LINE FLUSH Sodium Chloride (Sodium Chloride Flush Syringe 10 Ml) 10 ml IV PRN PRN PRN Reason: LINE FLUSH Triamterene/HCTZ (Maxzide-25) 2 each PO QAM [facility] Last Admin: 07/18/19 09:57 Dose: 2 each Documented by: Physical Examination Vital Signs Temp Pulse Resp BP Pulse Ox 97.5 F L 77 16 138/93 95 07/17/19 08:37 07/17/19 08:37 07/17/19 08:37 07/17/19 08:37 07/17/19 08:37 General appearance: no acute distress HEENT: Positive: PERRL Neck: Positive: trachea midline Cardiac: Positive: Reg Rate and Rhythm Lungs: Positive: Decreased Breath Sounds Neuro: Positive: Grossly Intact, Weakness Extremities: Absent: edema Results 07/17/19 09:06 07/17/19 20:50 Comprehensive Metabolic Panel 07/17/19 07/17/19 Range/Units 09:06 20:50 Sodium 139 136 L (137-145) mmol/L Potassium 4.0 3.4 L (3.6-5.0) mmol/L Chloride 101.0 98.9 (98-107) mmol/L Carbon Dioxide 21 L 22 (22-30) mmol/L BUN 14 16 (9-20) mg/dL Creatinine 0.9 1.0 (0.8-1.5) mg/dL Glucose 215 H 295 H (75-100) mg/dL Calcium 9.7 9.1 (8.4-10.2) mg/dL
--- NOTE | 2019-07-18 10:43 | Discharge Summary ---
Providers - Providers Date of Admission: 07/17/19 12:04 Attending physician: ELSA POWELL MD 07/17/19 Consult to Cardiac Rehabilitation [CONS] Routine Reason For Exam: Phase I Consult to Physician [CONS] Routine Comment: Consulting Provider: EMELIA JOHNSON Physician Instructions: Reason For Exam: cp and chf 07/17/19 16:09 Consult to Dietitian/Nutrition [CONS] Routine Physician Instructions: Reason For Exam: Diabetic teaching Reason for Consult: Diet education 07/17/19 18:07 Consult to Physician [CONS] Routine Comment: Consulting Provider: EUGENE ARAYA Physician Instructions: Reason For Exam: cva Occupational Therapy Evaluate and Treat [CONS] Routine Comment: Reason For Exam: Neuro deficits Physical Therapy Evaluation and Treat [CONS] Routine Comment: Reason For Exam: Neuro deficits [facility] Hospital course: 44-year-old man who presents to the hospital left-sided weakness, shooting pains down his left leg. Subacute CVA? , neurology consulted, Events occurred over 3 days ago, no need for permissive hypertension, has received aspirin, stroke education, observe for arrhythmia on telemetry, - --aspirin and high dose statin, check Lipid panel MRI brain, MRA head, carotid Dopplers, echo Bedside swallow evaluation was done and patient passed There is concern of cervical radiculopathy, he had a CT of his cervical spine in the past that was negative. Will obtain MR of cervical spine.-We will give him a trial of steroids and pain medications Shooting pains in his lower extremity may be due to neuropathy or sciatica. Trial of gabapentin. -Obtain UA Hypomagnesemia; replete IV Chronic dyspnea on exertion, -Patient denies chest pain today Cardiology consult -Chest x-ray negative -Of note patient had a normal cath in 2013, normal echo in 2015 per medical records. Diabetes Consistent carbohydrate diet, sliding scale insulin, check A1c DVT prophylaxis with SCDs. Disposition: - TO HOME OR SELFCARE Time spent for discharge: 33 mins Core Measure Documentation - Palliative Care Palliative Care/ Comfort Measures: Not Applicable - Core Measures Any of the following diagnoses?: none Exam - Constitutional Vitals: Temp Pulse Resp BP Pulse Ox 97.8 F 62 16 164/107 96 07/18/19 04:41 07/18/19 09:58 07/18/19 04:41 07/18/19 10:00 07/18/19 08:36 General appearance: Present: no acute distress, well-nourished - EENT Eyes: Present: PERRL ENT: hearing intact, clear oral mucosa - Neck Neck: Present: supple, normal ROM - Respiratory Respiratory effort: normal Respiratory: bilateral: CTA - Cardiovascular Heart Sounds: Present: S1 & S2. Absent: rub, click - Extremities Extremities: pulses symmetrical, No edema Peripheral Pulses: within normal limits - Abdominal General gastrointestinal: Present: soft, non-tender, non-distended, normal bowel sounds Male genitourinary: Present: normal - Integumentary Integumentary: Present: clear, warm, dry - Musculoskeletal Musculoskeletal: left sided weakness - Psychiatric Psychiatric: appropriate mood/affect, intact judgment & insight - Neurologic Neurologic: CNII-XII intact, moves all extremities Plan Follow up with: HOLLY COLLINS MD [Primary Care Provider] - 3-5 Days Prescriptions: methylPREDNISolone [Medrol] 4 mg PO BID #10 tablet
[2019-07-18 11:37] LABS: BUN/Creatinine Ratio 14; Blood Urea Nitrogen 10 mg/dL (9-20); Calcium 8.9 mg/dL (8.4-10.2); Chol/HDL Ratio 3.94 %; HDL Cholesterol 34 mg/dL (40-59); Hemolysis Index 3; LDL Cholesterol,Direct 93 mg/dL (50-130)
--- NOTE | 2019-07-18 12:14 | Vascular Lab Report ---
"DUPLEX DOPPLER ULTRASOUND CAROTID, BILATERAL INDICATION: stroke. COMPARISON: None available. FINDINGS: RIGHT CAROTID: No significant atherosclerotic plaque. CCA velocity: 55 cm/sec. ICA peak systolic velocity: 55 cm/sec. ICA/CCA PSV Ratio: 1.0. Right Vertebral Artery: Antegrade flow. LEFT CAROTID: No significant atherosclerotic plaque. CCA velocity: 44 cm/sec. ICA peak systolic velocity: 73 cm/sec. ICA/CCA PSV Ratio: 1.7. Left Vertebral Artery: Antegrade flow. IMPRESSION: 1. Right Internal Carotid Artery: Less than 50% diameter stenosis. 2. Left Internal Carotid Artery: Less than 50% diameter stenosis. Velocity criteria are extrapolated from diameter data as defined by the Society of Radiologists in Ul trasound Consensus Conference, Radiology 2003; 229;340-346. Degree of || ICA PSV || Plaque || ICA/CCA Stenosis (%) || (cm/sec) || estimate (%) || PSV Ratio - Normal...............<125..............None.................<2.0 - <50....................<125..............<50....................<2.0 - 50-69................125-230.........>50....................2.0-4.0 - >70 but <100....>230..............>50....................>4.0 - Near...................High, low, .....visible................variable occlusion or none - Total...................None.............visible;................N/A occlusion no lumen Signer Name: Raj Leyva MD Signed: 07/18/2019 12:09 PM Workstation Name: [id number]"
[2019-07-18] MEDS: GLIMEPIRIDE 4 MG TAB PO SCH (13:31)
[2019-07-18] MEDS ORDERED: LORazepam 2 MG/ML VIAL IM STA (13:50)
--- NOTE | 2019-07-18 14:50 | Magnetic Resonance Report ---
MRI BRAIN WITHOUT CONTRAST INDICATION / CLINICAL INFORMATION: stroke. TECHNIQUE: Multisequence, multiplanar images were obtained. COMPARISON: CT head dated 07/17/2019 FINDINGS: CEREBRAL and CEREBELLAR HEMISPHERES: There is suggestion of a subtle 5 mm focus of diffusion restrict ion in the left inferior mckenna on diffusion image 10. There is decreased signal in this area on the AD C map. This could represent a subacute ischemic infarct. Please correlate with the patient's clinical presentation. No other areas of diffusion restriction are identified. Minimal nonspecific chronic wh ite matter changes are noted bilaterally. No chronic infarct. No hemorrhage, mass, mass effect or ext ra-axial fluid collection. VENTRICLES: Normal in size and configuration for age. VISUALIZED ORBITS: No significant abnormality. VISUALIZED PARANASAL SINUSES: Moderate to large mucous retention cysts are noted in the inferior maxi llary sinuses bilaterally. The remaining sinuses are well-aerated. ADDITIONAL FINDINGS: None. IMPRESSION: Question a tiny subacute ischemic infarct in the left inferior mckenna as described above. Signer Name: Juan Duran Jr, MD Signed: 07/18/2019 2:46 PM Workstation Name: [id number]
[2019-07-18] MEDS: methylPREDNISolone 4 MG TAB PO SCH ×2 (15:52→22:41)
[2019-07-18] MEDS: metFORMIN 500 MG TAB PO SCH (16:04)
--- NOTE | 2019-07-18 17:25 | Magnetic Resonance Report ---
MRI CERVICAL SPINE WITHOUT CONTRAST INDICATION / CLINICAL INFORMATION: concern cervical radiculopathy. TECHNIQUE: Multisequence, multiplanar images of the cervical spine were obtained. COMPARISON: The study is compared to the previous CT cervical spine of 04/29/2019. FINDINGS: CRANIOCERVICAL JUNCTION:No significant abnormality. ALIGNMENT: There is no significant developing spondylolisthesis involving the cervical spine. VERTEBRAE:There is no edema involving the cervical vertebral bodies. VISUALIZED SPINAL CORD: The motion significantly degrades the image quality and appears evaluation of the cervical cord at. No definitive epidural collections are appreciated at.. [id number] ANALYSIS: C2-3: No significant disc abnormality, spinal canal stenosis, or neural foraminal stenosis. C3-4: The broad-based disc bulge appears to minimally flatten the left ventral cord at. The spondylos is is greater on the left with effacement of the left lateral recess and moderate to marked left neur al foraminal narrowing. Moderate narrowing is seen on the right. C4-5: The spondylosis mildly flattens the ventral cord at. Additionally, there is encroachment on the lateral recesses with marked left and moderate to marked right neural foraminal narrowing. C5-6: The spondylosis effaces the ventral subarachnoid space and appears to minimally flatten the arnaldo tral cord. There is again encroachment on the lateral recesses with marked neural foraminal narrowing , greater on the left. C6-7: There is a slight disc bulge without direct cord compression. There is moderate to neural robert inal narrowing, greater on the right. C7-T1: There is a slight disc bulge without direct cord compression. There is mild neural foraminal n arrowing bilaterally. PARASPINAL SOFT TISSUES: No significant abnormality. ADDITIONAL FINDINGS: None. IMPRESSION: 1. The motion degrades image quality. However, there are multilevel degenerative changes involving th e cervical spine with posterior spondylosis and significant neural foraminal narrowing as detailed ab ove. Signer Name: Sterling Houser MD Signed: 07/18/2019 5:21 PM Workstation Name: [id number]
[2019-07-19] MEDS: GABAPENTIN 100 MG CAP PO SCH ×3 (05:40→21:04)
--- NOTE | 2019-07-19 08:42 | Progress Note ---
Assessment and Plan Left lower extremity weakness Prior CVA Hypertension Sleep apnea noncompliant with Cpap Diabetes An echocardiogram this admission reports normal LV systolic function, EF 55-60%. Bubble study is negative. 2013 [facility]: normal coronaries, ejection fraction 65%. Recommendations: No active cardiac issues are demonstrated on clinical assessment, ECGs, laboratory values or chest x-ray. We will sign off. Subjective Date of service: 07/19/19 Interval history: Patient is resting in bed comfortably. No cardiac complaints. Objective Vital Signs Temp Pulse Resp BP Pulse Ox 07/19/19 05:07 97.4 F L 69 20 127/79 94 07/18/19 22:44 98.8 F 69 20 140/95 96 07/18/19 22:41 70 140/95 07/18/19 15:54 97.7 F 81 15 138/99 97 07/18/19 10:09 162/105 07/18/19 10:00 164/107 07/18/19 09:58 62 149/105 07/18/19 09:57 62 149/105 - Physical Examination General: No Apparent Distress HEENT: Positive: PERRL Neck: Positive: trachea midline Cardiac: Positive: Reg Rate and Rhythm Lungs: Positive: Decreased Breath Sounds Neuro: Positive: Grossly Intact, Weakness Extremities: Absent: edema - Labs and Meds Lipids 07/18/19 Range/Units 10:48 Triglycerides 136 (2-149) mg/dL Cholesterol 134 (50-199) mg/dL HDL Cholesterol 34 L (40-59) mg/dL Cholesterol/HDL Ratio 3.94 % Comprehensive Metabolic Panel 07/18/19 Range/Units 10:48 Sodium 138 (137-145) mmol/L Potassium 3.8 (3.6-5.0) mmol/L Chloride 101.5 (98-107) mmol/L Carbon Dioxide 22 (22-30) mmol/L BUN 10 (9-20) mg/dL Creatinine 0.7 L (0.8-1.5) mg/dL Glucose 200 H (75-100) mg/dL Calcium 8.9 (8.4-10.2) mg/dL
[2019-07-19] MEDS ORDERED: LORazepam 2 MG/ML VIAL IV PRN (10:00)
--- NOTE | 2019-07-19 10:14 | Progress Note ---
Assessment and Plan stroke acute/subacute isch L aranza, basilar perforators thrombus, lacunar, stable this would possibly account for R sided sx pt had over the past few weeks that have now resolved less likely cause of central pain syndrome CTA h/n echo neg for source or pfo carotids neg for high grade stenosis no recurrent strokes no a.fib anti plt statin bp control bg control tele 2. L sided > R sided radiculopathy like sx (resolved but right sided weakness may have been d/t prob 1. ARANZA stroke ), neck pain, numb weak L UE and painful numb weak LLE, stable MRI c spine reviewed tyree d/t degen. disc dis. buldging disc dis of cervical spine, structural dis process, multilevel this explains the patients radicular sx down the L and expected R side, though recent stroke uncovered may have been a contributing factor of weakness radiculopathy / compression neuropathy both central canal / cord and peripheral nerves will need neurosurg or ortho spine f/u avoid lifting above 15 lbs pain control LBP, L LE pain numb weakness, asymm reflexes, and subjective urinary issues, stable T and L spine MRI pending, no sensory level I am expecting similar structural dis findings in the lumbar spine as in the c spine radiculopathy / compression neuropathy of peripheral nerves PT OT fall precautions pain control no cause of central pain syndrome seen on the brain pt c spine findings would be expected to cause pain and discomfort and can progress to worsening weakness and sensory deficits / along w b/bl dysfunction Subjective Date of service: 07/19/19 Principal diagnosis: L sided weakness Interval history: no events overnight no neuro decline still c/o L sided weakness numbness mainly L LE, w pain associated from neck down the L side no loc no sz no fever no b/bl changes no saddle anesthesia no MITCHELL no n/v still c/o of neck pain w radic sx down mainly the L side still c/o LBP w L LE pain and weakness and numbness MRI b sugg of ARANZA stroke on the left , I agree there is diff/adc correlate , small basilar stroke MRI c spine sugg of multilevel BDD w abutment of cord MRI T , L pending ECHO no source of emboli, no pfo Carotids: no high grade stenosis asa and statin on board Objective - Exam Narrative Exam: Awake and alert and oriented 4 no aphasia no dysarthria no agnosia No double vision PERRLA VFF EOMI Tongue is midline Neck is supple All cranial nerves tested all cranial nerves are intact No sensory level over the body In the upper extremities 5 out of 5 strength sensory is intact and the lower extremities right lower extremity 5 out of 5 strength left lower extremities difficult to assess strengths secondary to pain but pat ient cannot lift the leg off of the bed decreased light touch diffusely down the left leg starting at the upper thigh Tone seems symmetrical but moving the left leg around is very painful Reflexes are 1+ in the upper extremity symmetrical but in the lower extremities right patellar reflex is about 2/2 but the left patellar reflex seems to be 0/2 - Vital Sign Vital Signs - 12hr 07/18/19 07/18/19 07/19/19 22:41 22:44 05:07 Temperature 98.8 F 97.4 F L Pulse Rate 70 69 69 Respiratory 20 20 Rate Blood Pressure 140/95 140/95 127/79 O2 Sat by Pulse 96 94 Oximetry - Laboratory Findings CBC and BMP: 07/17/19 09:06 07/18/19 10:48 Abnormal Lab Findings: Abnormal Labs 07/17/19 07/17/19 07/17/19 09:06 09:06 09:06 WBC 4.3 L MCV 76 L MCH 25 L RDW 16.3 H [place]w % (Auto) 7.4 H Sodium Potassium Carbon Dioxide 21 L Creatinine Glucose 215 H POC Glucose Hemoglobin A1c Magnesium 1.40 L HDL Cholesterol Ur Specific [place] 07/17/19 07/17/19 07/17/19 16:18 20:50 21:00 WBC MCV MCH RDW [place]w % (Auto) Sodium 136 L Potassium 3.4 L Carbon Dioxide Creatinine Glucose 295 H POC Glucose 218 H Hemoglobin A1c Magnesium HDL Cholesterol Ur Specific [place] 1.031 H 07/17/19 07/18/19 07/18/19 21:26 07:53 10:48 WBC MCV MCH RDW [place] % (Auto) Sodium Potassium Carbon Dioxide Creatinine 0.7 L Glucose 200 H POC Glucose 284 H 193 H Hemoglobin A1c Magnesium HDL Cholesterol 34 L Ur Specific [place] 07/18/19 07/18/19 07/18/19 10:48 16:24 22:56 WBC MCV MCH RDW [place] % (Auto) Sodium Potassium Carbon Dioxide Creatinine Glucose POC Glucose 161 H 221 H Hemoglobin A1c 10.2 H Magnesium HDL Cholesterol Ur Specific [place] 07/19/19 08:09 WBC MCV MCH RDW [place] % (Auto) Sodium Potassium Carbon Dioxide Creatinine Glucose POC Glucose 155 H Hemoglobin A1c Magnesium HDL Cholesterol Ur Specific [place]
--- NOTE | 2019-07-19 11:01 | Magnetic Resonance Report ---
MRI THORACIC SPINE WITHOUT CONTRAST HISTORY: Abnormal lower extremity reflexes, stroke COMPARISON: None. TECHNIQUE: Multiplane, multisequence non-contrast thoracic spine MRI performed. CONTRAST: None. FINDINGS: Alignment: Normal. Vertebrae:No significant abnormality. Visualized cord: No significant abnormality. T1-2: No significant disc abnormality, spinal canal or neural foraminal stenosis. T2-3: No significant disc abnormality, spinal canal or neural foraminal stenosis. T3-4: No significant disc abnormality, spinal canal or neural foraminal stenosis. T4-5: No significant disc abnormality, spinal canal or neural foraminal stenosis. T5-6: No significant disc abnormality, spinal canal or neural foraminal stenosis. T6-7: No significant disc abnormality, spinal canal or neural foraminal stenosis. T7-8: No significant disc abnormality, spinal canal or neural foraminal stenosis. T8-9: No significant disc abnormality, spinal canal or neural foraminal stenosis. T9-10: No significant disc abnormality, spinal canal or neural foraminal stenosis. T10-11: No significant disc abnormality, spinal canal or neural foraminal stenosis. T11-12: No significant disc abnormality, spinal canal or neural foraminal stenosis. Additional findings: None. IMPRESSION: No significant abnormality. MRI LUMBAR SPINE WITHOUT CONTRAST HISTORY: Low back pain and left leg numbness and weakness, stroke COMPARISON: None. TECHNIQUE: Multiplane, multisequence non-contrast lumbar spine MRI performed. CONTRAST: None. FINDINGS: Alignment: Normal. Vertebrae:No significant abnormality. Visualized cord: No significant abnormality. Conus terminates at L1. L1-2: No significant disc abnormality, spinal canal or neural foraminal stenosis. L2-3: No significant disc abnormality, spinal canal or neural foraminal stenosis. L3-4: No significant disc abnormality, spinal canal or neural foraminal stenosis. L4-5: No significant disc abnormality, spinal canal or neural foraminal stenosis. Mild bilateral face t arthropathy. L5-S1: No significant disc abnormality, spinal canal or neural foraminal stenosis. Mild bilateral fac et arthropathy. Left neural foraminal narrowing is estimated at 50% or greater. Additional findings: None. IMPRESSION: Mild facet arthropathy in the lower lumbar spine. Mild to moderate left neural foraminal narrowing at L5-S1. Signer Name: Juan Duran Jr, MD Signed: 07/19/2019 10:57 AM Workstation Name: [id number]
--- NOTE | 2019-07-19 11:50 | Cat Scan Report ---
CTA neck with and without contrast CLINICAL HISTORY: Cerebrovascular accident. Technique: Multiple contiguous postcontrast axial CT images of the neck were obtained at 0.63 mm inte rvals. 3 plane MIP reconstructions were produced. Precontrast localizing images were also performed. All CT scans at this location are performed using the CT dose reduction for ALARA by means of automat ed exposure control. FINDINGS: No previous exams are available for comparison. The carotid bifurcations are widely patent. There is no significant stenosis involving the internal carotid arteries by NASCET criteria. There i s some beam hardening artifact. However, the visualized centeno of the carotid arteries demonstrate ky rly smooth contour. 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 The right vertebral artery is clearly dominant without significant focal stenosis at. The arch of vessels appear unremarkable. IMPRESSION: There is no significant stenosis involving the carotid arteries by NASCET criteria. 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 Signer Name: Sterling Houser MD Signed: 07/19/2019 11:45 AM Workstation Name: [id number]
--- NOTE | 2019-07-19 11:55 | Cat Scan Report ---
CTA head with and without IV contrast. CLINICAL HISTORY: Cerebrovascular accident. Technique: Multiple contiguous postcontrast CT images of the head were obtained at 0.63 mm intervals. 3 plane MIP reconstructions were obtained. Precontrast localizing images were also performed. CT scan s at this location are performed using the CT dose reduction for ALACitizenside by means of automated exposure control. FINDINGS: There is mild calcification involving the distal internal carotid arteries without signific ant stenosis by NASCET criteria. There is also no focal narrowing involving the proximal anterior and middle cerebral artery ranges. 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 There is no focal stenosis involving the basilar artery. There is developmental origin of the left OVERLAY PLASTICIAN. There is no CTA evidence of intracranial aneurysm. The dural venous sinuses opacify with contrast. Th ere are prominent retention cysts within the maxillary and inferior right sphenoid sinuses. IMPRESSION: There is mild calcification involving the distal internal carotid arteries without significant stenos is. There is developmental origin of the left OVERLAY PLASTICIAN and hypoplasia of the left vertebral artery. Signer Name: Sterling Houser MD Signed: 07/19/2019 11:51 AM Workstation Name: [id number]
[2019-07-19] MEDS: amLODIPine 10 MG TAB PO SCH (13:02)
[2019-07-19] MEDS: cloNIDine 0.2 MG TAB PO SCH ×2 (13:03→21:03)
[2019-07-19] MEDS: FERROUS SULFATE 325 MG TAB PO SCH ×2 (13:03→21:04)
[2019-07-19] MEDS: ASPIRIN EC 81 MG TAB PO SCH (13:03)
[2019-07-19] MEDS: TRIAMTER/HCTZ 37.5-25 MG TAB PO SCH (13:04)
[2019-07-19] MEDS: methylPREDNISolone 4 MG TAB PO SCH ×2 (13:04→21:08)
[2019-07-19] MEDS: GLIMEPIRIDE 4 MG TAB PO SCH (13:05)
[2019-07-19] MEDS: metFORMIN 500 MG TAB PO SCH ×2 (13:07→18:49)
[2019-07-19] MEDS: INSULIN LISPRO 100 UNIT/ML SUB-Q SCH ×3 (13:08→18:27)
--- NOTE | 2019-07-19 14:03 | Progress Note ---
Subjective Date of service: 07/19/19 Principal diagnosis: L sided weakness Interval history: pt seen again, w/u CTA h/n and Lumbar Thoracic MRI reviewed Exam does not show any sixth or seventh nerve palsy I'm not picking up any cerebellar findings on the left And sensory exam is inconsistent, pt states his left leg is numb, but when I retest his L leg w LT and pp, he says denies any deficits, but when I ask is the L leg and R leg the same in term of sensory he say no sensory discrepancy may be d/t colloquial communications , pt in the end still feels my testing was different in the L leg MR T and L are neg for advanced canal stenosis or compression neuropathy/myelopathy CTa H/n are neg for high grade stenosis of post circulation, note the orgin INCOMING INSPECTOR no b/bl dysfunction no recurrent strokes no a.fib glu: remain elevated during stay HA1c 10+ --- L sided sx are likely localizing to c spine buldging disc dis/compression myelopathy and neuropathy (radiculopathy) L lower extremity sx are out of synchrony/not correlating to MRI T L findings, leaving the poss. of diabetic amyotrophy vs C spine compression, though no weight loss or autonomic dysfunction as best I can tell to support DM amyo. there was however a spread from R LE to L LE , what complicates things are 1., L mckenna stroke that wouldnt cause LE pain, 2. 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 stenosis C T L mri spine : shows need for f/u w NSU vs Spine ortho for possible intervention pain control stroke risk reducation mearsure , antiplt and statin tight BP control very tight BG control f/u EMG NCS some retrosp.studies but not all have shown benefit from steroids course I will start lyrica 100 bid can go up to 200 bid in one week analgesia PT OT f/u w neuro f/u w endocrine Objective - Vital Sign Vital Signs - 12hr 07/19/19 07/19/19 07/19/19 05:07 13:02 13:03 Temperature 97.4 F L Pulse Rate 69 87 87 Respiratory 20 Rate Blood Pressure 127/79 153/97 153/97 Blood Pressure [Left] O2 Sat by Pulse 94 Oximetry 07/19/19 13:14 Temperature 97.7 F Pulse Rate 87 Respiratory 18 Rate Blood Pressure Blood Pressure 153/97 [Left] O2 Sat by Pulse Oximetry - Laboratory Findings CBC and BMP: 07/17/19 09:06 07/18/19 10:48 Abnormal Lab Findings: Abnormal Labs 07/17/19 07/17/19 07/17/19 09:06 09:06 09:06 WBC 4.3 L MCV 76 L MCH 25 L RDW 16.3 H [place] % (Auto) 7.4 H Sodium Potassium Carbon Dioxide 21 L Creatinine Glucose 215 H POC Glucose Hemoglobin A1c Magnesium 1.40 L HDL Cholesterol Ur Specific [place] 07/17/19 07/17/19 07/17/19 16:18 20:50 21:00 WBC MCV MCH RDW [place] % (Auto) Sodium 136 L Potassium 3.4 L Carbon Dioxide Creatinine Glucose 295 H POC Glucose 218 H Hemoglobin A1c Magnesium HDL Cholesterol Ur Specific [place] 1.031 H 07/17/19 07/18/19 07/18/19 21:26 07:53 10:48 WBC MCV MCH RDW [place] % (Auto) Sodium Potassium Carbon Dioxide Creatinine 0.7 L Glucose 200 H POC Glucose 284 H 193 H Hemoglobin A1c Magnesium HDL Cholesterol 34 L Ur Specific [place] 07/18/19 07/18/19 07/18/19 10:48 16:24 22:56 WBC MCV MCH RDW [place] % (Auto) Sodium Potassium Carbon Dioxide Creatinine Glucose POC Glucose 161 H 221 H Hemoglobin A1c 10.2 H Magnesium HDL Cholesterol Ur Specific [place] 07/19/19 07/19/19 08:09 13:23 WBC MCV MCH RDW [place] % (Auto) Sodium Potassium Carbon Dioxide Creatinine Glucose POC Glucose 155 H 218 H Hemoglobin A1c Magnesium HDL Cholesterol Ur Specific [place]
--- NOTE | 2019-07-19 14:40 | Discharge Summary ---
Providers - Providers Date of Admission: 07/17/19 12:04 Attending physician: SHRUTHI MOLINA 07/17/19 Consult to Cardiac Rehabilitation [CONS] Routine Reason For Exam: Phase I 07/17/19 16:09 Consult to Dietitian/Nutrition [CONS] Routine Physician Instructions: Reason For Exam: Diabetic teaching Reason for Consult: Diet education 07/17/19 18:07 Consult to Physician [CONS] Routine Comment: Consulting Provider: EUGENE ARAYA Physician Instructions: Reason For Exam: cva Occupational Therapy Evaluate and Treat [CONS] Routine Comment: Reason For Exam: Neuro deficits Physical Therapy Evaluation and Treat [CONS] Routine Comment: Reason For Exam: Neuro deficits [facility] Condition: Good Disposition: DC-01 TO HOME OR SELFCARE Core Measure Documentation - Palliative Care Palliative Care/ Comfort Measures: Not Applicable Exam - Constitutional Vitals: Temp Pulse Resp BP Pulse Ox 97.7 F 87 18 153/97 94 07/19/19 13:14 07/19/19 13:14 07/19/19 13:14 07/19/19 13:14 07/19/19 05:07 Plan Follow up with: ELAN KEYSEMDEN MD BARBIE [Primary Care Provider] - 3-5 Days Prescriptions: methylPREDNISolone [Medrol] 4 mg PO BID #10 tablet
[2019-07-19] MEDS ORDERED: PREGABALIN 25 MG, PREGABALIN 75 MG PO SCH (15:00)
[2019-07-19 20:37] VITALS: BP 138/102
[2019-07-19] MEDS ORDERED: PREGABALIN 25 MG CAP PO SCH (21:00)
[2019-07-19] MEDS ORDERED: PREGABALIN 75 MG CAP PO SCH (21:00)
== END 2019-07-19 22:25 | disposition home or self-care (01) ==
LOC: ED 08:30 → 3A 12:04 → INTOOBSV 12:04 → 3A 12:33
PROVIDERS: ADMIT Internal Medicine; ATTEND Internal Medicine
DX: I63.9 Cerebral infarction, unspecified (principal); E83.42 Hypomagnesemia; R06.00 Dyspnea, unspecified; E11.9 Type 2 diabetes mellitus without complications; I10 Essential (primary) hypertension; K21.9 Gastro-esophageal reflux disease without esophagitis; E66.01 Morbid (severe) obesity due to excess calories; G89.29 Other chronic pain; M54.9 Dorsalgia, unspecified; M54.10 Radiculopathy, site unspecified; Z86.73 Personal history of transient ischemic attack (TIA), and cerebral infarction without residual deficits; Z79.82 Long term (current) use of aspirin; Z79.4 Long term (current) use of insulin; Z79.899 Other long term (current) drug therapy; Z91.018 Allergy to other foods; Z88.8 Allergy status to other drugs, medicaments and biological substances; Z68.41 Body mass index [BMI] 40.0-44.9, adult
CPT/HCPCS: 36415; 70450; 70496; 70498; 70551; 71045; 72141; 72146; 72148; 80048; 80061; 81001; 82550; 82962; 83036; 83735; 84484; 85025; 85610; 85652; 85670; 85730; 87086; 93005; 93010; 93306; 93880; 96365; 96366; 96372; 96375; 97163; 99284; A9270; G0378; J2060; J3475; J7509; Q9967; J1815

== ENCOUNTER 2020-03-13 22:30 | Emergency (ER) | payer SELFPAY ==
[2020-03-13] MEDS ORDERED: ASPIRIN 325 MG TAB PO ONE (23:03)
[2020-03-13 23:20] LABS: Basophils % (Auto) 0.6 % (0.0-1.8); Eosinophils # (Auto) 0.1 K/mm3 (0.0-0.4); Eosinophils % (Auto) 1.3 % (0.0-4.3); Hematocrit 36.4 % (35.5-45.6); Hemoglobin 12.4 gm/dl (11.8-15.2); Lymphocytes # (Auto) 1.5 K/mm3 (1.2-5.4); Lymphocytes % (Auto) 19.1 % (13.4-35.0); Mean Corpuscular HGB Conc 34 % (32-34); Mean Corpuscular Volume 78 fl (84-94); Monocytes # (Auto) 0.7 K/mm3 (0.0-0.8); Monocytes % (Auto) 8.9 % (0.0-7.3); Platelet Count 268 K/mm3 (140-440); Red Blood Count 4.64 M/mm3 (3.65-5.03); Red Cell Distribution Width 15.4 % (13.2-15.2)
--- NOTE | 2020-03-13 23:35 | XRay Report ---
CHEST 1 VIEW INDICATION: Chest Pain. COMPARISON: 11/30/2019. FINDINGS: Support devices: None. Heart: Within normal limits. Lungs/Pleura: No acute air space or interstitial disease. Additional findings: None. IMPRESSION: No acute abnormality. Signer Name: Jonathan Albarado MD Signed: 03/13/2020 11:31 PM Workstation Name: [id number]
[2020-03-13 23:43] LABS: BUN/Creatinine Ratio 16; Blood Urea Nitrogen 33 mg/dL (9-20); Calcium 10.6 mg/dL (8.4-10.2); Hemolysis Index 14
--- NOTE | 2020-03-14 00:35 | Emergency Department Report ---
ED General Adult HPI - General Chief complaint: Chest Pain Stated complaint: CHEST PAIN/SPIDER BITE LEFT SIDE Time Seen by Provider: 03/14/20 00:17 Source: patient Mode of arrival: Ambulatory Limitations: No Limitations - History of Present Illness Initial comments: 44-year-old male with history of hypertension, diabetes, presents the ED for evaluation. Patient states he noticed a small quarter size area of swelling on his left lower abdomen. Patient states he is unsure where it came from or how long it has been there. Patient states he thought it may be a spider bite. However, patient does not recall feeling anything bite him. He also denies pain or itching to the area. Patient reports after he noticed this area of swelling he began having pain diffuse chest pain and headache while at rest. He denies any aggravating or alleviating factors. He also reports some associated mild shortness of breath that has now resolved. Patient denies fever, nausea or vomiting, diaphoresis, leg swelling. Patient states that chest pain is across his entire chest, unable to characterize the pain. Pain is nonradiating. Patient states he decided to come to the emergency room because he was unsure if he may have "poison going through my veins" from a possible spider bite. -: hour(s) (3) Location: head, chest, abdomen Radiation: non-radiation Quality: other (Unable to characterize the pain) Consistency: constant Improves with: none Worsens with: none Associated Symptoms: chest pain, cough, headaches, shortness of breath. denies: fever/chills, nausea/vomiting - Related Data Home Medications Medication Instructions Recorded Confirmed Last Taken cloNIDine [Catapres] 0.2 mg PO BID 11/27/17 07/17/19 Unknown AtorvaSTATin [Lipitor] 20 mg PO DAILY 02/23/19 07/17/19 Unknown Ferrous Sulfate [Iron 325 MG] 325 mg PO BID 02/23/19 07/17/19 Unknown Glimepiride [Amaryl] 4 mg PO DAILY 02/23/19 07/17/19 Unknown Metformin HCl [metFORMIN] 1,000 mg PO BID 02/23/19 07/17/19 Unknown Triamterene-Hctz 75-50 mg Tab 1 tab PO DAILY 02/23/19 07/17/19 Unknown amLODIPine 10 mg PO DAILY 02/23/19 07/17/19 Unknown Previous Rx's Medication Instructions Recorded Last Taken Type Cyclobenzaprine [Flexeril 10 MG 10 mg PO TID PRN #20 tablet 02/23/19 Unknown Rx TAB] Aspirin EC [Halfprin EC] 81 mg PO QDAY #90 tablet. 04/29/19 Unknown Rx methylPREDNISolone [Medrol] 4 mg PO BID #10 tablet 07/18/19 Unknown Rx Pregabalin [Lyrica] 100 mg PO BID #60 capsule 07/19/19 Unknown Rx Butalb/Acetamin/Caff 50-325-40 1 tab PO Q6HR PRN #10 tab 03/14/20 Unknown Rx [Fioricet] Allergies Allergy/AdvReac Type Severity Reaction Status Date / Time tomato [Tomato] Allergy Swelling Verified 02/23/19 14:38 ED Review of Systems ROS: Stated complaint: CHEST PAIN/SPIDER BITE LEFT SIDE Other details as noted in HPI Comment: All other systems reviewed and negative Constitutional: denies: chills, fever Respiratory: cough, shortness of breath Cardiovascular: chest pain Gastrointestinal: denies: abdominal pain, nausea, vomiting Skin: as per HPI Neurological: headache ED Past Medical Hx - Past Medical History Previous Medical History?: Yes Hx Hypertension: Yes Hx CVA: Yes Hx Congestive Heart Failure: No Hx Diabetes: Yes Hx GERD: Yes Hx Headaches / Migraines: Yes Hx Asthma: No Hx COPD: No Additional medical history: sleep apnea, hiatal hernia. chronic back pain, "heart problems" - Surgical History Additional Surgical History: Right upper extremity surgery secondary to trauma, cardiac catheterization - Social History Smoking Status: Never Smoker Substance Use Type: Alcohol - Medications Home Medications: Home Medications Medication Instructions Recorded Confirmed Last Taken Type cloNIDine [Catapres] 0.2 mg PO BID 11/27/17 07/17/19 Unknown History AtorvaSTATin [Lipitor] 20 mg PO DAILY 02/23/19 07/17/19 Unknown History Cyclobenzaprine [Flexeril 10 MG 10 mg PO TID PRN #20 tablet 02/23/19 07/17/19 Unknown Rx TAB] Ferrous Sulfate [Iron 325 MG] 325 mg PO BID 02/23/19 07/17/19 Unknown History Glimepiride [Amaryl] 4 mg PO DAILY 02/23/19 07/17/19 Unknown History Metformin HCl [metFORMIN] 1,000 mg PO BID 02/23/19 07/17/19 Unknown History Triamterene-Hctz 75-50 mg Tab 1 tab PO DAILY 02/23/19 07/17/19 Unknown History amLODIPine 10 mg PO DAILY 02/23/19 07/17/19 Unknown History Aspirin EC [Halfprin EC] 81 mg PO QDAY #90 tablet. 04/29/19 07/17/19 Unknown Rx methylPREDNISolone [Medrol] 4 mg PO BID #10 tablet 07/18/19 Unknown Rx Pregabalin [Lyrica] 100 mg PO BID #60 capsule 07/19/19 Unknown Rx Butalb/Acetamin/Caff 50-325-40 1 tab PO Q6HR PRN #10 tab 03/14/20 Unknown Rx [Fioricet] ED Physical Exam - General Limitations: No Limitations General appearance: alert, in no apparent distress - Head Head exam: Present: atraumatic, normocephalic - Eye Eye exam: Present: normal appearance, EOMI - ENT ENT exam: Present: normal exam - Neck Neck exam: Present: normal inspection - Respiratory Respiratory exam: Present: normal lung sounds bilaterally. Absent: respiratory distress - Cardiovascular Cardiovascular Exam: Present: regular rate, normal rhythm - GI/Abdominal GI/Abdominal exam: Present: soft, other (Small quarter sized raised area of mild swelling on the left abdominal wall, nontender, no erythema, no induration, no fluctuance, no bruising present). Absent: distended, tenderness - Extremities Exam Extremities exam: Present: normal inspection. Absent: pedal edema, calf tenderness - Neurological Exam Neurological exam: Present: alert, oriented X3 - Psychiatric Psychiatric exam: Present: normal affect, normal mood - Skin Skin exam: Present: warm, dry, intact, normal color ED Course Vital Signs 03/14/20 03/14/20 03/14/20 00:23 00:30 00:45 Pulse Rate 98 H 94 H Respiratory 16 20 Rate Blood Pressure 128/96 136/89 140/93 O2 Sat by Pulse 97 94 95 Oximetry 03/14/20 03/14/20 01:00 01:15 Pulse Rate 93 H 94 H Respiratory 17 20 Rate Blood Pressure 124/85 138/96 O2 Sat by Pulse 93 96 Oximetry ED Medical Decision Making - Lab Data Result diagrams: 03/13/20 23:05 03/13/20 23:05 - EKG Data -: EKG Interpreted by Fl EKG shows normal: sinus rhythm, axis, intervals, QRS complexes, ST-T waves Rate: tachycardia (rate 105) - Radiology Data Radiology results: report reviewed, image reviewed - Medical Decision Making 44-year-old male with chest pain, headache. EKG unremarkable, no ST changes. Troponin is negative x2. No neuro deficits on exam. Lesion on abdomen does not appear to be infection. Labs unremarkable except for some renal insufficiency. However patient does have history of hypertension and diabetes, so this may contribute. Patient was still given 1 L bolus of IV fluids. He has been advised to allergy. Information will be given. Patient is feeling much better at this time following GI cocktail and Fioricet. He reports resolution of chest pain and headache. Vital signs stable. Patient will be discharged at this time. Return precautions given. Critical care attestation.: If time is entered above; I have spent that time in minutes in the direct care of this critically ill patient, excluding procedure time. ED Disposition Clinical Impression: Chest pain, Acute headache, Renal insufficiency Disposition: - TO HOME OR SELFCARE Is pt being admited?: No Condition: Stable Instructions: Chest Pain (ED), Acute Headache (ED), Impaired Kidney Function (ED) Referrals: PRIMARY MD DOC [Primary Care Provider] - 3-5 Days KAYY FONSECA MD [Staff Physician] - 3-5 Days [facility] [Provider Group] - 3-5 Days Time of Disposition: 02:32
[2020-03-14] MEDS ORDERED: BUTALB/ACETAMINOPHEN/CAFFEINE TAB PO ONE (00:39)
[2020-03-14] MEDS ORDERED: ALUM-MAG HYDROXIDE-SIMETHICONE 200-200-20MG/5ML ORAL LIQD 30 ML PO ONE (00:39)
[2020-03-14] MEDS ORDERED: SODIUM CHLORIDE 0.9% 1000 ML 1,000 ML IV ONE (00:40)
[2020-03-14] MEDS: LIDOCAINE VISCOUS 2% 15 ML ORAL LIQD PO ONE (01:01)
[2020-03-14 03:36] VITALS: BP 148/96
== END 2020-03-14 04:00 | disposition home or self-care (01) ==
LOC: ED 22:30
DX: R07.89 Other chest pain (principal); R51 Headache; N28.9 Disorder of kidney and ureter, unspecified; I10 Essential (primary) hypertension; E11.9 Type 2 diabetes mellitus without complications; K21.9 Gastro-esophageal reflux disease without esophagitis; Z86.73 Personal history of transient ischemic attack (TIA), and cerebral infarction without residual deficits; Z79.82 Long term (current) use of aspirin; Z79.899 Other long term (current) drug therapy; Z91.018 Allergy to other foods
CPT/HCPCS: 36415; 71045; 80048; 84484; 85025; 93005; 96360

== ENCOUNTER 2020-08-16 19:40 | Inpatient (IN) | payer OTHER ==
[2020-08-16 21:13] LABS: Basophils # (Auto) 0.1 K/mm3 (0.0-0.1); Basophils % (Auto) 0.9 % (0.0-1.8); Eosinophils # (Auto) 0.1 K/mm3 (0.0-0.4); Eosinophils % (Auto) 2.3 % (0.0-4.3); Hematocrit 37.3 % (35.5-45.6); Hemoglobin 12.2 gm/dl (11.8-15.2); Lymphocytes # (Auto) 1.8 K/mm3 (1.2-5.4); Lymphocytes % (Auto) 27.6 % (13.4-35.0); Mean Corpuscular HGB Conc 33 % (32-34); Mean Corpuscular Volume 79 fl (84-94); Monocytes # (Auto) 0.5 K/mm3 (0.0-0.8); Monocytes % (Auto) 7.8 % (0.0-7.3); Platelet Count 275 K/mm3 (140-440); Red Blood Count 4.71 M/mm3 (3.65-5.03); Red Cell Distribution Width 15.4 % (13.2-15.2)
[2020-08-16 21:33] LABS: BUN/Creatinine Ratio 18; Blood Urea Nitrogen 23 mg/dL (9-20); Calcium 10.2 mg/dL (8.4-10.2); Hemolysis Index 4
--- NOTE | 2020-08-16 21:52 | XRay Report ---
CHEST 1 VIEW INDICATION / CLINICAL INFORMATION: Chest Pain. COMPARISON: 03/13/2020 FINDINGS: SUPPORT DEVICES: None. HEART / MEDIASTINUM: No significant abnormality. LUNGS / PLEURA: No significant pulmonary or pleural abnormality. No pneumothorax. ADDITIONAL FINDINGS: No significant additional findings. IMPRESSION: 1. No acute findings. No interval change. Signer Name: Anabell Frost MD Signed: 08/16/2020 9:48 PM Workstation Name: [id number]
[2020-08-16] MEDS ORDERED: NITROGLYCERIN 2% OINT 1 GM TP ONE (22:44)
[2020-08-16] MEDS ORDERED: fentaNYL 100 MCG/2 ML INJ IV ONE (22:44)
[2020-08-16] MEDS ORDERED: ONDANSETRON 4 MG/2 ML INJ IV ONE (22:44)
[2020-08-16] MEDS ORDERED: ASPIRIN 325 MG TAB PO ONE (22:45)
--- NOTE | 2020-08-16 22:49 | Emergency Department Report ---
HPI - General Chief Complaint: Chest Pain Time Seen by Provider: 08/16/20 22:35 - HPI HPI: Room 44 The patient is a 45-year-old male present with a chief complaint of chest pain. The patient states for 1 week he has had intermittent substernal chest pain described as throbbing and pressure-like in nature. Patient states the pain radiates to his neck and he has noticed numbness in his left upper extremity. Patient admits to shortness of breath associated with his chest pain but denies nausea/vomiting or diaphoresis. The patient currently gives his chest pain a score of 8/10. The patient states his last cardiac catheterization occurred around ED Past Medical Hx - Past Medical History Previous Medical History?: Yes Hx Hypertension: Yes Hx CVA: Yes Hx Diabetes: Yes Hx GERD: Yes Hx Headaches / Migraines: Yes Additional medical history: sleep apnea, hiatal hernia. chronic back pain, "heart problems" - Surgical History Past Surgical History?: Yes Additional Surgical History: Right upper extremity surgery secondary to trauma, cardiac catheterization - Family History Family history: no significant - Social History Smoking Status: Never Smoker Substance Use Type: None (Denies illicit drug use) - Medications Home Medications: Home Medications Medication Instructions Recorded Confirmed Last Taken Type cloNIDine [Catapres] 0.2 mg PO BID 11/27/17 07/17/19 Unknown History AtorvaSTATin [Lipitor] 20 mg PO DAILY 02/23/19 07/17/19 Unknown History Cyclobenzaprine [Flexeril 10 MG 10 mg PO TID PRN #20 tablet 02/23/19 07/17/19 Unknown Rx TAB] Ferrous Sulfate [Iron 325 MG] 325 mg PO BID 02/23/19 07/17/19 Unknown History Glimepiride [Amaryl] 4 mg PO DAILY 02/23/19 07/17/19 Unknown History Metformin HCl [metFORMIN] 1,000 mg PO BID 02/23/19 07/17/19 Unknown History Triamterene-Hctz 75-50 mg Tab 1 tab PO DAILY 02/23/19 07/17/19 Unknown History amLODIPine 10 mg PO DAILY 02/23/19 07/17/19 Unknown History Aspirin EC [Halfprin EC] 81 mg PO QDAY #90 tablet. 04/29/19 07/17/19 Unknown Rx methylPREDNISolone [Medrol] 4 mg PO BID #10 tablet 07/18/19 Unknown Rx Pregabalin [Lyrica] 100 mg PO BID #60 capsule 07/19/19 Unknown Rx Butalb/Acetamin/Caff 50-325-40 1 tab PO Q6HR PRN #10 tab 03/14/20 Unknown Rx [Fioricet] ED Review of Systems ROS: Stated complaint: CHEST PAINS Other details as noted in HPI Constitutional: denies: diaphoresis Eyes: denies: eye pain ENT: denies: throat pain Respiratory: shortness of breath Cardiovascular: chest pain Endocrine: no symptoms reported Gastrointestinal: denies: nausea, vomiting Genitourinary: denies: dysuria Musculoskeletal: denies: back pain Neurological: paresthesias Physical Exam - Physical Exam Vital Signs: Vital Signs 08/16/20 20:41 Temperature 98.0 F Pulse Rate 80 Respiratory 18 Rate Blood Pressure 133/94 O2 Sat by Pulse 97 Oximetry Physical Exam: GENERAL: The patient is well-developed well-nourished male lying on stretcher not appearing to be in acute distress. [] HEENT: Normocephalic. Atraumatic. Extraocular motions are intact. Patient has moist mucous membranes. NECK: Supple. Trachea midline CHEST/LUNGS: Clear to auscultation. There is no respiratory distress noted. HEART/CARDIOVASCULAR: Regular. There is no tachycardia. There is no gallop rub or murmur. ABDOMEN: Abdomen is soft, nontender. Patient has normal bowel sounds. There is no abdominal distention. SKIN: There is no rash. There is no edema. There is no diaphoresis. NEURO: The patient is awake, alert, and oriented. The patient is cooperative. The patient has normal speech MUSCULOSKELETAL: There is no evidence of acute injury. ED Course Vital Signs 08/16/20 20:41 Temperature 98.0 F Pulse Rate 80 Respiratory 18 Rate Blood Pressure 133/94 O2 Sat by Pulse 97 Oximetry ED Medical Decision Making - Lab Data Result diagrams: 08/16/20 21:00 08/16/20 21:00 - Radiology Data Radiology results: report reviewed (Chest x-ray), image reviewed (Chest x-ray) interpreted by me: Chest x-ray-no focal infiltrates, no pneumothorax. No foreign body seen Findings [facility] [address] [place] [address] XRay Report Signed Patient: LIZZIE FRASER MR#: [id number] : 1975 Acct:[id number] Age/Sex: 45 / M ADM Date: 08/16/20 Loc: ED Attending Dr: Ordering Physician: DARA MUSTAFA MD Date of Service: 08/16/20 Procedure(s): XR chest 1V ap Accession Number(s): [id number] cc: ED MD RAMSEY Fluoro Time In Minutes: CHEST 1 VIEW INDICATION / CLINICAL INFORMATION: Chest Pain. COMPARISON: 03/13/2020 FINDINGS: SUPPORT DEVICES: None. HEART / MEDIASTINUM: No significant abnormality. LUNGS / PLEURA: No significant pulmonary or pleural abnormality. No pneumothorax. ADDITIONAL FINDINGS: No significant additional findings. IMPRESSION: 1. No acute findings. No interval change. Signer Name: Anabell Frost MD Signed: 08/16/2020 9:48 PM Workstation Name: [id number] Transcribed By: Dictated By: Anabell Frost MD Electronically Authenticated By: Anabell Frost MD Signed Date/Time: 08/16/202147 DD/ 46 TD/TT: - Differential Diagnosis ACS, angina, pericarditis, GERD, anxiety Critical care attestation.: If time is entered above; I have spent that time in minutes in the direct care of this critically ill patient, excluding procedure time. ED Disposition Clinical Impression: Chest pain Disposition: OP ADMIT IP TO THIS HOSP Is pt being admited?: Yes Does the pt Need Aspirin: Yes Condition: Fair Instructions: Chest Pain (ED) Referrals: HOLLY COLLINS MD [Primary Care Provider] - 3-5 Days Time of Disposition: 23:23 (Hospitalist paged (Dr Gannon)) HEART Score - HEART Score History: Moderately suspicious EKG: Normal Age: 45-65 Risk factors: > 3 risk factors or hx of atherosclerotic disease Troponin: Troponin T < 0.010 ng/mL (0.00-0.029) 08/16/20 21:00 Troponin: < normal limit HEART Score: 4
[2020-08-16] MEDS ORDERED: MORPHINE 2 MG/1 ML INJ IV PRN (23:58)
[2020-08-16] MEDS ORDERED: MAGNESIUM HYDROXIDE (MOM) ORAL LIQD UDC PO PRN (23:58)
[2020-08-16] MEDS ORDERED: NITROGLYCERIN 0.4 MG TAB SUBL SL PRN (23:58)
[2020-08-16] MEDS ORDERED: ONDANSETRON 4 MG/2 ML INJ IV PRN (23:58)
[2020-08-16] MEDS ORDERED: DEXTROSE 50% IN WATER (25GM) 50 ML SYRINGE IV PRN (23:58)
[2020-08-16] MEDS ORDERED: ACETAMINOPHEN 325 MG TAB PO PRN ×2 (23:58)
--- NOTE | 2020-08-17 00:08 | History and Physical Report ---
History of Present Illness Date of examination: 08/16/20 Date of admission: 08/16/2020 Chief complaint: Chest Pain History of present illness: 45 year old male with history of CVA, D/Mellitus, hypertension seen in the emergency room complaining of Chest Pain. Pain felt like pressure and was throbbing at times. This has been ongoing for about a week. No no relieving or exacerbating factor. On a scale of 10 pain was about 8/10 in severity Pain radiates to neck. He has also had some numbness in the left upper extremity. He has had associated shortness, no nausea vomiting, no abdominal pain, no headache or dizziness. Patient denies any diaphoresis, no fever or chills. Patient states that he had a cardiac catheterization sometime in 2011. Did not have any stent placement. Work-up in the emergency room today including chest x-ray, EKG and troponins were unremarkable. Patient is being admitted for chest pain evaluation. Past History Past Medical History: diabetes, GERD, hypertension, hyperlipidemia, stroke, ot her (Sleep apnea, hiatal hernia, chronic back pain, migraine headaches) Past Surgical History: Other (Cardiac cath about 8 to 9 years ago) Social history: no significant social history Family history: no significant family history Medications and Allergies Allergies Allergy/AdvReac Type Severity Reaction Status Date / Time tomato [Tomato] Allergy Swelling Verified 02/23/19 14:38 Home Medications Medication Instructions Recorded Confirmed Last Taken Type cloNIDine [Catapres] 0.2 mg PO BID 11/27/17 07/17/19 Unknown History AtorvaSTATin [Lipitor] 20 mg PO DAILY 02/23/19 07/17/19 Unknown History Cyclobenzaprine [Flexeril 10 MG 10 mg PO TID PRN #20 tablet 02/23/19 07/17/19 Unknown Rx TAB] Ferrous Sulfate [Iron 325 MG] 325 mg PO BID 02/23/19 07/17/19 Unknown History Glimepiride [Amaryl] 4 mg PO DAILY 02/23/19 07/17/19 Unknown History Metformin HCl [metFORMIN] 1,000 mg PO BID 02/23/19 07/17/19 Unknown History Triamterene-Hctz 75-50 mg Tab 1 tab PO DAILY 02/23/19 07/17/19 Unknown History amLODIPine 10 mg PO DAILY 02/23/19 07/17/19 Unknown History Aspirin EC [Halfprin EC] 81 mg PO QDAY #90 tablet.dr 04/29/19 07/17/19 Unknown Rx methylPREDNISolone [Medrol] 4 mg PO BID #10 tablet 07/18/19 Unknown Rx Pregabalin [Lyrica] 100 mg PO BID #60 capsule 07/19/19 Unknown Rx Butalb/Acetamin/Caff 50-325-40 1 tab PO Q6HR PRN #10 tab 03/14/20 Unknown Rx [Fioricet] Active Meds: Active Medications Acetaminophen (Acetaminophen 325 Mg Tab) 650 mg PO Q4H PRN PRN Reason: Pain MILD(1-3)/Fever >100.5/MITCHELL Acetaminophen (Acetaminophen 325 Mg Tab) 650 mg PO Q6H PRN PRN Reason: Pain, Mild (1-3) Aspirin (Aspirin Ec 325 Mg Tab) 325 mg PO QDAY ALPESH Dextrose (Dextrose 50% In Water (25gm) 50 Ml Syringe) 50 ml IV Q30MIN PRN; Protocol PRN Reason: Hypoglycemia Insulin Human Lispro (Insulin Lispro 100 Unit/Ml) 0 unit SUB-Q ACHS ALPESH; Protocol Magnesium Hydroxide (Magnesium Hydroxide (Mom) Oral Liqd Udc) 30 ml PO Q4H PRN PRN Reason: Constipation Morphine Sulfate (Morphine 4 Mg/1 Ml Inj) 2 mg IV Q5MIN PRN PRN Reason: Chest Pain Nitroglycerin (Nitroglycerin 0.4 Mg Tab Subl) 0.4 mg SL Q5M PRN PRN Reason: Chest Pain Ondansetron HCl (Ondansetron 4 Mg/2 Ml Inj) 4 mg IV Q8H PRN PRN Reason: Nausea And Vomiting Sodium Chloride (Sodium Chloride 0.9% 10 Ml Flush Syringe) 10 ml IV BID ALPESH Sodium Chloride (Sodium Chloride 0.9% 10 Ml Flush Syringe) 10 ml IV PRN PRN PRN Reason: LINE FLUSH Sodium Chloride (Sodium Chloride 0.9% 10 Ml Flush Syringe) 10 ml IV PRN PRN PRN Reason: LINE FLUSH Review of Systems Constitutional: no fever, no chills, no weakness, no malaise, no lethargy Ears, nose, mouth and throat: no nasal congestion, no sore throat Cardiovascular: chest pain, no orthopnea, no palpitations Respiratory: no cough, no shortness of breath Gastrointestinal: no abdominal pain, no nausea, no vomiting, no diarrhea Genitourinary Male: no dysuria, no hematuria, no flank pain, no nocturia Musculoskeletal: no neck pain, no low back pain Integumentary: no rash, no pruritis Neurological: no headaches, no confusion Psychiatric: no anxiety, no depression Exam - Constitutional Vitals: Temp Pulse Resp BP Pulse Ox 98.0 F 75 13 145/105 99 08/16/20 20:41 08/16/20 23:03 08/16/20 23:01 08/16/20 23:03 08/16/20 22:39 General appearance: Present: no acute distress, well-nourished, obese - EENT Eyes: Present: PERRL, EOM intact. Absent: scleral icterus ENT: hearing intact, clear oral mucosa, dentition normal - Neck Neck: Present: supple, normal ROM - Respiratory Respiratory effort: normal Respiratory: bilateral: CTA - Cardiovascular Rhythm: regular Heart Sounds: Present: S1 & S2. Absent: gallop, systolic murmur, diastolic murmur, rub, click - Extremities Extremities: no ischemia, pulses intact, pulses symmetrical, No edema, normal temperature, normal color, Full ROM Peripheral Pulses: within normal limits - Abdominal General gastrointestinal: Present: soft, non-tender, non-distended, normal bowel sounds. Absent: mass - Integumentary Integumentary: Present: clear, warm, dry. Absent: rash - Musculoskeletal Musculoskeletal: strength equal bilaterally - Psychiatric Psychiatric: appropriate mood/affect, intact judgment & insight, memory intact, cooperative - Neurologic Neurologic: CNII-XII intact, no focal deficits, moves all extremities HEART Score - HEART Score History: Moderately suspicious EKG: Normal Age: 45-65 Risk factors: > 3 risk factors or hx of atherosclerotic disease Troponin: Troponin T < 0.010 ng/mL (0.00-0.029) 08/16/20 21:00 Troponin: < normal limit HEART Score: 4 Results - Labs CBC & Chem 7: 08/16/20 21:00 08/16/20 21:00 Labs: Abnormal lab results 08/16/20 08/16/20 Range/Units 21:00 21:00 MCV 79 L (84-94) fl MCH 26 L (28-32) pg RDW 15.4 H (13.2-15.2) % [place] % (Auto) 7.8 H (0.0-7.3) % BUN 23 H (9-20) mg/dL Glucose 232 H (75-100) mg/dL Assessment and Plan - Patient Problems (1) Chest pain Current Visit: Yes Status: Acute Plan to address problem: And admitted and placed on telemetry. Will check serial cardiac enzymes. Patient started on aspirin, sublingual nitroglycerin and IV morphine as needed for chest pain. Consult placed to cardiology for evaluation and recommendation. (2) Chronic back pain Current Visit: No Status: Acute Plan to address problem: We will continue patient on his routine on medication. (3) Hypertension Current Visit: No Status: Acute Plan to address problem: We will resume routine home medications and monitor vital signs closely. (4) Diabetes mellitus Current Visit: Yes Status: Acute Plan to address problem: We will monitor Accu-Cheks closely. (5) Morbid obesity with BMI of 40.0-44.9, adult Current Visit: No Status: Chronic Plan to address problem: Patient encouraged on lifestyle modification. Dietary consult placed. (6) DVT prophylaxis Current Visit: No Status: Acute Plan to address problem: Patient placed on subcutaneous Lovenox. (7) Full code status Current Visit: Yes Status: Acute Plan to address problem: Patient is a full code.
[2020-08-17 04:11] LABS: BUN/Creatinine Ratio 20; Blood Urea Nitrogen 24 mg/dL (9-20); Calcium 10.1 mg/dL (8.4-10.2); Hemolysis Index 22
[2020-08-17 04:15] LABS: Basophils % (Auto) 0.6 % (0.0-1.8); Eosinophils # (Auto) 0.1 K/mm3 (0.0-0.4); Eosinophils % (Auto) 2.4 % (0.0-4.3); Hematocrit 36.6 % (35.5-45.6); Hemoglobin 11.7 gm/dl (11.8-15.2); Lymphocytes # (Auto) 1.9 K/mm3 (1.2-5.4); Mean Corpuscular HGB Conc 32 % (32-34); Mean Corpuscular Volume 79 fl (84-94); Monocytes # (Auto) 0.5 K/mm3 (0.0-0.8); Monocytes % (Auto) 9.1 % (0.0-7.3); Platelet Count 271 K/mm3 (140-440); Red Blood Count 4.66 M/mm3 (3.65-5.03); Red Cell Distribution Width 15.8 % (13.2-15.2)
[2020-08-17 04:44] LABS: Chol/HDL Ratio 4.11 %
[2020-08-17] MEDS: INSULIN LISPRO 100 UNIT/ML SUB-Q SCH ×5 (08:00→21:35)
[2020-08-17] MEDS: PREGABALIN 50 MG CAP PO SCH ×2 (10:43→21:35)
[2020-08-17] MEDS: TRIAMTER/HCTZ 37.5-25 MG TAB PO SCH (10:44)
[2020-08-17] MEDS: amLODIPine 10 MG TAB PO SCH (10:44)
--- NOTE | 2020-08-17 12:03 | Discharge Summary ---
Providers - Providers Date of Admission: 08/16/20 23:34 Date of discharge: 08/17/20 Attending physician: AYLA ZEPEDA 08/16/20 23:58 Consult to Dietitian/Nutrition [CONS] Routine Physician Instructions: Reason For Exam: Reason for Consult: Diet education Primary care physician: [facility] MD ELAN Hospitalization Condition: Fair Disposition: DC-01 TO HOME OR SELFCARE Time spent for discharge: 34 minutes Core Measure Documentation - Palliative Care Palliative Care/ Comfort Measures: Not Applicable - Core Measures Any of the following diagnoses?: none Exam - Constitutional Vitals: Temp Pulse Resp BP Pulse Ox 97.6 F 66 19 123/78 96 08/17/20 08:53 08/17/20 10:44 08/17/20 10:00 08/17/20 10:44 08/17/20 09:00 Plan Activity: advance as tolerated Weight Bearing Status: Weight Bear as Tolerated Diet: diabetic Special Instructions: record blood sugar diary Additional Instructions: Need better glycemic control Follow up with: HOLLY COLLINS MD [Primary Care Provider] - 3-5 Days LEATHA AMBROSIO MD [Staff Physician] - 7 Days
[2020-08-17 12:42] LABS: Amphetamine Screen,Urine Negative; Benzodiazepines Screen,Urine Negative; Cannabinoid Screen,Urine Negative; Cocaine Screen,Urine Negative; Methadone Screen,Urine Negative; Opiate Screen,Urine Negative
--- NOTE | 2020-08-17 14:03 | Progress Note ---
Assessment and Plan Atypical chest pain, rule out ACS Diabetes mellitus type 2, uncontrolled A1c 12.6 Morbid obesity Hypertension Chronic back pain --Admitted to telemetry bed - monitor with serial CE and EKG -Negative UDS study -Continue on Aspirin, statin, consult cardiology - as needed SL NTG and iv morphin for pain - Monitor BP, add betablocker and ACEI if BP tolerates - ordered 2D echo and stress test on Wednesday per fibre technologist - cardiac diet now, NPO after midnight on Wednesday - provide DVT Px with lovenox Subjective Date of service: 08/17/20 Interval history: Patient seen and examined. Medical records and medication list reviewed. No acute event overnight noted by the RN. Patient denies any difficulty breathing. Patient is tolerating diet. Continue to complains of intermittent chest pain Discussed plan of care at bedside with patient. Objective - Exam Narrative Exam: GENERAL: well-developed and morbidly obese -Citizen Of The [place] male lying on bed appeared to be in no discomfort. HEENT: Normocephalic. Atraumatic. No conjunctival congestion or icterus. Patient has moist mucous membranes. NECK: Supple. Trachea midline. CHEST/LUNGS: Clear to auscultated bilaterally, breathing nonlabored. No wheezes crackles or rhonchi. HEART/CARDIOVASCULAR: Regular in rate and rhythm. S1 and S2 positive. ABDOMEN: Abdomen is soft, nontender. Patient has normal bowel sounds. SKIN: There is no rash. Warm and dry. NEURO: No focal motor deficit. Follows command. MUSCULOSKELETAL: No joint effusion or tenderness. EXTRIMITY: No edema, no cyanosis or clubbing. PSYCH: Cooperative. - Constitutional Vitals: Vital Signs - 12hr 08/17/20 08/17/20 08/17/20 03:45 08:00 08:24 Temperature 96.7 F L Pulse Rate 66 97 H 83 Pulse Rate [ Left Radial] Pulse Rate [ Right Radial] Respiratory 18 Rate Blood Pressure 130/88 133/79 O2 Sat by Pulse 95 Oximetry 08/17/20 08/17/20 08/17/20 08:53 09:00 10:00 Temperature 97.6 F Pulse Rate 67 73 Pulse Rate [ 66 Left Radial] Pulse Rate [ 66 Right Radial] Respiratory 18 19 Rate Blood Pressure 124/62 122/72 O2 Sat by Pulse 97 96 Oximetry 08/17/20 10:44 Temperature Pulse Rate 66 Pulse Rate [ Left Radial] Pulse Rate [ Right Radial] Respiratory Rate Blood Pressure 123/78 O2 Sat by Pulse Oximetry - Labs CBC & Chem 7: 08/18/20 06:38 08/18/20 06:38 Labs: Abnormal lab results 08/16/20 08/16/20 08/17/20 Range/Units 21:00 21:00 03:03 Hgb (11.8-15.2) gm/dl MCV 79 L (84-94) fl MCH 26 L (28-32) pg RDW 15.4 H (13.2-15.2) % [place] % (Auto) 7.8 H (0.0-7.3) % BUN 23 H (9-20) mg/dL Glucose 232 H (75-100) mg/dL POC Glucose (70-105) mg/dL Hemoglobin A1c 12.3 H (4-6) % Triglycerides (2-149) mg/dL HDL Cholesterol (40-59) mg/dL 08/17/20 08/17/20 08/17/20 Range/Units 03:03 03:03 03:03 Hgb 11.7 L (11.8-15.2) gm/dl MCV 79 L (84-94) fl MCH 25 L (28-32) pg RDW 15.8 H (13.2-15.2) % [place] % (Auto) 9.1 H (0.0-7.3) % BUN 24 H (9-20) mg/dL Glucose 215 H (75-100) mg/dL POC Glucose (70-105) mg/dL Hemoglobin A1c (4-6) % Triglycerides 289 H (2-149) mg/dL HDL Cholesterol 34 L (40-59) mg/dL 08/17/20 Range/Units 08:15 Hgb (11.8-15.2) gm/dl MCV (84-94) fl MCH (28-32) pg RDW (13.2-15.2) % [place] % (Auto) (0.0-7.3) % BUN (9-20) mg/dL Glucose (75-100) mg/dL POC Glucose 164 H (70-105) mg/dL Hemoglobin A1c (4-6) % Triglycerides (2-149) mg/dL HDL Cholesterol (40-59) mg/dL HEART Score - HEART Score History: Moderately suspicious EKG: Normal Age: 45-65 Risk factors: > 3 risk factors or hx of atherosclerotic disease Troponin: Troponin T < 0.010 ng/mL (0.00-0.029) 08/17/20 05:28 Troponin: < normal limit HEART Score: 4
[2020-08-17] MEDS: MORPHINE 2 MG/1 ML INJ IV PRN ×2 (14:59→21:35)
--- NOTE | 2020-08-17 16:18 | Consultation ---
History of Present Illness Consult date: 08/17/20 Requesting physician: AYLA ZEPEDA Consult reason: chest pain History of present illness: Pt is a 45-year-old AA male, previously unknown to our practice, who presented with complaints of intermittent substernal chest pressure for approximately 1 week prior to arrival. Pain radiates to neck and left arm. Pt also reports left arm numbness. Episodes last anywhere from a few min to a few hours. No aggravating or relieving factors. Associated with SOB. Pt denies any additional complaints. Trop neg x 3. ECG reveals no acute ischemic changes. CXR reveals no acute findings. No previous cardiac workup available for review. HEART Score: 4 Past History Past Medical History: diabetes, GERD, hypertension, hyperlipidemia, migraines, stroke, other (JANET) Social history: other (h/o polysubstance abuse) Medications and Allergies Allergies Allergy/AdvReac Type Severity Reaction Status Date / Time tomato [Tomato] Allergy Swelling Verified 02/23/19 14:38 Home Medications Medication Instructions Recorded Confirmed Last Taken Type cloNIDine [Catapres] 0.2 mg PO BID 11/27/17 08/17/20 08/16/20 History AtorvaSTATin [Lipitor] 20 mg PO DAILY 02/23/19 08/17/20 08/16/20 History Cyclobenzaprine [Flexeril 10 MG 10 mg PO TID PRN #20 tablet 02/23/19 08/17/20 Unknown Rx TAB] Ferrous Sulfate [Iron 325 MG] 325 mg PO BID 02/23/19 08/17/20 Unknown History Glimepiride [Amaryl] 4 mg PO DAILY 02/23/19 08/17/20 Unknown History Metformin HCl [metFORMIN] 1,000 mg PO BID 02/23/19 08/17/20 08/16/20 History Triamterene-Hctz 75-50 mg Tab 1 tab PO DAILY 02/23/19 08/17/20 08/16/20 History amLODIPine 10 mg PO DAILY 02/23/19 08/17/20 08/16/20 History Aspirin EC [Halfprin EC] 81 mg PO QDAY #90 tablet. 04/29/19 08/17/20 Unknown Rx Butalb/Acetamin/Caff 50-325-40 1 tab PO Q6HR PRN #10 tab 03/14/20 08/17/20 Unknown Rx [Fioricet 50-325-40] Active Meds: Active Medications Acetaminophen (Acetaminophen 325 Mg Tab) 650 mg PO Q4H PRN PRN Reason: Pain MILD(1-3)/Fever >100.5/[place] Amlodipine Besylate (Amlodipine 10 Mg Tab) 10 mg PO DAILY [facility] Last Admin: 08/17/20 10:44 Dose: 10 mg Documented by: Aspirin (Aspirin Ec 81 Mg Tab) 81 mg PO QDAY [facility] Atorvastatin Calcium (Atorvastatin 20 Mg Tab) 20 mg PO DAILY [facility] Last Admin: 08/17/20 10:43 Dose: 20 mg Documented by: Dextrose (Dextrose 50% In Water (25gm) 50 Ml Syringe) 0 ml IV Q30MIN PRN; Protocol PRN Reason: Hypoglycemia Enoxaparin Sodium (Enoxaparin 40 Mg/0.4 Ml Inj) 40 mg SUB-Q QDAY@2200 [facility]; Protocol Ferrous Sulfate (Ferrous Sulfate 325 Mg Tab) 325 mg PO BID [facility] Glimepiride (Glimepiride 4 Mg Tab) 4 mg PO DAILY [facility] Insulin Human Lispro (Insulin Lispro 100 Unit/Ml) 0 unit SUB-Q ACHS [facility]; Protocol Last Admin: 08/17/20 12:11 Dose: 4 unit Documented by: Magnesium Hydroxide (Magnesium Hydroxide (Mom) Oral Liqd Udc) 30 ml PO Q4H PRN PRN Reason: Constipation Morphine Sulfate (Morphine 2 Mg/1 Ml Inj) 2 mg IV Q4H PRN PRN Reason: Pain , Severe (7-10) Last Admin: 08/17/20 14:59 Dose: 2 mg Documented by: Ondansetron HCl (Ondansetron 4 Mg/2 Ml Inj) 4 mg IV Q8H PRN PRN Reason: Nausea And Vomiting Oxycodone/Acetaminophen (Oxycodone /Acetaminophen 5-325mg Tab) 1 tab PO Q6H PRN PRN Reason: Pain, Moderate (4-6) Pregabalin (Pregabalin 50 Mg Cap) 100 mg PO BID [facility] Last Admin: 08/17/20 10:43 Dose: 100 mg Documented by: Sodium Chloride (Sodium Chloride 0.9% 10 Ml Flush Syringe) 10 ml IV BID [facility] Last Admin: 08/17/20 10:45 Dose: 10 ml Documented by: Sodium Chloride (Sodium Chloride 0.9% 10 Ml Flush Syringe) 10 ml IV PRN PRN PRN Reason: LINE FLUSH Triamterene/Hydrochlorothiazide (Triamter/Hctz 37.5-25 Mg Tab) 2 each PO DAILY [facility] Last Admin: 08/17/20 10:44 Dose: 2 each Documented by: Review of Systems Constitutional: no fever, no chills, no sweats Ears, nose, mouth and throat: no nasal congestion, no sore throat Cardiovascular: chest pain, shortness of breath, no orthopnea, no palpitations, no edema, no syncope, no lightheadedness, no dyspnea on exertion, no claudication Respiratory: shortness of breath, no cough, no dyspnea on exertion Gastrointestinal: no abdominal pain, no nausea, no vomiting, no diarrhea, no constipation Genitourinary Male: no dysuria, no flank pain Musculoskeletal: no neck stiffness, no neck pain, no myalgias Integumentary: no rash, no wounds Neurological: numbness (LUE), no head injury, no paralysis, no weakness, no parathesias, no tingling, no seizures, no syncope, no vertigo, no headaches Endocrine: no cold intolerance, no heat intolerance, no polydipsia, no polyuria Hematologic/Lymphatic: no easy bruising, no easy bleeding Allergic/Immunologic: no anaphylaxis Physical Examination Last Vital Signs Temp 97.6 F 08/17/20 08:53 Pulse 89 08/17/20 12:00 Resp 19 08/17/20 10:00 BP 123/78 08/17/20 10:44 Pulse Ox 96 08/17/20 09:00 General appearance: no acute distress HEENT: Positive: EOMI, Normocephaly, Mucus Membranes Moist Neck: Positive: neck supple, trachea midline. Negative: JVD/HJR Cardiac: Positive: Reg Rate and Rhythm, S1/S2 Lungs: Positive: clear to auscultation Neuro: Positive: Grossly Intact Abdomen: Positive: Soft. Negative: Tender Skin: Negative: Rash Musculoskeletal: Normal Range of Motion Extremities: Present: upper extr. pulses, lower extr. pulses. Absent: edema Results 08/18/20 06:38 08/18/20 06:38 Lipids 08/17/20 Range/Units 03:03 Triglycerides 289 H (2-149) mg/dL Cholesterol 140 (50-199) mg/dL HDL Cholesterol 34 L (40-59) mg/dL Cholesterol/HDL Ratio 4.11 % CBC 08/16/20 08/17/20 Range/Units 21:00 03:03 WBC 6.6 5.9 (4.5-11.0) K/mm3 RBC 4.71 4.66 (3.65-5.03) M/mm3 Hgb 12.2 11.7 L (11.8-15.2) gm/dl Hct 37.3 36.6 (35.5-45.6) % Plt Count 275 271 (140-440) K/mm3 Lymph # (Auto) 1.8 1.9 (1.2-5.4) K/mm3 [place] # (Auto) 0.5 0.5 (0.0-0.8) K/mm3 Eos # (Auto) 0.1 0.1 (0.0-0.4) K/mm3 Baso # (Auto) 0.1 0.0 (0.0-0.1) K/mm3 Comprehensive Metabolic Panel 08/16/20 08/17/20 Range/Units 21:00 03:03 Sodium 139 139 (137-145) mmol/L Potassium 4.6 4.8 (3.6-5.0) mmol/L Chloride 100.5 100.4 (98-107) mmol/L Carbon Dioxide 23 24 (22-30) mmol/L BUN 23 H 24 H (9-20) mg/dL Creatinine 1.3 1.2 (0.8-1.3) mg/dL Glucose 232 H 215 H (75-100) mg/dL Calcium 10.2 10.1 (8.4-10.2) mg/dL - Imaging and Cardiology Echo: pending EKG: report reviewed, image reviewed - EKG Interpretation EKG: no acute changes EKG interpretations - EKG Sinus rhythms and dysrhythmias: sinus rhythm Myocardial infarction: septal [place] (old age or ind, anterior [place] (old age or i Assessment and Plan AMI r/o. Echo pending. Plan for Lexiscan stress MPI on Wednesday AM. NPO after midnight Wednesday. Continue ASA & statin. Continue current antihypertensive regimen. Case reviewed in conjunction with Dr. Graves, who agrees with the assessment and plan of care. - Patient Problems (1) Chest pain Current Visit: Yes Status: Acute (2) JANET (obstructive sleep apnea) Current Visit: Yes Status: Chronic (3) Hypertension Current Visit: Yes Status: Chronic Qualifiers: Hypertension type: essential hypertension Qualified Code(s): I10 - Essential (primary) hypertension (4) HLD (hyperlipidemia) Current Visit: Yes Status: Chronic Qualifiers: Hyperlipidemia type: mixed hyperlipidemia Qualified Code(s): E78.2 - Mixed hyperlipidemia (5) DM2 (diabetes mellitus, type 2) Current Visit: Yes Status: Chronic (6) GERD (gastroesophageal reflux disease) Current Visit: Yes Status: Chronic (7) Chronic back pain Current Visit: Yes Status: Chronic (8) H/O: CVA (cerebrovascular accident) Current Visit: Yes Status: Chronic
[2020-08-17] MEDS: FERROUS SULFATE 325 MG TAB PO SCH (21:35)
[2020-08-17] MEDS: ENOXAPARIN 40 MG/0.4 ML INJ SUB-Q SCH (21:36)
[2020-08-18 07:39] LABS: Basophils % (Auto) 0.6 % (0.0-1.8); Eosinophils # (Auto) 0.2 K/mm3 (0.0-0.4); Eosinophils % (Auto) 3.8 % (0.0-4.3); Hematocrit 38.5 % (35.5-45.6); Hemoglobin 12.5 gm/dl (11.8-15.2); Lymphocytes # (Auto) 1.5 K/mm3 (1.2-5.4); Lymphocytes % (Auto) 32.1 % (13.4-35.0); Mean Corpuscular HGB Conc 32 % (32-34); Mean Corpuscular Volume 79 fl (84-94); Monocytes # (Auto) 0.4 K/mm3 (0.0-0.8); Monocytes % (Auto) 8.7 % (0.0-7.3); Platelet Count 268 K/mm3 (140-440); Red Blood Count 4.88 M/mm3 (3.65-5.03); Red Cell Distribution Width 15.3 % (13.2-15.2)
[2020-08-18 07:43] LABS: INR 0.96 (0.87-1.13)
[2020-08-18 08:58] LABS: BUN/Creatinine Ratio 15; Blood Urea Nitrogen 16 mg/dL (9-20); Calcium 9.5 mg/dL (8.4-10.2); Hemolysis Index 10
[2020-08-18] MEDS: amLODIPine 10 MG TAB PO SCH (09:24)
[2020-08-18] MEDS: TRIAMTER/HCTZ 37.5-25 MG TAB PO SCH (09:24)
[2020-08-18] MEDS: GLIMEPIRIDE 4 MG TAB PO SCH (09:24)
[2020-08-18] MEDS: ASPIRIN EC 81 MG TAB PO SCH (09:24)
[2020-08-18] MEDS: PREGABALIN 50 MG CAP PO SCH ×2 (09:25→21:18)
[2020-08-18] MEDS: FERROUS SULFATE 325 MG TAB PO SCH ×2 (09:25→21:18)
[2020-08-18] MEDS: INSULIN LISPRO 100 UNIT/ML SUB-Q SCH ×4 (09:25→21:25)
[2020-08-18] MEDS ORDERED: ASPIRIN EC 325 MG TAB PO SCH (10:00)
--- NOTE | 2020-08-18 10:44 | Progress Note ---
Assessment and Plan Atypical chest pain, rule out ACS Diabetes mellitus type 2, uncontrolled A1c 12.6 Morbid obesity Hypertension Chronic back pain --Admitted to telemetry bed - monitor with serial CE and EKG -Negative UDS study -Continue on Aspirin, statin, consult cardiology - as needed SL NTG and iv morphin for pain - Monitor BP, add betablocker and ACEI if BP tolerates - ordered 2D echo and stress test tomorrow per system development engineer - cardiac/consistent carb diet now, NPO after midnight - provide DVT Px with lovenox Subjective Date of service: 08/18/20 Interval history: Patient seen and examined. Medical records and medication list reviewed. No acute event overnight noted by the RN. Patient denies any difficulty breathing. Patient is tolerating diet. Continue to complains of intermittent chest pain Discussed plan of care at bedside with patient. Planned for stress tomorrow Objective - Exam Narrative Exam: GENERAL: well-developed and morbidly obese -Serbian male lying on bed appeared to be in no discomfort. HEENT: Normocephalic. Atraumatic. No conjunctival congestion or icterus. Karla ent has moist mucous membranes. NECK: Supple. Trachea midline. CHEST/LUNGS: Clear to auscultated bilaterally, breathing nonlabored. No wheezes crackles or rhonchi. HEART/CARDIOVASCULAR: Regular in rate and rhythm. S1 and S2 positive. ABDOMEN: Abdomen is soft, nontender. Patient has normal bowel sounds. SKIN: There is no rash. Warm and dry. NEURO: No focal motor deficit. Follows command. MUSCULOSKELETAL: No joint effusion or tenderness. EXTRIMITY: No edema, no cyanosis or clubbing. PSYCH: Cooperative. - Constitutional Vitals: Vital Signs - 12hr 08/18/20 08/18/20 08/18/20 00:00 00:13 04:43 Temperature 98.0 F 98.0 F Pulse Rate 75 85 88 Respiratory 18 18 Rate Blood Pressure 128/84 131/98 O2 Sat by Pulse 99 98 Oximetry 08/18/20 08/18/20 08:05 08:25 Temperature 98.2 F Pulse Rate 78 78 Respiratory 18 Rate Blood Pressure 149/92 O2 Sat by Pulse 99 Oximetry - Labs CBC & Chem 7: 08/18/20 06:38 08/18/20 06:38 Labs: Abnormal lab results 08/17/20 08/17/20 08/17/20 Range/Units 11:33 16:50 20:17 MCV (84-94) fl MCH (28-32) pg RDW (13.2-15.2) % [place] % (Auto) (0.0-7.3) % Sodium (137-145) mmol/L Chloride (98-107) mmol/L Glucose (75-100) mg/dL POC Glucose 227 H 151 H 298 H (70-105) mg/dL 08/18/20 08/18/20 08/18/20 Range/Units 06:38 06:38 07:26 MCV 79 L (84-94) fl MCH 26 L (28-32) pg RDW 15.3 H (13.2-15.2) % [place] % (Auto) 8.7 H (0.0-7.3) % Sodium 134 L (137-145) mmol/L Chloride 97.2 L (98-107) mmol/L Glucose 207 H (75-100) mg/dL POC Glucose 187 H (70-105) mg/dL HEART Score - HEART Score EKG: Normal Age: 45-65 Risk factors: > 3 risk factors or hx of atherosclerotic disease Troponin: Troponin T < 0.010 ng/mL (0.00-0.029) 08/17/20 05:28 Troponin: < normal limit
--- NOTE | 2020-08-18 11:48 | Progress Note ---
Assessment and Plan Echo findings noted - mild concentric LVH, EF 60-65%, impaired LV relaxation, RVSP 9mmHg. Plan for Lexiscan stress MPI in AM. NPO after midnight. Continue ASA & statin. Continue current antihypertensive regimen. Recommend outpatient sleep eval upon discharge. Case reviewed in conjunction with Dr. Graves, who agrees with the assessment and plan of care. - Patient Problems (1) Chest pain Current Visit: Yes Status: Acute (2) JANET (obstructive sleep apnea) Current Visit: Yes Status: Suspected (3) Hypertension Current Visit: Yes Status: Chronic Qualifiers: Hypertension type: essential hypertension Qualified Code(s): I10 - Essential (primary) hypertension (4) HLD (hyperlipidemia) Current Visit: Yes Status: Chronic Qualifiers: Hyperlipidemia type: mixed hyperlipidemia Qualified Code(s): E78.2 - Mixed hyperlipidemia (5) DM2 (diabetes mellitus, type 2) Current Visit: Yes Status: Chronic (6) GERD (gastroesophageal reflux disease) Current Visit: Yes Status: Chronic (7) Chronic back pain Current Visit: Yes Status: Chronic (8) H/O: CVA (cerebrovascular accident) Current Visit: Yes Status: Chronic Subjective Date of service: 08/18/20 Principal diagnosis: Chest Pain Interval history: Resting comfortably in bed upon exam. Denies chest pain this AM. No additional complaints. Tele reviewed - SR 70-80s, ST up to 150s noted w/activity this AM, no events. Objective Last Vital Signs Temp 98.2 F 08/18/20 08:05 Pulse 78 08/18/20 08:25 Resp 18 08/18/20 08:05 BP 149/92 08/18/20 08:05 Pulse Ox 99 08/18/20 08:05 - Physical Examination General: No Apparent Distress HEENT: Positive: Normocephaly Neck: Positive: neck supple, trachea midline Cardiac: Positive: Reg Rate and Rhythm, S1/S2 Lungs: Positive: clear to auscultation Neuro: Positive: Grossly Intact Abdomen: Positive: Soft. Negative: Tender Skin: Negative: Rash Musculoskeletal: Normal Range of Motion Extremities: Absent: edema - Labs and Meds Coagulation 08/18/20 Range/Units 06:38 PT 12.7 (12.2-14.9) Sec. INR 0.96 (0.87-1.13) CBC 08/18/20 Range/Units 06:38 WBC 4.5 (4.5-11.0) K/mm3 RBC 4.88 (3.65-5.03) M/mm3 Hgb 12.5 (11.8-15.2) gm/dl Hct 38.5 (35.5-45.6) % Plt Count 268 (140-440) K/mm3 Lymph # (Auto) 1.5 (1.2-5.4) K/mm3 [place] # (Auto) 0.4 (0.0-0.8) K/mm3 Eos # (Auto) 0.2 (0.0-0.4) K/mm3 Baso # (Auto) 0.0 (0.0-0.1) K/mm3 Comprehensive Metabolic Panel 08/18/20 Range/Units 06:38 Sodium 134 L (137-145) mmol/L Potassium 4.4 (3.6-5.0) mmol/L Chloride 97.2 L (98-107) mmol/L Carbon Dioxide 28 (22-30) mmol/L BUN 16 (9-20) mg/dL Creatinine 1.1 (0.8-1.3) mg/dL Glucose 207 H (75-100) mg/dL Calcium 9.5 (8.4-10.2) mg/dL - Imaging and Cardiology EKG: report reviewed, image reviewed Pharmacologic stress test: pending Echo: report reviewed (08/17/2020 - mild concentric LVH, EF 60-65%, impaired LV relaxation, RVSP 9mmHg. ) - Telemetry EKG Rhythm: Sinus Rhythm - EKG Sinus rhythms and dysrhythmias: sinus rhythm Myocardial infarction: septal [place] (old age or ind, anterior [place] (old age or i
[2020-08-18] MEDS: ENOXAPARIN 40 MG/0.4 ML INJ SUB-Q SCH (21:18)
[2020-08-18] MEDS: oxyCODONE /ACETAMINOPHEN 5-325MG TAB PO PRN (21:19)
[2020-08-19] MEDS ORDERED: REGADENOSON 0.4 MG/5 ML INJ IV ONE (07:16)
[2020-08-19] MEDS: oxyCODONE /ACETAMINOPHEN 5-325MG TAB PO PRN (07:28)
[2020-08-19] MEDS: INSULIN LISPRO 100 UNIT/ML SUB-Q SCH ×2 (08:44→13:25)
[2020-08-19] MEDS: GLIMEPIRIDE 4 MG TAB PO SCH (10:20)
[2020-08-19] MEDS: PREGABALIN 50 MG CAP PO SCH (10:20)
[2020-08-19] MEDS: amLODIPine 10 MG TAB PO SCH (10:21)
[2020-08-19] MEDS: TRIAMTER/HCTZ 37.5-25 MG TAB PO SCH (10:21)
[2020-08-19] MEDS: ASPIRIN EC 81 MG TAB PO SCH (10:21)
[2020-08-19] MEDS: FERROUS SULFATE 325 MG TAB PO SCH (10:21)
--- NOTE | 2020-08-19 12:04 | Treadmill Report ---
IV PHARMACOLOGIC MYOCARDIAL PERFUSION IMAGING REPORT The patient is a 45-year-old white gentleman with history of hypertension, diabetes mellitus, morbid obesity and sleep apnea, was admitted with atypical chest pains of many days' duration. EKG showed sinus rhythm with no acute changes. The patient underwent pharmacological myocardial perfusion imaging using IV regadenoson as the vasodilator and technetium 99m sestamibi was used as the nuclear tracer. Resting nuclear perfusion images were obtained followed by vasodilation with IV regadenoson 0.4 mg. EKG showed sinus rhythm with no ST-T changes to suggest ischemia, no arrhythmia noted. The patient did not have any chest pain. Post-vasodilation images along with gating were obtained using technetium 99m sestamibi. The patient tolerated the procedure well. No untoward complications were noted. Following findings were noted. 1. Did not have any chest pain to suggest angina. 2. No significant EKG changes to suggest ischemia with a baseline rhythm being sinus with no arrhythmia noted. 3. Resting nuclear images showed mild inferior defect, most likely representing attenuation by diaphragm. No significant perfusion abnormalities noted except for inferior defect, which was felt to be artifactual from diaphragmatic attenuation. Transient ischemic dilation ratio was found to be 0.99. Gated studies showed left ventricular ejection fraction post-vasodilation to be 58% with end-diastolic volume of 124 mL and end-systolic volume of 52 mL. FINAL IMPRESSION: 1. The patient tolerated IV regadenoson well. 2. Negative for angina, negative for ischemia on the EKG, no arrhythmia noted. 3. Myocardial perfusion imaging did not show significant perfusion defects to suggest ischemia. Inferior wall abnormalities most consistent with diaphragmatic attenuation were noted. Overall, this study was felt to be low risk for future cardiac events. [facility]# [id number] AKILA/MORELIA PIERRE
[2020-08-19 12:15] VITALS: BP 116/74
--- NOTE | 2020-08-19 12:54 | Progress Note ---
Assessment and Plan Echo findings noted - mild concentric LVH, EF 60-65%, impaired LV relaxation, RVSP 9mmHg. s/p Lexiscan MPI Stress Test today, which was negative. Currently stable cardiac status. Chest pain resolved. AMI ruled out. Continue current cardiac regimen. Recommend outpatient sleep eval upon discharge. Pt may discharge from cardiology standpoint. Recommend f/u with [facility] within 1-2 weeks. Case reviewed in conjunction with Dr. Graves, who agrees with the assessment and plan of care. - Patient Problems (1) Chest pain Current Visit: Yes Status: Resolved (2) JANET (obstructive sleep apnea) Current Visit: Yes Status: Suspected (3) Hypertension Current Visit: Yes Status: Chronic Qualifiers: Hypertension type: essential hypertension Qualified Code(s): I10 - Essential (primary) hypertension (4) HLD (hyperlipidemia) Current Visit: Yes Status: Chronic Qualifiers: Hyperlipidemia type: mixed hyperlipidemia Qualified Code(s): E78.2 - Mixed hyperlipidemia (5) DM2 (diabetes mellitus, type 2) Current Visit: Yes Status: Chronic (6) GERD (gastroesophageal reflux disease) Current Visit: Yes Status: Chronic (7) Chronic back pain Current Visit: Yes Status: Chronic (8) H/O: CVA (cerebrovascular accident) Current Visit: Yes Status: Chronic Subjective Date of service: 08/19/20 Principal diagnosis: Chest Pain Interval history: Pt resting in bed. No current cardiac complaints. For stress testing today. Tele reviewed in sinus rhythm HR 90s with a bout of sinus tach noted overnight. Objective Vital Signs Temp Pulse Resp BP Pulse Ox 08/19/20 11:20 98.0 F 110 H 116/74 94 08/19/20 10:06 98.8 F 92 H 20 154/84 93 08/19/20 10:00 77 08/19/20 09:19 145/98 08/19/20 09:17 159/99 08/19/20 09:15 149/83 08/19/20 09:14 146/83 08/19/20 09:11 145/96 08/19/20 08:45 136/99 08/19/20 03:40 98.2 F 100 H 20 147/97 97 08/18/20 23:16 97.8 F 102 H 16 140/85 90 08/18/20 19:08 98.1 F 95 H 16 130/83 92 08/18/20 18:22 84 08/18/20 16:54 97.9 F 83 18 138/95 99 - Physical Examination General: No Apparent Distress HEENT: Positive: Normocephaly Neck: Positive: neck supple, trachea midline Cardiac: Positive: Reg Rate and Rhythm, S1/S2 Lungs: Positive: Decreased Breath Sounds, No Wheeze, Rales, Rhonchi Neuro: Positive: Grossly Intact Abdomen: Positive: Soft. Negative: Tender Skin: Negative: Rash Musculoskeletal: Normal Range of Motion Extremities: Absent: edema - Imaging and Cardiology EKG: report reviewed, image reviewed Echo: report reviewed (08/17/2020 - mild concentric LVH, EF 60-65%, impaired LV relaxation, RVSP 9mmHg. ) - Telemetry EKG Rhythm: Sinus Rhythm - EKG Sinus rhythms and dysrhythmias: sinus rhythm Myocardial infarction: septal [place] (old age or ind, anterior [place] (old age or i
--- NOTE | 2020-08-19 13:25 | Discharge Summary ---
Providers - Providers Date of Admission: 08/18/20 14:33 Date of discharge: 08/19/20 Attending physician: AYLA ZEPEDA 08/16/20 23:58 Consult to Dietitian/Nutrition [CONS] Routine Physician Instructions: Reason For Exam: Reason for Consult: Diet education 08/17/20 13:57 Consult to Physician [CONS] Routine Comment: Consulting Provider: GALEN CHEN Physician Instructions: Reason For Exam: chest pain [facility] Reason for admission: chest pain Condition: Fair Hospital course: 45-year-old -Mosotho male with a history of hypertension, hyperlipidemia, diabetes mellitus type 2, history of CVA in the past with no residual deficit, morbid obesity presented to the ER with complaints of Retrosternal chest pain for about a week. Patient was evaluated in the ER, initial cardiac enzyme and EKG was unremarkable, chest x-ray showed no infiltrates. Patient was admitted for further evaluation and management, cardiology was consulted. Echo findings noted - mild concentric LVH, EF 60-65%, impaired LV relaxation, RVSP 9mmHg. s/p Lexiscan MPI Stress Test today, which was negative. Currently stable cardiac status. Chest pain resolved. AMI ruled out. Continue current cardiac regimen. Recommend outpatient sleep eval upon discharge. Patient was cleared for discharge by cardiology. Recommend f/u with [facility] within 1-2 weeks. Discharge diagnosis: (1) Chest pain Current Visit: Yes Status: Resolved Likely due to GERD (2) JANET (obstructive sleep apnea) Current Visit: Yes Status: Suspected (3) Hypertension Current Visit: Yes Status: Chronic Qualifiers: Hypertension type: essential hypertension Qualified Code(s): I10 - Essential (primary) hypertension (4) HLD (hyperlipidemia) Current Visit: Yes Status: Chronic Qualifiers: Hyperlipidemia type: mixed hyperlipidemia Qualified Code(s): E78.2 - Mixed hyperlipidemia (5) DM2 (diabetes mellitus, type 2) Current Visit: Yes Status: Chronic uncontrolled A1c 12.6 (6) GERD (gastroesophageal reflux disease) Current Visit: Yes Status: Chronic (7) Chronic back pain Current Visit: Yes Status: Chronic (8) H/O: CVA (cerebrovascular accident) Current Visit: Yes Status: Chronic (9) Morbid obesity Current Visit: Yes Status: Chronic Disposition: TO HOME OR SELFCARE Time spent for discharge: 34 minutes Core Measure Documentation - Palliative Care Palliative Care/ Comfort Measures: Not Applicable - Core Measures Any of the following diagnoses?: none Exam - Physical Exam Narrative exam: GENERAL: well-developed and morbidly obese -Mosotho male lying on bed appeared to be in no discomfort. HEENT: Normocephalic. Atraumatic. No conjunctival congestion or icterus. Patient has moist mucous membranes. NECK: Supple. Trachea midline. CHEST/LUNGS: Clear to auscultated bilaterally, breathing nonlabored. No wheezes crackles or rhonchi. HEART/CARDIOVASCULAR: Regular in rate and rhythm. S1 and S2 positive. ABDOMEN: Abdomen is soft, nontender. Patient has normal bowel sounds. SKIN: There is no rash. Warm and dry. NEURO: No focal motor deficit. Follows command. MUSCULOSKELETAL: No joint effusion or tenderness. EXTRIMITY: No edema, no cyanosis or clubbing. PSYCH: Cooperative. - Constitutional Vitals: Temp Pulse Resp BP Pulse Ox 98.0 F 110 H 20 116/74 94 08/19/20 11:20 08/19/20 11:20 08/19/20 10:06 08/19/20 11:20 08/19/20 11:20 Plan Activity: advance as tolerated Weight Bearing Status: Weight Bear as Tolerated Diet: low fat, low salt, diabetic Special Instructions: record blood sugar diary Additional Instructions: Follow-up with [facility] in 1 week. Recommend sleep study for possible sleep apnea as outpatient. Recommend better glycemic control. Please follow-up with PCP for further medication adjustment for your uncontrolled diabetes mellitus. Follow up with: HOLLY COLLINS MD [Primary Care Provider] - 3-5 Days LEATHA AMBROSIO MD [Staff Physician] - 7 Days Prescriptions: Pantoprazole [Protonix] 40 mg PO QDAY #30 tablet
== END 2020-08-19 17:01 | disposition home or self-care (01) | DRG 392 ==
LOC: ED 19:40 → 4A 23:34 → OBSVTOIN 08-18 14:33
PROVIDERS: ADMIT Internal Medicine Geriatric Medicine; ATTEND Internal Medicine
DX: K21.9 Gastro-esophageal reflux disease without esophagitis (principal); Z68.41 Body mass index [BMI] 40.0-44.9, adult; E66.01 Morbid (severe) obesity due to excess calories; I10 Essential (primary) hypertension; E11.9 Type 2 diabetes mellitus without complications; G43.909 Migraine, unspecified, not intractable, without status migrainosus; E78.5 Hyperlipidemia, unspecified; G89.29 Other chronic pain; M54.9 Dorsalgia, unspecified; G47.33 Obstructive sleep apnea (adult) (pediatric); Z86.73 Personal history of transient ischemic attack (TIA), and cerebral infarction without residual deficits; Z91.018 Allergy to other foods
CPT/HCPCS: 36415; 71045; 78452; 80048; 80061; 80307; 82962; 83036; 84484; 85025; 85610; 93005; 93017; 93306; G0378; A9270-GY; A9502; J1650; J1815; J2270; J2405; J2785; J3010

== ENCOUNTER 2021-11-10 12:16 | Emergency (ER) | payer SELFPAY ==
[2021-11-10 12:45] VITALS: BP 142/92
[2021-11-10] MEDS ORDERED: HYDROcodone/ACETAMINOPHEN 5-325 MG TAB PO STA (13:38)
--- NOTE | 2021-11-10 13:42 | Emergency Department Report ---
ED Fall HPI - General Chief Complaint: Fall Stated Complaint: FELL DOWN STAIRS TWISTED /NECK/NECK/LEGS/FEET Time Seen by Provider: 11/10/21 13:16 Source: patient Mode of arrival: Ambulatory - History of Present Illness Initial Comments: 46-year-old male with history of hypertension and diabetes presents emerged department complaining of continued pain after fall down numerous stairs 1 week ago. Patient states that since the fall he has been having continued spasms and aches to his neck primarily with twisting and turning of the neck pain is dull and throbbing worse with palpation and range of motion. Reports numbness and tingling to the upper extremity also has pain to the lumbar area with palpation. She complains of shoot down his left leg. No numbness or tingling to the foot. He is unsure whether the numbness is related to the diabetes for the injury but the symptoms did not occur until MD Complaint: fall -: Sudden, week(s) (1 week ago) Fall From: standing, down stairs (#) (15) Fall Witnessed: no Place Fall Occurred: home Loss of Consciousness: none Prolonged Down Time?: no Symptoms Prior to Fall: none Severity: moderate Quality: dull Associated Symptoms: numbness (Left foot). denies: shortness of breath, abdominal pain, hematuria, vertigo, confusion - Related Data Previous Rx's Medication Instructions Recorded Last Taken Type Ketorolac [Toradol] 10 mg PO Q6H PRN #15 tablet 11/10/21 Unknown Rx methOCARBAMOL [Robaxin] 750 mg PO Q8H PRN #21 tablet 11/10/21 Unknown Rx Allergies Allergy/AdvReac Type Severity Reaction Status Date / Time No Known Allergies Allergy Unverified 11/10/21 12:41 ED Review of Systems ROS: Stated complaint: FELL DOWN STAIRS TWISTED /NECK/NECK/LEGS/FEET Other details as noted in HPI Comment: All other systems reviewed and negative ED Past Medical Hx - Medications Home Medications: Home Medications Medication Instructions Recorded Confirmed Last Taken Type Ketorolac [Toradol] 10 mg PO Q6H PRN #15 tablet 11/10/21 Unknown Rx methOCARBAMOL [Robaxin] 750 mg PO Q8H PRN #21 tablet 11/10/21 Unknown Rx ED Physical Exam - General Limitations: No Limitations General appearance: alert, in no apparent distress - Head Head exam: Present: atraumatic, normocephalic - Eye Eye exam: Present: normal appearance, PERRL, EOMI Pupils: Present: normal accommodation - ENT ENT exam: Present: normal exam, mucous membranes moist, TM's normal bilaterally - Neck Neck exam: Present: normal inspection - Respiratory Respiratory exam: Present: normal lung sounds bilaterally. Absent: respiratory distress - Cardiovascular Cardiovascular Exam: Present: regular rate, normal rhythm. Absent: systolic murmur, diastolic murmur, rubs, gallop - GI/Abdominal GI/Abdominal exam: Present: soft, normal bowel sounds - Rectal Rectal exam: Present: deferred - Extremities Exam Extremities exam: Present: normal inspection - Back Exam Back exam: Present: normal inspection - Neurological Exam Neurological exam: Present: alert, oriented X3 - Psychiatric Psychiatric exam: Present: normal affect, normal mood - Skin Skin exam: Present: warm, dry, intact, normal color. Absent: rash ED Course Vital Signs 11/10/21 12:43 Temperature 98.5 F Pulse Rate 90 Blood Pressure 142/92 [Right] ED Medical Decision Making - Radiology Data Radiology results: report reviewed [address] [address] XRay Report Signed Patient: LIZZIE FRASER MR#: [id number] : 1975 Acct:[id number] Age/Sex: 46 / M ADM Date: 11/10/21 Loc: ED Attending Dr: Ordering Physician: LYNN YUAN Date of Service: 11/10/21 Procedure(s): XR spine cervical 2-3V Accession Number(s): [id number] cc: LYNN YUAN Fluoro Time In Minutes: CERVICAL SPINE 3 VIEWS INDICATION / CLINICAL INFORMATION: neck pain. COMPARISON: None available. FINDINGS: BONES / JOINT(S): No acute fracture or subluxation. Mild degenerative disc disease at C4-5 and C5- 6. SOFT TISSUES: No significant abnormality. ADDITIONAL FINDINGS: None. IMPRESSION: 1. No acute findings. Signer Name: Fadi Berman MD Signed: 11/10/2021 2:41 PM Workstation Name: [id number] Transcribed By: GEORGE Dictated By: Fadi Berman MD Electronically Authenticated By: Fadi Berman MD Signed Date/Time: 11/10/211440 DD/ 39 TD/TT: [facility] [address] [place] [address] XRay Report Signed Patient: LIZZIE FRASER MR#: [id number] : 1975 Acct:[id number] Age/Sex: 46 / M ADM Date: 11/10/21 Loc: ED Attending Dr: Ordering Physician: LYNN YUAN Date of Service: 11/10/21 Procedure(s): XR spine lumbosacral 2-3V Accession Number(s): [id number] cc: LYNN YUAN Fluoro Time In Minutes: LUMBAR SPINE 3 VIEW INDICATION / CLINICAL INFORMATION: fall stairs back pain. COMPARISON: None available. FINDINGS: BONES / JOINT(S): No acute fracture or subluxation. No other significant a bnormality. SOFT TISSUES: No significant abnormality. ADDITIONAL FINDINGS: None. IMPRESSION: 1. No acute findings. Signer Name: Fadi Berman MD Signed: 11/10/2021 2:42 PM Workstation Name: [id number] Transcribed By: GEORGE Dictated By: Fadi Berman MD Electronically Authenticated By: Fadi Berman MD Signed Date/Time: 11/10/211441 DD/ 40 TD/TT: - Medical Decision Making 46-year-old male presents emerged department at the expense of mechanical fall downstairs 1 week ago with continued pain to his neck and lumbar area which resulted in numbness and tingling to his foot. Presents to have areas evaluated for the need for possible treatment. Critical care attestation.: If time is entered above; I have spent that time in minutes in the direct care of this critically ill patient, excluding procedure time. ED Disposition Clinical Impression: Low back pain potentially associated with radiculopathy, Cervical strain Disposition: 01 HOME / SELF CARE / HOMELESS Is pt being admited?: No Does the pt Need Aspirin: No Condition: Stable Instructions: How to Use Cold Therapy, Cervical Sprain Prescriptions: methOCARBAMOL [Robaxin] 750 mg PO Q8H PRN #21 tablet PRN Reason: Spasms Ketorolac [Toradol] 10 mg PO Q6H PRN #15 tablet PRN Reason: Pain
--- NOTE | 2021-11-10 14:45 | XRay Report ---
CERVICAL SPINE 3 VIEWS INDICATION / CLINICAL INFORMATION: neck pain. COMPARISON: None available. FINDINGS: BONES / JOINT(S): No acute fracture or subluxation. Mild degenerative disc disease at C4-5 and C5-6. SOFT TISSUES: No significant abnormality. ADDITIONAL FINDINGS: None. IMPRESSION: 1. No acute findings. Signer Name: Fadi Berman MD Signed: 11/10/2021 2:41 PM Workstation Name: [email or web address]
--- NOTE | 2021-11-10 14:46 | XRay Report ---
LUMBAR SPINE 3 VIEW INDICATION / CLINICAL INFORMATION: fall stairs back pain. COMPARISON: None available. FINDINGS: BONES / JOINT(S): No acute fracture or subluxation. No other significant abnormality. SOFT TISSUES: No significant abnormality. ADDITIONAL FINDINGS: None. IMPRESSION: 1. No acute findings. Signer Name: Fadi Berman MD Signed: 11/10/2021 2:42 PM Workstation Name: [id number]
== END 2021-11-10 15:24 | disposition home or self-care (01) ==
LOC: UNMERGE 12:16 → ED 12:16 → MERGE 12:16 → ED 15:24
DX: S16.1XXA Strain of muscle, fascia and tendon at neck level, initial encounter (principal); M54.16 Radiculopathy, lumbar region; Z91.018 Allergy to other foods; X58.XXXA Exposure to other specified factors, initial encounter; Y93.89 Activity, other specified; Y92.89 Other specified places as the place of occurrence of the external cause; Y99.8 Other external cause status
CPT/HCPCS: 72040; 72100; 99283

== ENCOUNTER 2021-12-19 10:54 | Emergency (ER) | payer SELFPAY ==
[2021-12-19] MEDS ORDERED: ASPIRIN 325 MG TAB PO ONE (11:04)
--- NOTE | 2021-12-19 11:28 | XRay Report ---
CHEST 2 VIEWS INDICATION / CLINICAL INFORMATION: Chest pain for 3 days. COMPARISON: 08/16/20. FINDINGS: SUPPORT DEVICES: None. HEART / MEDIASTINUM: The heart size and pulmonary vasculature are normal. The aorta is normal in john jorge. LUNGS / PLEURA: No significant pulmonary or pleural abnormality. No pneumothorax. ADDITIONAL FINDINGS: No significant additional findings. IMPRESSION: No acute abnormality or significant change. Signer Name: Aries Gooden MD Signed: 12/19/2021 11:24 AM Workstation Name: [id number]
[2021-12-19 12:14] LABS: Basophils % (Auto) 0.7 % (0.0-1.8); Eosinophils # (Auto) 0.1 K/mm3 (0.0-0.4); Eosinophils % (Auto) 2.6 % (0.0-4.3); Hematocrit 41.9 % (35.5-45.6); Hemoglobin 13.1 gm/dl (11.8-15.2); Lymphocytes # (Auto) 1.4 K/mm3 (1.2-5.4); Lymphocytes % (Auto) 31.1 % (13.4-35.0); Mean Corpuscular HGB Conc 31 % (32-34); Mean Corpuscular Volume 75 fl (84-94); Monocytes # (Auto) 0.3 K/mm3 (0.0-0.8); Monocytes % (Auto) 6.9 % (0.0-7.3); Platelet Count 285 K/mm3 (140-440); Red Blood Count 5.57 M/mm3 (3.65-5.03); Red Cell Distribution Width 16.4 % (13.2-15.2)
[2021-12-19 13:01] LABS: Alanine Aminotransferase 15 units/L (7-56); Albumin 3.8 g/dL (3.9-5); BUN/Creatinine Ratio 15; Blood Urea Nitrogen 20 mg/dL (9-20); Calcium 9.4 mg/dL (8.4-10.2); Hemolysis Index 7
--- NOTE | 2021-12-19 13:36 | Electrocardiograph Report ---
[facility] Test Date: 2021-12-19 Test Time: 11:45:03 Pat Name: LIZZIE FRASER Department: Room: Gender: M Application Tester: JANET : 1975 Requested By: ED DOC Order Number: [id number] Reading MD: Angel Looney Measurements Intervals [place] Rate: 74 P: 31 WI: 149 QRS: 0 QRSD: 84 T: -29 QT: 360 QTc: 400 Interpretive Statements Sinus rhythm Nonspecific T wave flattening No previous ECG available for comparison Electronically Signed On 12-19-2021 13:36:10 EDT by Angel Looney
[2021-12-19] MEDS ORDERED: GABAPENTIN 100 MG CAP PO ONE (23:38)
[2021-12-19] MEDS ORDERED: ACETAMINOPHEN 325 MG TAB PO ONE (23:38)
[2021-12-19] MEDS ORDERED: IBUPROFEN 400 MG TAB PO ONE (23:38)
--- NOTE | 2021-12-19 23:43 | Emergency Department Report ---
ED General Adult HPI - General Chief complaint: Chest Pain Stated complaint: BILATERAL FEET SWELLING/CHEST PAIN Time Seen by Provider: 12/19/21 23:29 Source: patient, RN notes reviewed, old records reviewed Mode of arrival: Ambulatory Limitations: No Limitations - History of Present Illness Initial comments: The patient was evaluated in the emergency department for symptoms described in the history of present illness. He/she was evaluated in the context of the global COVID-19 pandemic, which necessitated consideration that the patient might be at risk for infection with the virus that causes COVID-19. Institutional protocols and algorithms that pertain to the evaluation of patients at risk for COVID-19 are in a state of rapid change based on i nformation released by regulatory bodies including the CDC and federal and state organizations. These policies and algorithms were followed during the patient's care in the emergency department. Please note that these policies, procedures and recommendations changed on a rapid basis. This is a 46-year-old gentleman. His past medical history includes chest wall pain, hypertension, hyperlipidemia, chronic pain, GERD, type 2 diabetes and obstructive sleep apnea. He had a cardiac nuclear stress test at this hospital in 2020 which is negative for ischemic findings. He presents to the emergency room today with complaint of 3 to 4 days of chest wall pain. No vomiting, or diaphoresis. No travel, surgery, immobilization, or DVT/PE risk factors. He does have lower extremity pain and swelling, which he thinks is secondary to neuropathic pain. He wants to make sure he does not have cellulitis. He has not been compliant with CPAP for the past week. -: Gradual, days(s) Location: chest Radiation: non-radiation Quality: aching Consistency: constant Improves with: rest Worsens with: other (Movement and palpation.) - Related Data Home Medications Medication Instructions Recorded Confirmed Last Taken cloNIDine [Catapres] 0.2 mg PO BID 11/27/17 08/17/20 08/16/20 Ferrous Sulfate [Iron 325 MG] 325 mg PO BID 02/23/19 08/17/20 Unknown Glimepiride [Amaryl] 4 mg PO DAILY 02/23/19 08/17/20 Unknown Metformin HCl [metFORMIN] 1,000 mg PO BID 02/23/19 08/17/20 08/16/20 Previous Rx's Medication Instructions Recorded Last Taken Type Aspirin EC [Halfprin EC] 81 mg PO QDAY #90 tablet. 12/19/21 Unknown Rx AtorvaSTATin [Lipitor] 20 mg PO DAILY #30 tab 12/19/21 Unknown Rx Pantoprazole [Protonix TAB] 40 mg PO QDAY #30 tablet 12/19/21 Unknown Rx Triamterene-Hctz 75-50 mg Tab 1 tab PO DAILY #30 tab 12/19/21 Unknown Rx amLODIPine 10 mg PO DAILY #30 tab 12/19/21 Unknown Rx Allergies Allergy/AdvReac Type Severity Reaction Status Date / Time tomato [Tomato] Allergy Swelling Verified 11/13/21 12:01 ED Review of Systems ROS: Stated complaint: BILATERAL FEET SWELLING/CHEST PAIN Other details as noted in HPI Constitutional: denies: fever Eyes: denies: eye discharge ENT: denies: epistaxis Respiratory: denies: cough Cardiovascular: chest pain, edema Gastrointestinal: denies: abdominal pain, vomiting Musculoskeletal: myalgia Neurological: denies: weakness Psychiatric: anxiety ED Past Medical Hx - Past Medical History Hx Hypertension: Yes Hx CVA: Yes Hx Congestive Heart Failure: No Hx Diabetes: Yes Hx GERD: Yes Hx Headaches / Migraines: Yes Hx Asthma: No Hx COPD: No Additional medical history: sleep apnea, hiatal hernia. chronic back pain, "heart problems" - Surgical History Additional Surgical History: Right upper extremity surgery secondary to trauma, cardiac catheterization - Social History Smoking Status: Never Smoker - Medications Home Medications: Home Medications Medication Instructions Recorded Confirmed Last Taken Type cloNIDine [Catapres] 0.2 mg PO BID 11/27/17 08/17/20 08/16/20 History Ferrous Sulfate [Iron 325 MG] 325 mg PO BID 02/23/19 08/17/20 Unknown History Glimepiride [Amaryl] 4 mg PO DAILY 02/23/19 08/17/20 Unknown History Metformin HCl [metFORMIN] 1,000 mg PO BID 02/23/19 08/17/20 08/16/20 History Aspirin EC [Halfprin EC] 81 mg PO QDAY #90 tablet. 12/19/21 Unknown Rx AtorvaSTATin [Lipitor] 20 mg PO DAILY #30 tab 12/19/21 Unknown Rx Pantoprazole [Protonix TAB] 40 mg PO QDAY #30 tablet 12/19/21 Unknown Rx Triamterene-Hctz 75-50 mg Tab 1 tab PO DAILY #30 tab 12/19/21 Unknown Rx amLODIPine 10 mg PO DAILY #30 tab 12/19/21 Unknown Rx ED Physical Exam - General Limitations: No Limitations General appearance: alert, in no apparent distress, obese - Head Head exam: Present: atraumatic, normocephalic - Eye Eye exam: Present: normal appearance, EOMI - ENT ENT exam: Present: normal exam, normal orophraynx, mucous membranes moist, normal external ear exam - Neck Neck exam: Present: normal inspection, full ROM. Absent: tenderness, meningismus - Respiratory Respiratory exam: Present: normal lung sounds bilaterally, chest wall tenderness. Absent: respiratory distress, wheezes, rales, rhonchi, stridor - Cardiovascular Cardiovascular Exam: Present: regular rate, normal rhythm, normal heart sounds. Absent: bradycardia, tachycardia, irregular rhythm, systolic murmur, diastolic murmur, rubs, gallop - GI/Abdominal GI/Abdominal exam: Present: soft. Absent: distended, tenderness, guarding, rebound, rigid, pulsatile mass - Rectal Rectal exam: Present: deferred - Extremities Exam Extremities exam: Present: normal inspection, full ROM, pedal edema (1+ edema in the bilateral lower extremity), other (2+ pulses noted in the bilateral upper and lower extremities. There is no palpable cord. negative Homans sign. Muscular compartments are soft. The pelvis is stable.). Absent: calf tenderness - Back Exam Back exam: Present: normal inspection. Absent: tenderness, CVA tenderness (R), CVA tenderness (L), paraspinal tenderness, vertebral tenderness - Neurological Exam Neurological exam: Present: alert, oriented X3, normal gait, other (No facial droop. Tongue midline. Extraocular movements intact bilaterally. Facial sensation intact to light touch in V1, V2, V3 distribution bilaterally. 5 and a 5 strength in 4 extremities. Sensation intact to light touch in 4 extremities.). Absent: motor sensory deficit - Psychiatric Psychiatric exam: Present: normal affect, normal mood - Skin Skin exam: Present: warm, dry, intact, normal color. Absent: rash ED Course Vital Signs 12/19/21 11:02 Temperature 97.7 F Pulse Rate 80 Respiratory 16 Rate Blood Pressure 151/97 [Left] O2 Sat by Pulse 96 Oximetry - Pulse Oximetry Interpretation Digit-Finger Initial Pulse Oximetry Readin O2 Sat by Pulse Oximetry: 99 Actions Taken: none ED Medical Decision Making - Lab Data Result diagrams: 12/19/21 11:34 12/19/21 11:34 Vital Signs 12/19/21 11:02 Temperature 97.7 F Pulse Rate 80 Respiratory 16 Rate Blood Pressure 151/97 [Left] O2 Sat by Pulse 96 Oximetry Lab Results 12/19/21 12/19/21 12/19/21 Range/Units 11:34 11:34 13:45 WBC 4.7 (4.5-11.0) K/mm3 RBC 5.57 H (3.65-5.03) M/mm3 Hgb 13.1 (11.8-15.2) gm/dl Hct 41.9 (35.5-45.6) % MCV 75 L (84-94) fl MCH 24 L (28-32) pg MCHC 31 L (32-34) % RDW 16.4 H (13.2-15.2) % Plt Count 285 (140-440) K/mm3 Lymph % (Auto) 31.1 (13.4-35.0) % [place] % (Auto) 6.9 (0.0-7.3) % Eos % (Auto) 2.6 (0.0-4.3) % Baso % (Auto) 0.7 (0.0-1.8) % Lymph # (Auto) 1.4 (1.2-5.4) K/mm3 [place] # (Auto) 0.3 (0.0-0.8) K/mm3 Eos # (Auto) 0.1 (0.0-0.4) K/mm3 Baso # (Auto) 0.0 (0.0-0.1) K/mm3 Seg Neutrophils % 58.7 (40.0-70.0) % Seg Neutrophils # 2.7 (1.8-7.7) K/mm3 Sodium 138 (137-145) mmol/L Potassium 4.2 (3.6-5.0) mmol/L Chloride 101.7 (98-107) mmol/L Carbon Dioxide 22 (22-30) mmol/L Anion Gap 19 mmol/L BUN 20 (9-20) mg/dL Creatinine 1.3 (0.8-1.3) mg/dL Estimated GFR > 60 ml/min BUN/Creatinine Ratio 15 % Glucose 241 H (75-100) mg/dL Calcium 9.4 (8.4-10.2) mg/dL Total Bilirubin 0.30 (0.1-1.2) mg/dL AST 12 (5-40) units/L ALT 15 (7-56) units/L Alkaline Phosphatase 67 (35-129) units/L Troponin T < 0.010 < 0.010 (0.00-0.029) ng/mL Total Protein 7.7 (6.3-8.2) g/dL Albumin 3.8 L (3.9-5) g/dL Albumin/Globulin Ratio 1.0 % 12/19/21 Range/Units 16:42 WBC (4.5-11.0) K/mm3 RBC (3.65-5.03) M/mm3 Hgb (11.8-15.2) gm/dl Hct (35.5-45.6) % MCV (84-94) fl MCH (28-32) pg MCHC (32-34) % RDW (13.2-15.2) % Plt Count (140-440) K/mm3 Lymph % (Auto) (13.4-35.0) % [place] % (Auto) (0.0-7.3) % Eos % (Auto) (0.0-4.3) % Baso % (Auto) (0.0-1.8) % Lymph # (Auto) (1.2-5.4) K/mm3 [place] # (Auto) (0.0-0.8) K/mm3 Eos # (Auto) (0.0-0.4) K/mm3 Baso # (Auto) (0.0-0.1) K/mm3 Seg Neutrophils % (40.0-70.0) % Seg Neutrophils # (1.8-7.7) K/mm3 Sodium (137-145) mmol/L Potassium (3.6-5.0) mmol/L Chloride (98-107) mmol/L Carbon Dioxide (22-30) mmol/L Anion Gap mmol/L BUN (9-20) mg/dL Creatinine (0.8-1.3) mg/dL Estimated GFR ml/min BUN/Creatinine Ratio % Glucose (75-100) mg/dL Calcium (8.4-10.2) mg/dL Total Bilirubin (0.1-1.2) mg/dL AST (5-40) units/L ALT (7-56) units/L Alkaline Phosphatase (35-129) units/L Troponin T < 0.010 (0.00-0.029) ng/mL Total Protein (6.3-8.2) g/dL Albumin (3.9-5) g/dL Albumin/Globulin Ratio % - EKG Data -: EKG Interpreted by Sd EKG shows normal: sinus rhythm Rate: normal - EKG Data When compared to previous EKG there are: no significant change 12/19/21 23:44 The EKG today is interpreted at 11: 45 Sinus rhythm, normal axis, rate 74 bpm. Motion artifact, low voltage in the lateral leads. Persistent abnormal EKG. This is not a STEMI. This is unchanged from prior EKG from August 2020 - Radiology Data Radiology results: pending, report reviewed, image reviewed CHEST 2 VIEWS INDICATION / CLINICAL INFORMATION: Chest pain for 3 days. COMPARISON: 08/16/20. FINDINGS: SUPPORT DEVICES: None. HEART / MEDIASTINUM: The heart size and pulmonary vasculature are normal. The aorta is normal in caliber. LUNGS / PLEURA: No significant pulmonary or pleural abnormality. No pneumothorax. ADDITIONAL FINDINGS: No significant additional findings. IMPRESSION: No acute abnormality or significant change. Signer Name: Aries Gooden MD Signed: 12/19/2021 10:24 AM Workstation Name: [id number] - Medical Decision Making Differential diagnosis, including but not limited to: Pneumonia, CHF, costochondritis, neuropathy, coronary artery disease Assessment and plan: 46-year-old gentleman, who is not currently tachycardic, tachypneic or hypoxic, who denies DVT and pulmonary embolism risk factors, who is low risk by Wells criteria for pulmonary embolism, presenting with reproducible anterior chest wall pain. Pain present for 3 days. Troponin negative x3. X-ray of the chest unremarkable. Laboratory studies unremarkable. Does not appear to have decompensated CHF. Cardiovascular risk factor profile reviewed and appreciated. He had a negative cardiac nuclear stress test last year. Suspect costochondritis, likely secondary to obstructive sleep apnea. Counseled to remain compliant with medications, and CPAP. Also educated patient on where he maintain insurance, through the [email or web address] website. Patient observed in this department for hours without clinical decompensation. I will refill his maintenance medications. We will give him follow-up with outpatient primary care and/or cardiology. Return precautions are reviewed. Critical care attestation.: If time is entered above; I have spent that time in minutes in the direct care of this critically ill patient, excluding procedure time. ED Disposition Clinical Impression: Body mass index 36.0-36.9, adult, Chest wall pain, Obstructive sleep apnea, Medication refill Disposition: HOME / SELF CARE / HOMELESS Is pt being admited?: No Does the pt Need Aspirin: No Condition: Good Instructions: Costochondritis, Sleep Apnea, [id number] Additional Instructions: We recommend that the patient exercise as tolerated, diet, and lose weight. A void consumption of alcohol, tobacco, smoke products. Recommend that patient remain compliant with CPAP. The patient is encouraged to follow-up with his outpatient primary care doctor or paralegal instructor within the next week. Patient will be given follow-up information for these respective providers. Patient may go into the [email or web address] website, and follow instructions to obtain insurance to the [email or web address] website. Please return to the emergency room right away with new pain, worsened pain, migration of pain, projectile vomiting, change in mental status, confusion, inability tolerate liquid feeds, new, worsened or different symptoms not present on the initial emergency room evaluation Patient should use his CPAP as directed and prescribed by his sleep specialist. Patient is encouraged to use distilled water for his CPAP machine if it requires it. If patient has run out of CPAP supplies, he should be able to purchase them from [employer] or some other supplier. Referrals: [facility] [Provider Group] - 3-5 Days [facility] [Provider Group] - 3-5 Days Forms: Work/School Release Form(ED)
[2021-12-20 01:08] VITALS: BP 169/104
== END 2021-12-20 00:05 | disposition home or self-care (01) ==
LOC: ED 10:54
DX: R07.89 Other chest pain (principal); Z76.0 Encounter for issue of repeat prescription; Z68.36 Body mass index [BMI] 36.0-36.9, adult; G47.33 Obstructive sleep apnea (adult) (pediatric); I10 Essential (primary) hypertension; Z86.73 Personal history of transient ischemic attack (TIA), and cerebral infarction without residual deficits; E11.9 Type 2 diabetes mellitus without complications; K21.9 Gastro-esophageal reflux disease without esophagitis; G43.909 Migraine, unspecified, not intractable, without status migrainosus; G89.29 Other chronic pain; M54.9 Dorsalgia, unspecified; Z98.890 Other specified postprocedural states; Z91.018 Allergy to other foods
CPT/HCPCS: 36415; 71046; 80053; 84484; 85025; 93005; 99284